=== PATIENT | female | born 1930 | race Caucasian/White ===

== ENCOUNTER 2016-06-27 11:21 | Inpatient (IN) | payer MEDICARE ==
[2016-06-27 16:11] VITALS: BMI 28.9
[2016-06-27] MEDS ORDERED: ALPRAZolam 0.25 MG TAB PO PRN (17:23)
[2016-06-27] MEDS ORDERED: NALOXONE 0.4 MG/ML 1 ML VIAL IV PRN (17:23)
[2016-06-27] MEDS ORDERED: ACETAMINOPHEN TAB 325 MG TAB PO PRN (17:23)
[2016-06-27] MEDS ORDERED: MELATONIN 3 MG TABLET PO PRN (17:23)
[2016-06-27] MEDS ORDERED: traMADol 50 MG TAB PO PRN (17:23)
[2016-06-27 18:13] LABS: Basophils # (A) 0.2 k/uL (0-0.2); Basophils % (A) 1 %; CH 32.5; CHCM 36.6; Eosinophils # (A) 4.3 k/uL (0-0.7); Eosinophils % (A) 19 %; HDW 2.81; HGB 10.3 gm/dL (11.4-16.0); Luc # (Auto) 0.51; Luc % (Auto) 2; Lymphocytes % (A) 9 %; MCH 31.7 pg (25.0-35.0); MCHC 35.4 g/dL (31.0-37.0); MCV 89.4 fL (80.0-100.0); Mean Platelet Volume 6.4; Monocytes # (A) 0.8 k/uL (0-1.0); Monocytes % (A) 3 %; Neutrophils # (A) 15.1 k/uL (1.3-7.7); Neutrophils % (A) 66 %; RBC 3.24 m/uL (3.80-5.40); RDW 13.5 % (11.5-15.5); WBC 22.9 k/uL (3.8-10.6)
[2016-06-27] MEDS: SODIUM CHLORIDE 0.9% 1,000 ML IV SCH (18:13)
[2016-06-27 18:30] LABS: Calcium 9.6 mg/dL (8.4-10.2); Magnesium 2.8 mg/dL (1.6-2.3); Phosphorous 3.8 mg/dL (2.5-4.5); Potassium 3.9 mmol/L (3.5-5.1); Total Protein 8.9 g/dL (6.3-8.2)
[2016-06-27] MEDS: AZITHROMYCIN 500 MG in SODIUM CHLORIDE 0.9% 250 ML IVPB SCH (19:00)
[2016-06-27] MEDS: FUROSEMIDE 10 MG/ML 2 ML VIAL IV SCH (19:02)
--- NOTE | 2016-06-27 19:08 | CT ---
EXAMINATION TYPE: CT chest wo con DATE OF EXAM: 06/27/2016 6:45 PM COMPARISON: NONE HISTORY: cough and congestion CT DLP: 372.3 mGycm Automated exposure control for dose reduction was used. FINDINGS: There is a patchy nodular infiltrate in the lateral aspect of the right upper lobe. The largest area measures 3 cm. There are other areas that measure up to 1 to 2 cm. There is no pleural effusion. The re is mild linear density at the lung bases consistent with subsegmental atelectasis. There is no per icardial effusion. Exam is limited by the lack of contrast. There is no evidence of aortic aneurysm. I see no definite hilar mass. The bony thorax appears intact. There is degenerative spurring in the t horacic spine. There is some mediastinal adenopathy with lymph nodes that measure almost 2 cm. IMPRESSION: THERE IS A RIGHT UPPER LOBE PATCHY NODULAR INFILTRATE. THE APPEARANCE IS NONSPECIFIC. I WOULD CONSIDE R NEOPLASTIC PROCESS AND INFLAMMATORY DISEASE. FOLLOW-UP IS RECOMMENDED. THIS DENSITY IS NEW COMPARED TO OLD CHEST X-RAY OF 02/05/2016 AND INFLAMMATORY DISEASE IS MORE LIKELY THEREFORE. THERE ARE NONSPE CIFIC MEDIASTINAL LYMPH NODES THAT MEASURE UP TO ALMOST 2 CM..
[2016-06-27] MEDS ORDERED: LEVALBUTEROL NEB (CONC) 1.25 MG/0.5 ML AMP INHALATION SCH (20:00)
[2016-06-27] MEDS ORDERED: IPRATROPIUM 0.5 MG/2.5 ML NEBU INHALATION SCH (20:00)
[2016-06-27] MEDS: SYMBICORT 160-4.5 MCG INHALER INHALATION SCH (20:14)
--- NOTE | 2016-06-27 22:02 | HP ---
DATE OF ADMISSION: 06/27/2016 CHIEF COMPLAINT: Shortness of breath, cough and sputum. HISTORY OF PRESENT ILLNESS: This 86-year-old woman with a past medical history of multiple medical problems including CHF, history of diabetes, hypertension, hypothyroidism, history of MRSA, history of being followed by Dr. Ornelas in the outpatient setting was not feeling well over the past several days. The patient had significant wheezing and some cough and no sputum and patient also cannot sleep and patient. The patient went to Dr. Ornelas's office. Right upper pneumonia suspected. Patient was directed to [facility] as a direct admission and admitted to the hospital for further evaluation and treatment. There is no history of fever, rigors or chills. No history of headaches, loss of consciousness, seizures at this time. PAST MEDICAL HISTORY: History of CHF, Type 2 diabetes mellitus, history of hypertension, hypothyroidism, MRSA, history of breast surgery. Medications prior to admission include home medications are: 1. Metformin 1000 mg p.o. in the morning. 2. Prandin 1 mg in the morning. 3. Multivitamin 1 p.o. daily. 4. Cozaar 50 mg daily. 5. Synthroid 112 mcg p.o. daily. 6. Lopid 600 mg p.o. b.i.d. 7. Lasix 20 mg a.c. breakfast and 10 mg p.o. daily. 8. Vitamin D3 1000 daily. 9. Tenormin 25 mg p.o. daily. 10. Ecotrin 81 mg p.r.n. 11. Pro-Air HFA one to two puffs q4h p.r.n. ALLERGIES: NADOLOL AND ATORVASTATIN. FAMILY HISTORY: No history of heart disease or strokes in the family. SOCIAL HISTORY: No history of smoking. No history of alcohol. REVIEW OF SYSTEMS: ENT: Diminishing hearing. Diminished vision. CARDIOVASCULAR: As mentioned earlier. RESPIRATORY: As mentioned earlier. GI: No nausea. : No dysuria. Nervous system: No numbness or weakness. Allergy/immunology: No asthma or hayfever. MUSCULOSKELETAL: As mentioned earlier. HEMATOLOGY: No history of anemia. ENDOCRINE: Hypothyroidism. CONSTITUTIONAL: As mentioned earlier. DERMATOLOGY: Negative. RHEUMATOLOGY: Negative. PSYCHIATRY: As mentioned earlier. PHYSICAL EXAMINATION: The patient is alert and oriented times three. Pulse is 75. Blood pressure 180/83, respiratory rate 20, temperature 97.8, pulse ox 93% on room air. HEENT: Conjunctivae normal. NECK: No jugular venous distention. CARDIOVASCULAR: S1, S2 muffled. RESPIRATORY: Breath sounds diminished at the bases. A few scattered rhonchi and expiratory wheezing and crackles bilaterally. ABDOMEN: Soft, nontender. No mass palpable. LEGS: No edema. No swelling. CENTRAL NERVOUS SYSTEM: Higher functions as mentioned earlier. Moves all four limbs. No focal deficits. LYMPHATICS: No lymph nodes palpable in the neck, axillae or groin. SKIN: No ulcer, rash or bleeding. LABS: Not available. ASSESSMENT: 1. Possible right upper lobe pneumonia community acquired. 2. Reactive bronchospasm. 3. Congestive heart failure with chronic diastolic dysfunction, ejection fraction of 60 to 65%. 4. Diabetes mellitus type 2. 5. Hypothyroidism. 6. Hyperlipidemia. 7. History of chronic renal failure. 8. History of degenerative joint disease. 9. History of glaucoma. 10. Change in mental status hallucinations, possibly acute, metabolic encephalopathy, multifactorial. 11. History of history of degenerative joint disease. 12. FULL CODE. RECOMMENDATIONS AND DISCUSSION: In this 86-year-old woman who presented with multiple complex medical issues, we will monitor the patient closely. Continue the current medications. Continue symptomatic treatment. Otherwise, at this time, I recommend bronchodilators, and as well as antibiotics. Broad spectrum antibiotics. CAT scan has been recommended per discussion with Dr. Ornelas. Otherwise, DVT prophylaxis. Resume the rest of the medications. Monitor blood sugars closely. Will closely monitor with Dr. Virgen from the pulmonary team. Otherwise prognosis is guarded because of multiple complex medical issues. Further recommendations to follow. A copy of dictation being forwarded to Dr. Ornelas who is the primary care physician. [facility]ENTER[facility]ai
[2016-06-27 22:13] LABS: Hemoglobin A1C 6.8 % (4.2-6.1)
[2016-06-28] MEDS ORDERED: IPRATROPIUM-ALBUTEROL 3 ML NEB INHALATION PRN (00:12)
[2016-06-28] MEDS: ASPIRIN 81 MG CHEW PO SCH ×2 (01:24→19:55)
[2016-06-28] MEDS: HEPARIN SODIUM,PORCINE 5,000 UNIT/ML 1 ML VIAL SQ SCH ×3 (01:24→19:55)
[2016-06-28] MEDS: GEMFIBROZIL 600 MG TAB PO SCH ×3 (01:24→19:55)
[2016-06-28] MEDS: ATENOLOL 25 MG TAB PO SCH ×3 (01:24→19:55)
[2016-06-28] MEDS: MULTIVITAMINS, THERA 1 EACH TAB PO SCH ×2 (01:25→19:55)
[2016-06-28] MEDS: INSULIN LISPRO (humaLOG) 300 UNIT/3 ML VIAL SQ SCH ×5 (02:23→20:08)
[2016-06-28] MEDS: LEVOTHYROXINE 112 MCG TAB PO SCH (06:28)
[2016-06-28] MEDS ORDERED: FUROSEMIDE 20 MG TAB PO SCH (07:30)
[2016-06-28 07:48] LABS: Basophils # (A) 0.1 k/uL (0-0.2); Basophils % (A) 1 %; CH 32.9; CHCM 37.7; Eosinophils # (A) 4.1 k/uL (0-0.7); Eosinophils % (A) 23 %; HCT 23.8 % (34.0-46.0); HDW 2.98; Hyperchromasia Slight; Luc # (Auto) 0.49; Luc % (Auto) 3; Lymphocytes # (A) 1.8 k/uL (1.0-4.8); Lymphocytes % (A) 10 %; MCH 32.2 pg (25.0-35.0); MCHC 36.8 g/dL (31.0-37.0); MCV 87.6 fL (80.0-100.0); Mean Platelet Volume 6.7; Monocytes # (A) 0.6 k/uL (0-1.0); Monocytes % (A) 3 %; Neutrophils # (A) 10.9 k/uL (1.3-7.7); Neutrophils % (A) 61 %; RBC 2.72 m/uL (3.80-5.40); RDW 13.4 % (11.5-15.5); WBC (Perox) 18.32
[2016-06-28 07:50] LABS: Glucose,Whole Blood 79 mg/dL (75-99)
[2016-06-28 08:04] LABS: HGB 8.7 gm/dL (11.4-16.0)
[2016-06-28] MEDS: REPAGLINIDE 1 MG TAB PO SCH (08:18)
[2016-06-28] MEDS: PANTOPRAZOLE 40 MG TABLET PO SCH (08:18)
[2016-06-28] MEDS: CHOLECALCIFEROL 1,000 UNIT TAB PO SCH (08:18)
[2016-06-28] MEDS: metFORMIN 500 MG TAB PO SCH (08:19)
[2016-06-28] MEDS: LOSARTAN 50 MG TAB PO SCH (08:19)
[2016-06-28] MEDS: EZETIMIBE 10 MG TAB PO SCH (08:19)
[2016-06-28] MEDS: FUROSEMIDE 10 MG/ML 2 ML VIAL IV SCH (08:20)
[2016-06-28 08:22] LABS: Calcium 8.9 mg/dL (8.4-10.2); Potassium 3.4 mmol/L (3.5-5.1)
[2016-06-28] MEDS: IPRATROPIUM-ALBUTEROL 3 ML NEB INHALATION SCH ×4 (09:16→20:10)
[2016-06-28] MEDS: SYMBICORT 160-4.5 MCG INHALER INHALATION SCH ×2 (09:16→20:10)
--- NOTE | 2016-06-28 10:34 | XR ---
EXAMINATION TYPE: XR chest 1V portable DATE OF EXAM: 06/28/2016 9:11 AM COMPARISON: NONE INDICATION: Pneumonia TECHNIQUE: Single frontal view of the chest is obtained. FINDINGS: The heart size is normal. The pulmonary vasculature is normal. The lungs are clear. IMPRESSION: 1. No acute pulmonary process.
[2016-06-28 11:31] LABS: Glucose,Whole Blood 236 mg/dL (75-99)
[2016-06-28] MEDS: THIAMINE 100 MG TAB PO SCH (12:48)
[2016-06-28] MEDS: FOLIC ACID 1 MG TAB PO SCH (12:48)
[2016-06-28 12:58] LABS: Manual Review Performed
[2016-06-28] MEDS ORDERED: POTASSIUM CHLORIDE ER 20 MEQ TAB.ER PO STA (14:57)
[2016-06-28 17:18] LABS: Glucose,Whole Blood 65 mg/dL (75-99)
[2016-06-28 17:37] LABS: Glucose,Whole Blood 82 mg/dL (75-99)
--- NOTE | 2016-06-28 18:01 | CONS ---
DATE OF CONSULTATION: This is a very pleasant 86-year-old female who was admitted from the office directly to the hospital with a diagnosis of right upper lobe pneumonia. The patient came into the office complaining of a couple days worth of increasing shortness of breath, coughing, wheezing, and phlegm production. She could not sleep. She was seen by Dr. Ornelas in the office and she was suspected to have a right upper lobe pneumonia. She was sent here to be admitted directly. She is feeling a bit better today. No fever, no chills. No chest pain. No nausea, vomiting, or diarrhea. No urinary complaints. Still very short of breath. She had a chest x-ray done on June 28 which showed no acute pulmonary process. She did have a CAT scan of the chest done yesterday on the day of admission, which showed a right upper lobe patchy nodular infiltrate. They were concerned about either a neoplastic or an inflammatory process. There was also some mediastinal lymph nodes. Her past medical history is positive for heart failure, diabetes, hypertension, hypothyroidism, previous history of MRSA infection and breast cancer. Home medications include metformin, Prandin, multiple vitamins, Cozaar, Synthroid, Lopid, Lasix, vitamin D3, Tenormin, Ecotrin and ProAir. Allergies included NADOLOL and ATORVASTATIN. Family history is noncontributory for heart disease or stroke. Social history is negative for tobacco, alcohol or illicit drug use. REVIEW OF SYSTEMS: CONSTITUTIONAL: Weakness. NEUROLOGIC: Negative. HEENT: Negative. CARDIOVASCULAR: Negative. PULMONARY: Shortness breath, chest tightness, wheezing, cough, under the pulmonary system. GI/: Negative. RHEUMATOLOGICAL: Negative. IMMUNOLOGIC: Negative. ENDOCRINOLOGIC: Negative. DERMATOLOGIC: Negative. Current vital signs are reviewed. Temperature is 97.5, heart rate 69, respirations 16, blood pressure 140/62, mean 88, room air saturation 93%, 2 L saturation is not documented. Appears in no acute distress. Mildly tachypneic and dyspneic. HEENT examination is grossly unremarkable. Mucous membranes are moist. No oral lesions. Neck is supple. Full range of motion. No adenopathy or thyromegaly. Neck veins are flat. Cardiovascular examination reveals regular rhythm and rate, S1, S2 normal. No S3, S4, murmur. Heart sounds are distant. Lungs reveal a few scattered rhonchi. No wheezes or crackles. Breath sounds are diminished throughout. Abdomen is soft. Bowel sounds are heard. No masses or tenderness. Extremities are intact. No cyanosis, clubbing or edema. Skin without rash or lesion. Neurologic examination is unremarkable. Labs are reviewed. White count 18, hemoglobin 8.7, hematocrit 23.8, platelet count 345,000, sodium 128, potassium 3.4, chloride is 85, CO2 of 30, BUN and creatinine were 61 and 1.74. Influenza studies were negative. Patient's medications are reviewed. She is on Xanax, Tylenol, aspirin, atenolol, azithromycin, Symbicort, vitamin D3, Zetia, folic acid, Lasix, gemfibrozil, subQ heparin, insulin, updrafts, levothyroxine, losartan, melatonin, multiple vitamins, Narcan, Protonix, Prandin, sodium chloride, ceftriaxone, metformin and tramadol. ASSESSMENT: 1. Right upper lobe pneumonia. 2. History of congestive heart failure. 3. History of hypertension. 4. Hypothyroidism. 5. Previous history of methicillin-resistant Staphylococcus aureus infection. 6. History of diabetes mellitus. 7. Hypothyroidism. PLAN: The patient's medications are appropriate. She is on Rocephin and Zithromax. She is on appropriate bronchodilators. Will continue to follow. No additional recommendations are made. Prognosis is guarded.
[2016-06-28] MEDS: AZITHROMYCIN 500 MG in SODIUM CHLORIDE 0.9% 250 ML IVPB SCH (18:12)
[2016-06-28] MEDS: SODIUM CHLORIDE 0.9% 1,000 ML IV SCH (19:55)
[2016-06-28 20:10] LABS: Glucose,Whole Blood 156 mg/dL (75-99)
[2016-06-29] MEDS: IPRATROPIUM-ALBUTEROL 3 ML NEB INHALATION SCH ×4 (07:28→20:03)
[2016-06-29] MEDS: SYMBICORT 160-4.5 MCG INHALER INHALATION SCH ×2 (07:28→20:03)
[2016-06-29] MEDS: LEVOTHYROXINE 112 MCG TAB PO SCH (07:33)
[2016-06-29] MEDS: metFORMIN 500 MG TAB PO SCH ×2 (07:34→07:42)
[2016-06-29] MEDS: INSULIN LISPRO (humaLOG) 300 UNIT/3 ML VIAL SQ SCH ×4 (07:34→20:38)
[2016-06-29] MEDS: PANTOPRAZOLE 40 MG TABLET PO SCH (07:35)
[2016-06-29] MEDS: REPAGLINIDE 1 MG TAB PO SCH (07:36)
[2016-06-29 07:42] LABS: Glucose,Whole Blood 52 mg/dL (75-99)
[2016-06-29] MEDS: FUROSEMIDE 10 MG/ML 2 ML VIAL IV SCH (07:42)
[2016-06-29] MEDS: LOSARTAN 50 MG TAB PO SCH (07:42)
[2016-06-29] MEDS: EZETIMIBE 10 MG TAB PO SCH (07:42)
[2016-06-29] MEDS: GEMFIBROZIL 600 MG TAB PO SCH ×2 (07:42→20:39)
[2016-06-29] MEDS: ATENOLOL 25 MG TAB PO SCH ×2 (07:42→20:39)
[2016-06-29] MEDS: HEPARIN SODIUM,PORCINE 5,000 UNIT/ML 1 ML VIAL SQ SCH ×2 (07:42→20:38)
[2016-06-29] MEDS: CHOLECALCIFEROL 1,000 UNIT TAB PO SCH (07:42)
[2016-06-29 08:00] LABS: Basophils # (A) 0.1 k/uL (0-0.2); Basophils % (A) 1 %; CH 32.8; Eosinophils # (A) 2.8 k/uL (0-0.7); Eosinophils % (A) 17 %; HCT 27.2 % (34.0-46.0); HDW 2.98; HGB 9.7 gm/dL (11.4-16.0); Luc # (Auto) 0.46; Luc % (Auto) 3; Lymphocytes # (A) 2.1 k/uL (1.0-4.8); Lymphocytes % (A) 13 %; MCH 31.9 pg (25.0-35.0); MCHC 35.7 g/dL (31.0-37.0); MCV 89.4 fL (80.0-100.0); Mean Platelet Volume 6.7; Monocytes # (A) 0.7 k/uL (0-1.0); Monocytes % (A) 4 %; Neutrophils # (A) 10.3 k/uL (1.3-7.7); Neutrophils % (A) 63 %; RBC 3.04 m/uL (3.80-5.40); RDW 13.7 % (11.5-15.5); WBC 16.4 k/uL (3.8-10.6); WBC (Perox) 16.85
[2016-06-29 08:08] LABS: Glucose,Whole Blood 52 mg/dL (75-99)
[2016-06-29 08:09] LABS: Calcium 9.3 mg/dL (8.4-10.2); Potassium 3.7 mmol/L (3.5-5.1)
[2016-06-29 08:12] LABS: Glucose,Whole Blood 59 mg/dL (75-99)
[2016-06-29 08:28] LABS: Glucose,Whole Blood 65 mg/dL (75-99)
[2016-06-29 09:03] LABS: Appearance,Urine Clear (Clear); Bilirubin,Urine Negative (Negative); Glucose,Urine (UA) Negative (Negative); Ketones,Urine Negative (Negative); Leukocyte Esterase,Urine Negative (Negative); Nitrite,Urine Negative (Negative); PH, Urine 7.5 (5.0-8.0); Protein,Urine Negative (Negative); Specific Gravity,Urine 1.004 (1.001-1.035); UA Billing (MACRO vs. MICRO) CHEM; Urobilinogen,Urine <2.0 mg/dL (<2.0)
[2016-06-29 09:12] LABS: Glucose,Whole Blood 112 mg/dL (75-99)
--- NOTE | 2016-06-29 09:45 | PN ---
DATE OF SERVICE: 06/28/2016 This 86-year-old woman who was admitted, referred from Dr. Ornelas's office, with possible right upper lobe pneumonia. The patient has been closely monitored. The patient had a high white count and anemia also. Patient had multiple lab abnormalities including hyponatremia as well. Blood sugar has been elevated. The patient also had a chest x-ray which was reported as showing no acute abnormality but; however, a chest CT was done, which showed a right lower lobe patchy infiltrate. Appearance is nonspecific. Neoplastic inflammatory process in the differential diagnosis. Nonspecific mediastinal adenopathy was also noted. PAST MEDICAL HISTORY: Reviewed. REVIEW OF SYSTEMS: CARDIOVASCULAR: No angina. RESPIRATORY: As mentioned earlier. GI: No nausea. : No dysuria. NERVOUS SYSTEM: No numbness or weakness. MUSCULOSKELETAL As mentioned earlier. Current medications are reviewed, which include: 1. Tylenol 650 q.6 p.r.n. 2. DuoNeb q.i.d. and p.r.n. 3. Xanax 0.25 q.6. 4. Aspirin 81 mg. 5. Tenormin 25 mg b.i.d. 6. Zithromax 500 mg daily. 7. Symbicort 160/4.5, 2 puffs b.i.d. 8. Rocephin 1 gram daily. 9. Vitamin D 3000 daily. 10. Zetia 10 mg daily. 11. Folic acid 1 mg daily. 12. Lasix 20 mg daily. 13. Lopid. 14. Heparin. 15. Humalog. 16. Synthroid. 17. Cozaar. 18. Melatonin. 19. Glucophage. 20. Multivitamins. 21. Narcan. 22. Protonix. 23. Prandin. 24. Vitamin B1. 25. Ultram. PHYSICAL EXAMINATION: Patient is alert and oriented x3. Pulse 71, blood pressure 140/60, respirations 18, temperature 97.6 degrees, pulse ox 97% on room air. HEENT: Conjunctivae normal. NECK: No jugular venous distention. CARDIOVASCULAR: S1 and S2, muffled. RESPIRATORY: Breath sounds diminished at the bases. Bilateral scattered rhonchi and crackles. Expiratory wheezing. ABDOMEN: Soft, nontender. LEGS: No edema, no swelling. NERVOUS SYSTEM: No focal deficits. LABS: WBC 18, hemoglobin 8.7. Sodium 128, potassium 3.4. Accu-Cheks are noted. ASSESSMENT: 1. Possible right upper lobe pneumonia, community acquired. Rule out malignancy. 2. Reactive bronchospasm. 3. Congestive heart failure with chronic diastolic dysfunction, ejection fraction of 60 to 65%. 4. Diabetes mellitus type 2. 5. Hypothyroidism. 6. Hyperlipidemia. 7. History of chronic renal failure. 8. History of degenerative joint disease. 9. History of glaucoma. 10. Change in mental status with hallucinations, possibly acute, metabolic encephalopathy, multifactorial. 11. History of degenerative joint disease. 12. Hyponatremia. 13. Hypokalemia. 14. Increased creatinine with chronic kidney disease stage III. 15. Anemia, normocytic anemia of chronic disease. 16. Increased WBC. 17. FULL CODE. RECOMMENDATIONS AND DISCUSSION: This 86-year-old woman who presented with multiple complex medical issues, we will monitor the patient closely. Continue the current medications, continue with symptomatic treatment. continue with bronchodilators and empiric antibiotics. Closely follow with Dr. Virgen. Otherwise, DVT prophylaxis. Guarded prognosis because of multiple complex medical issues. Further recommendations to follow. See orders for details. MTDD
[2016-06-29 11:22] LABS: Glucose,Whole Blood 277 mg/dL (75-99)
[2016-06-29] MEDS: FOLIC ACID 1 MG TAB PO SCH (12:40)
[2016-06-29] MEDS: THIAMINE 100 MG TAB PO SCH (12:41)
--- NOTE | 2016-06-29 16:08 | PN ---
86-year-old female admitted from the office with a diagnosis of the right upper lobe pneumonia. The patient is feeling a bit better. Still very short of breath. Also became hypoglycemic this morning. Was given some dextrose for that. Anyway, the patient is coughing up yellow-green phlegm. Still very short of breath, very bronchospastic. Short of breath with any activity. Had a bad night last night and in fact that she could not sleep. Anyway, she does see Dr. Ornelas my partner in the office. He will be production expert tomorrow. He will continue to see her while she is here. Denies any fever, chills. No nausea, vomiting, or diarrhea. Current vital signs are reviewed. Her temperature is 97.8, heart rate 80, respirations 16, blood pressure 145/63, mean 90, 2 liters saturation 97%. Appears in no acute distress. HEENT examination is grossly unremarkable. Mucous membranes are moist. No oral lesions. Neck is supple. Full range of motion. No adenopathy or thyromegaly. Neck is veins are flat. Cardiovascular examination reveals regular rhythm and rate. Heart sounds are distant. Heart rate 70. S1, S2 normal. No murmur. Lungs reveal diffuse inspiratory and expiratory rhonchi and wheezes. Breath sounds coarse. There is prolongation. She coughs and wheezes on forced maneuver. ABDOMEN: Soft. Bowel sounds are heard. EXTREMITIES: Intact. No cyanosis, clubbing, or edema. Skin without rash. Brief neurologic examination nonfocal. Labs are reviewed. White count 16.4, hemoglobin 9.7, hematocrit 27.2, platelet count normal. The patient sodium 131, potassium 3.7, chloride 89, CO2 of 30, BUN and creatinine were 49 and 1.56. The rest of the labs look okay. Urine is negative. Influenza studies were negative. Chest x-ray was reviewed. The chest x-ray shows not much going on in the left upper lobe. This chest x-ray showed not much going on in the right upper lobe. A CAT scan but much for telling with the right upper lobe patchy nodular infiltrates. Medications are reviewed. Microbiology is thus far negative. IMPRESSION: 1. Patchy/nodule right upper lobe pneumonia. 2. History of congestive heart failure. 3. Hypertension. 4. Hypothyroidism. 5. Previous history of methicillin-resistant Staphylococcus aureus infection. 6. History of diabetes mellitus. 7. Hypothyroidism. PLAN: The patient will continue on her current regimen. This includes Zithromax, Symbicort, albuterol and Atrovent, ceftriaxone. I am going to add some corticosteroids to her regimen. We will continue to follow. She will see Dr. Ornelas tomorrow. Additional recommendations and suggestions are forthcoming.
[2016-06-29] MEDS: SODIUM CHLORIDE 0.9% 1,000 ML IV SCH (17:04)
[2016-06-29] MEDS: methylPREDNISolone SOD SUCCI 40 MG/ML 1 ML VIAL IV SCH ×2 (17:04→22:57)
[2016-06-29] MEDS: AZITHROMYCIN 500 MG TAB PO SCH (17:04)
[2016-06-29 17:23] LABS: Glucose,Whole Blood 94 mg/dL (75-99)
[2016-06-29] MEDS: guaiFENesin SYRUP 100MG/5ML 200 MG/10 ML CUP PO PRN (20:13)
[2016-06-29 20:35] LABS: Glucose,Whole Blood 273 mg/dL (75-99)
[2016-06-29] MEDS: ASPIRIN 81 MG CHEW PO SCH (20:39)
[2016-06-29] MEDS: MULTIVITAMINS, THERA 1 EACH TAB PO SCH (20:39)
[2016-06-30 02:13] LABS: Glucose,Whole Blood 291 mg/dL (75-99)
[2016-06-30] MEDS: LEVOTHYROXINE 112 MCG TAB PO SCH (06:05)
[2016-06-30 07:11] LABS: Glucose,Whole Blood 298 mg/dL (75-99)
[2016-06-30] MEDS: methylPREDNISolone SOD SUCCI 40 MG/ML 1 ML VIAL IV SCH ×3 (07:49→23:16)
[2016-06-30] MEDS: FOLIC ACID 1 MG TAB PO SCH (07:49)
[2016-06-30] MEDS: HEPARIN SODIUM,PORCINE 5,000 UNIT/ML 1 ML VIAL SQ SCH ×2 (07:50→21:09)
[2016-06-30] MEDS: EZETIMIBE 10 MG TAB PO SCH (07:50)
[2016-06-30] MEDS: ATENOLOL 25 MG TAB PO SCH ×2 (07:50→21:10)
[2016-06-30] MEDS: PANTOPRAZOLE 40 MG TABLET PO SCH (07:50)
[2016-06-30] MEDS: GEMFIBROZIL 600 MG TAB PO SCH ×2 (07:50→21:10)
[2016-06-30] MEDS: LOSARTAN 50 MG TAB PO SCH (07:50)
[2016-06-30] MEDS: INSULIN LISPRO (humaLOG) 300 UNIT/3 ML VIAL SQ SCH ×4 (07:50→21:09)
[2016-06-30] MEDS: IPRATROPIUM-ALBUTEROL 3 ML NEB INHALATION SCH ×4 (07:50→20:02)
[2016-06-30] MEDS: CHOLECALCIFEROL 1,000 UNIT TAB PO SCH (07:50)
[2016-06-30] MEDS: FUROSEMIDE 10 MG/ML 2 ML VIAL IV SCH (07:50)
[2016-06-30] MEDS: SYMBICORT 160-4.5 MCG INHALER INHALATION SCH ×2 (07:50→20:02)
[2016-06-30] MEDS: MULTIVITAMINS, THERA 1 EACH TAB PO SCH (07:50)
[2016-06-30] MEDS: THIAMINE 100 MG TAB PO SCH (07:53)
[2016-06-30 08:00] LABS: Basophils % (A) 0 %; CH 32.9; Eosinophils # (A) 0.1 k/uL (0-0.7); Eosinophils % (A) 1 %; HCT 25.1 % (34.0-46.0); HDW 2.87; HGB 8.8 gm/dL (11.4-16.0); Luc # (Auto) 0.13; Luc % (Auto) 1; Lymphocytes # (A) 1.5 k/uL (1.0-4.8); Lymphocytes % (A) 12 %; MCH 32.2 pg (25.0-35.0); MCHC 35.1 g/dL (31.0-37.0); MCV 91.9 fL (80.0-100.0); Mean Platelet Volume 6.7; Monocytes # (A) 0.3 k/uL (0-1.0); Monocytes % (A) 2 %; Neutrophils # (A) 10.7 k/uL (1.3-7.7); Neutrophils % (A) 84 %; RBC 2.73 m/uL (3.80-5.40); RDW 13.7 % (11.5-15.5); WBC 12.8 k/uL (3.8-10.6); WBC (Perox) 13.86
[2016-06-30 08:13] LABS: Calcium 9.2 mg/dL (8.4-10.2); Potassium 4.6 mmol/L (3.5-5.1)
--- NOTE | 2016-06-30 08:46 | PN ---
DATE OF SERVICE: 06/29/2016 This 86-year-old woman who was admitted with patchy right upper lung pneumonia is also on broad-spectrum IV antibiotics. The patient still has some shortness of breath. Patient also has significant COPD also. Patient is being closely monitored. Dr. Virgen is also following the patient closely also. The cultures are negative so for. PAST MEDICAL HISTORY: Reviewed. REVIEW OF SYSTEMS: CARDIOVASCULAR: No angina or palpitations. RESPIRATORY: As mentioned earlier. GI: No nausea. : No dysuria. Nervous system: No numbness, weakness. Current medications are reviewed and include: 1. Tylenol 650 q.6 p.r.n. 2. DuoNeb q.i.d. and p.r.n. 3. Xanax 0.25. 4. Aspirin 81 mg. 5. Tenormin 25 mg b.i.d. 6. Zithromax 500 mg p.o. daily. 7. Symbicort 160/4.5 two puffs b.i.d. 8. Rocephin 1 gm daily. 9. Vitamin D3 1000 daily. 10. Zetia 10 mg p.o. daily. 11. Folic acid 1 mg daily. 12. Lasix 20 mg daily. 13. Lopid 600 mg p.o. b.i.d. 14. Heparin 5000 subcu b.i.d. 15. Synthroid 112 mcg b.i.d. daily. 16. Cozaar 50 mg p.o. daily. 17. Melatonin 3 mg q.h.s. 19. Solu-Medrol 40 IV q8. 20. Multivitamins one p.o. daily. 21. Narcan 0.2 q2 p.r.n. 22. Protonix 40 mg daily. 23. Prandin 1 milligrams in the morning.. 24. Vitamin B1 100 mg. 25. Ultram 50 mg q.6h p.r.n. PHYSICAL EXAMINATION: The patient is alert and oriented times three. Pulse 79, blood pressure 140/52, respirations 18, temperature 98.2. Pulse ox 97% on 2 L. HEENT: Conjunctivae normal. NECK: No jugular venous distention. RESPIRATORY: Breath sounds diminished at the bases. A few scattered rhonchi and crackles. Expiratory wheezing also present. ABDOMEN: Soft. Nontender. LEGS: No edema. No swelling. LABS: Accu-Cheks 277, 94, WBC 16.5, hemoglobin 9.7, glucose 38. Please also note, the patient had hypoglycemia also. ASSESSMENT: 1. Right upper lobe pneumonia, community acquired, rule out malignancy. 2. Reactive bronchospasm. 3. Congestive heart failure with chronic diastolic dysfunction, ejection fraction 60 to 65%. 4. Hypoglycemic episodes. 5. Diabetes mellitus type 2, uncontrolled. 6. Hypothyroidism. 7. Hyperlipidemia. 8. History of chronic renal failure. 9. History of degenerative joint disease. 10. History of glaucoma. 11. History of change in mental status with hallucinations, possibly acute, metabolic encephalopathy, multifactorial. 12. History of degenerative joint disease. 13. Hyponatremia. 14. Hyperkalemia. 15. Increased creatinine with chronic disease stage III. 16. Anemia, normocytic anemia of chronic disease. 17. Increased WBC. 18. FULL CODE. RECOMMENDATIONS AND DISCUSSION: Continue the current medications. Continue symptomatic treatment, continue bronchodilators, steroids. Monitor blood sugars closely. I would also recommend to hold off anti-diabetic medications. Monitor creatinine closely. Closely follow with Dr. Virgen. Guarded prognosis because multiple complex medical issues. Further recommendations to follow. MTDD
[2016-06-30 11:35] LABS: Glucose,Whole Blood 232 mg/dL (75-99)
[2016-06-30 16:44] LABS: Glucose,Whole Blood 289 mg/dL (75-99)
[2016-06-30] MEDS: AZITHROMYCIN 500 MG TAB PO SCH (17:10)
[2016-06-30] MEDS: SODIUM CHLORIDE 0.9% 1,000 ML IV SCH (17:11)
[2016-06-30] MEDS: guaiFENesin SYRUP 100MG/5ML 200 MG/10 ML CUP PO PRN (17:14)
--- NOTE | 2016-06-30 18:17 | P.PN ---
Subjective Principal diagnosis: Right upper lobe patchy nodular infiltrate/pneumonia This is a very pleasant 86-year-old female patient who was admitted from our office for right upper lobe pneumonia. She had been having ongoing issues with shortness of breath, cough congestion phlegm production. She is seen again today in follow-up on the regular medical floor. She is awake and alert in no acute distress. She is still quite dyspneic on minimal exertion. Her follow- up chest x-ray did show some clearing of the right upper lobe looked opacity but not quite cleared completely. Her CAT scan did reveal some adenopathy as well possibly reactive but neoplasm remains in the differential. She is maintaining good O2 saturations in the upper 90s on room air. She is currently afebrile. Hemodynamically stable. Objective - Vital Signs Vital signs: Vital Signs Temp 97.8 F 06/30/16 15:00 Pulse 76 06/30/16 15:54 Resp 18 06/30/16 15:00 BP 126/58 06/30/16 15:00 Pulse Ox 96 06/30/16 17:00 Intake & Output 06/29/16 06/30/16 06/30/16 18:59 06:59 18:59 Intake Total 688 032 3724 Balance 928 609 9905 Weight 69.4 kg Intake: IV 160 320 160 Sodium Chloride 0.9% 1, 160 320 160 000 ml @ 20 mls/hr IV . Q24H KAYLI Rx#:[id number] Oral 1200 Other: Voiding Method Toilet Toilet Toilet # Voids 4 1 3 - Exam GENERAL EXAM: Alert, active, comfortable in no apparent distress. HEAD: Normocephalic. EYES: Normal reaction of pupils, equal size. NOSE: Clear with pink turbinates. THROAT: No erythema or exudates. NECK: No masses, no JVD. CHEST: No chest wall deformity. LUNGS: Equal air entry with few scattered rhonchi. CVS: S1 and S2 normal with no audible murmurs, regular rhythm. ABDOMEN: No hepatosplenomegaly, normal bowel sounds, no guarding or rigidity. SPINE: No scoliosis or deformity SKIN: No rashes CENTRAL NERVOUS SYSTEM: No focal deficits, tone is normal in all 4 extremities. Extremities: There is no significant peripheral edema. No clubbing, no cyanosis. Peripheral pulses are intact. - Labs CBC & Chem 7: 06/30/16 07:18 06/30/16 07:18 Labs: Abnormal Lab Results - Last 24 Hours (Table) 06/29/16 06/30/16 06/30/16 Range/Units 20:34 02:12 07:10 WBC (3.8-10.6) k/uL RBC (3.80-5.40) m/uL Hgb (11.4-16.0) gm/dL Hct (34.0-46.0) % Neutrophils # (1.3-7.7) k/uL Sodium (137-145) mmol/L Chloride (98-107) mmol/L BUN (7-17) mg/dL Creatinine (0.52-1.04) mg/dL Glucose (74-99) mg/dL POC Glucose (mg/dL) 273 H 291 H 298 H (75-99) mg/dL 06/30/16 06/30/16 06/30/16 Range/Units 07:18 07:18 11:34 WBC 12.8 H (3.8-10.6) k/uL RBC 2.73 L (3.80-5.40) m/uL Hgb 8.8 L (11.4-16.0) gm/dL Hct 25.1 L (34.0-46.0) % Neutrophils # 10.7 H (1.3-7.7) k/uL Sodium 124 L (137-145) mmol/L Chloride 87 L (98-107) mmol/L BUN 48 H (7-17) mg/dL Creatinine 1.51 H (0.52-1.04) mg/dL Glucose 249 H (74-99) mg/dL POC Glucose (mg/dL) 232 H (75-99) mg/dL 06/30/16 Range/Units 16:43 WBC (3.8-10.6) k/uL RBC (3.80-5.40) m/uL Hgb (11.4-16.0) gm/dL Hct (34.0-46.0) % Neutrophils # (1.3-7.7) k/uL Sodium (137-145) mmol/L Chloride (98-107) mmol/L BUN (7-17) mg/dL Creatinine (0.52-1.04) mg/dL Glucose (74-99) mg/dL POC Glucose (mg/dL) 289 H (75-99) mg/dL Microbiology - Last 24 Hours (Table) 06/27/16 17:55 Blood Culture - Preliminary Blood No Growth after 48 hours Assessment and Plan Plan: Impression: #1 Right upper lobe pneumonia with partial clearing on today's chest x-ray. #2 History of congestive heart failure. #3 Hypertension. #4 Hypo-thyroidism. #5 Previous history of methicillin-resistant Staphylococcus aureus infection. #6 Diabetes mellitus. #7 Acute renal failure, improving current creatinine 1.51. #8 Hyponatremia, current sodium 124. #9 Anemia, current hemoglobin 8.8. Plan: The patient was seen and evaluated by Dr. Ornelas. Her chest x-ray and labs were reviewed. We'll continue with her current antibiotics in the form of Rocephin and azithromycin. We'll continue with bronchodilators and IV Solu- Medrol. We'll increase her activity as tolerated. We'll continue to follow.
[2016-06-30 20:32] LABS: Glucose,Whole Blood 197 mg/dL (75-99)
[2016-06-30] MEDS: ASPIRIN 81 MG CHEW PO SCH (21:10)
[2016-07-01 01:58] LABS: Glucose,Whole Blood 228 mg/dL (75-99)
--- NOTE | 2016-07-01 05:31 | PN ---
DATE OF SERVICE: 06/30/2016 This 86-year-old woman who was admitted with right upper lobe pneumonia and bronchospasms improving significantly. No chest pain or palpitation. No fever. Pulmonary is following the patient. the patient is on broad-spectrum IV antibiotics. On exam, alert and oriented x3. Pulse is 80 blood pressure 126/58, respirations 18, temperature 97.8, pulse os 96% on room air. HEENT: Conjunctivae normal. NECK: No jugular venous distention. CARDIOVASCULAR: S1 and S2, muffled. RESPIRATORY: Breath sounds diminished at the bases. A few scattered rhonchi and crackles. Expiratory wheezing also present. ABDOMEN: Soft, nontender. LEGS: No edema, no swelling. NERVOUS SYSTEM: No focal deficits. LABS: WBC 12.8, hemoglobin 8.8. Sodium 124. ASSESSMENT: 1. Right upper lobe pneumonia, community acquired, rule out malignancy. 2. Reactive bronchospasm. 3. Congestive heart failure with chronic diastolic dysfunction, ejection fraction 60% to 65%. 4. Hypoglycemic episode. 5. Diabetes mellitus type 2, uncontrolled. 6. Hypothyroidism. 7. Hyperlipidemia. 8. History of chronic renal failure, stage III. 9. History of degenerative joint disease. 10. History of glaucoma. 11. History of change in mental and hallucinations, possibly acute metabolic encephalopathy multifactorial. 12. Hyponatremia. 13. Hypokalemia. 14. Increased creatinine with chronic kidney disease stage III. 15. Anemia, normocytic anemia of chronic disease. 16. Increased WBC. 17. FULL CODE. RECOMMENDATIONS AND DISCUSSION: Continue current medications and symptomatic treatment with bronchodilators. Otherwise, repeat labs. Closely follow with multiple consultants. Guarded prognosis. Further recommendations to follow.
[2016-07-01] MEDS: LEVOTHYROXINE 112 MCG TAB PO SCH (06:13)
[2016-07-01 07:19] LABS: Glucose,Whole Blood 155 mg/dL (75-99)
[2016-07-01] MEDS: SYMBICORT 160-4.5 MCG INHALER INHALATION SCH ×2 (07:27→19:27)
[2016-07-01] MEDS: IPRATROPIUM-ALBUTEROL 3 ML NEB INHALATION SCH ×4 (07:27→19:27)
[2016-07-01 07:40] LABS: Basophils % (A) 0 %; CH 32.9; CHCM 36.5; Eosinophils # (A) 0.1 k/uL (0-0.7); Eosinophils % (A) 1 %; HCT 25.3 % (34.0-46.0); HDW 2.92; HGB 9.3 gm/dL (11.4-16.0); Luc # (Auto) 0.35; Luc % (Auto) 2; Lymphocytes # (A) 1.9 k/uL (1.0-4.8); Lymphocytes % (A) 12 %; MCH 33.2 pg (25.0-35.0); MCHC 36.7 g/dL (31.0-37.0); MCV 90.7 fL (80.0-100.0); Mean Platelet Volume 6.6; Monocytes % (A) 6 %; Neutrophils % (A) 79 %; RBC 2.79 m/uL (3.80-5.40); RDW 13.5 % (11.5-15.5); WBC 16.4 k/uL (3.8-10.6); WBC (Perox) 17.56
[2016-07-01] MEDS: guaiFENesin SYRUP 100MG/5ML 200 MG/10 ML CUP PO PRN (07:47)
[2016-07-01] MEDS: INSULIN LISPRO (humaLOG) 300 UNIT/3 ML VIAL SQ SCH ×4 (07:49→21:36)
[2016-07-01] MEDS: ATENOLOL 25 MG TAB PO SCH ×2 (07:50→21:32)
[2016-07-01] MEDS: methylPREDNISolone SOD SUCCI 40 MG/ML 1 ML VIAL IV SCH ×2 (07:50→17:05)
[2016-07-01] MEDS: PANTOPRAZOLE 40 MG TABLET PO SCH (07:50)
[2016-07-01] MEDS: HEPARIN SODIUM,PORCINE 5,000 UNIT/ML 1 ML VIAL SQ SCH ×2 (07:51→21:32)
[2016-07-01] MEDS: GEMFIBROZIL 600 MG TAB PO SCH ×2 (07:51→21:32)
[2016-07-01] MEDS: FUROSEMIDE 10 MG/ML 2 ML VIAL IV SCH (07:51)
[2016-07-01] MEDS: EZETIMIBE 10 MG TAB PO SCH (07:51)
[2016-07-01] MEDS: CHOLECALCIFEROL 1,000 UNIT TAB PO SCH (07:51)
[2016-07-01] MEDS: LOSARTAN 50 MG TAB PO SCH (07:52)
[2016-07-01 08:07] LABS: Calcium 9.7 mg/dL (8.4-10.2); Potassium 4.6 mmol/L (3.5-5.1)
[2016-07-01 12:32] LABS: Glucose,Whole Blood 219 mg/dL (75-99)
[2016-07-01] MEDS: THIAMINE 100 MG TAB PO SCH (12:37)
[2016-07-01] MEDS: FOLIC ACID 1 MG TAB PO SCH (12:37)
--- NOTE | 2016-07-01 12:58 | XR ---
EXAMINATION TYPE: XR chest 2V DATE OF EXAM: 07/01/2016 12:51 PM COMPARISON: Prior chest x-ray from 3 days earlier. Older chest x-ray and CT chest from 4 days earlier . HISTORY: Right upper lobe pneumonia per order. TECHNIQUE: Frontal and lateral views of the chest are obtained. FINDINGS: There is persistent right upper lobe opacity. There is new patchy left basilar atelectasis . No pleural effusion or pneumothorax is seen bilaterally. The cardiac silhouette size is within nor mal limits. The osseous structures are intact. IMPRESSION: Persistent suspicious right upper lobe nodular infiltrate unchanged from last several st ud and new from January 2016. New patchy left basilar atelectasis is felt present.
--- NOTE | 2016-07-01 13:26 | P.PN ---
Subjective his is a very pleasant 86-year-old female patient who was admitted from our office for right upper lobe pneumonia. She had been having ongoing issues with shortness of breath, cough congestion phlegm production. She is seen again today in follow-up on the regular medical floor. She is awake and alert in no acute distress. She is still quite dyspneic on minimal exertion. Her follow- up chest x-ray did show some clearing of the right upper lobe looked opacity but not quite cleared completely. Her CAT scan did reveal some adenopathy as well possibly reactive but neoplasm remains in the differential. She is maintaining good O2 saturations in the upper 90s on room air. She is currently afebrile. Hemodynamically stable. On the patient is being seen in follow-up. She had some increased cough and overnight. This morning she is feeling better. A repeat chest x-ray was done and showed a persistence right upper lobe pulmonary infiltrate unchanged from the previous studies. There is a new patchy infiltration of the left lung base. I am more being concerned of an underlying malignancy nontender this patchy infiltrate in the right upper lobe has not changed and the patient has mediastinal lymphadenopathy. Objective - Vital Signs Vital signs: Vital Signs Temp 97.4 F L 07/01/16 07:00 Pulse 74 07/01/16 11:22 Resp 16 07/01/16 07:00 BP 181/72 07/01/16 07:00 Pulse Ox 96 07/01/16 07:28 Intake & Output 06/30/16 07/01/16 07/01/16 18:59 06:59 18:59 Intake Total 1360 320 240 Balance 1360 320 240 Intake: IV 160 320 Sodium Chloride 0.9% 1, 160 320 000 ml @ 20 mls/hr IV . Q24H [facility] Rx#:[id number] Oral 1200 240 Other: Voiding Method Toilet Toilet # Voids 3 1 - Exam The patient appeared well nourished and normally developed. Vital signs as documented. Head exam is unremarkable. No scleral icterus or corneal arcus noted. Neck is without jugular venous distension, thyromegaly, or carotid bruits. Carotid upstrokes are brisk bilaterally. Lungs showing diminished breath sound along with prolongation of expiratory phase of breathing. Cardiac exam reveals the PMI to be normally sized and situated. Rhythm is regular. First and second heart sounds normal. No murmurs, rubs or gallops. Abdominal exam reveals normal bowel sounds, no masses, no organomegaly and no aortic enlargement. Extremities are nonedematous and both femoral and pedal pulses are normal. - Labs CBC & Chem 7: 07/01/16 07:19 07/01/16 07:19 Labs: Abnormal Lab Results - Last 24 Hours (Table) 06/30/16 06/30/16 07/01/16 Range/Units 16:43 20:30 01:56 WBC (3.8-10.6) k/uL RBC (3.80-5.40) m/uL Hgb (11.4-16.0) gm/dL Hct (34.0-46.0) % Plt Count (150-450) k/uL Neutrophils # (1.3-7.7) k/uL Sodium (137-145) mmol/L Chloride (98-107) mmol/L BUN (7-17) mg/dL Creatinine (0.52-1.04) mg/dL Glucose (74-99) mg/dL POC Glucose (mg/dL) 289 H 197 H 228 H (75-99) mg/dL 07/01/16 07/01/16 07/01/16 Range/Units 07:18 07:19 07:19 WBC 16.4 H (3.8-10.6) k/uL RBC 2.79 L (3.80-5.40) m/uL Hgb 9.3 L (11.4-16.0) gm/dL Hct 25.3 L (34.0-46.0) % Plt Count 458 H (150-450) k/uL Neutrophils # 13.0 H (1.3-7.7) k/uL Sodium 124 L (137-145) mmol/L Chloride 88 L (98-107) mmol/L BUN 50 H (7-17) mg/dL Creatinine 1.53 H (0.52-1.04) mg/dL Glucose 127 H (74-99) mg/dL POC Glucose (mg/dL) 155 H (75-99) mg/dL 07/01/16 Range/Units 12:31 WBC (3.8-10.6) k/uL RBC (3.80-5.40) m/uL Hgb (11.4-16.0) gm/dL Hct (34.0-46.0) % Plt Count (150-450) k/uL Neutrophils # (1.3-7.7) k/uL Sodium (137-145) mmol/L Chloride (98-107) mmol/L BUN (7-17) mg/dL Creatinine (0.52-1.04) mg/dL Glucose (74-99) mg/dL POC Glucose (mg/dL) 219 H (75-99) mg/dL Microbiology - Last 24 Hours (Table) 06/27/16 17:55 Blood Culture - Preliminary Blood No Growth after 72 hours Assessment and Plan Plan: Impression: #1 Right upper lobe pneumonia with partial clearing on today's chest x-ray. On subsequent chest x-ray findings, the right upper lobe pulmonary infiltrate remains unchanged and reviewing the CAT scan again raises the suspicion for an underlying malignancy especially the patient has significant mediastinal lymphadenopathy which could be potentially pathologic. #2 History of congestive heart failure. #3 Hypertension. #4 Hypo-thyroidism. #5 Previous history of methicillin-resistant Staphylococcus aureus infection. #6 Diabetes mellitus. #7 Acute renal failure, improving current creatinine 1.51. #8 Hyponatremia, current sodium 124, rule out SIADH #9 Anemia, current hemoglobin 9.3 PLAN I will discuss the chest x-ray findings with the patient. There is a suspicion for underlying malignancy underlying this pulmonate infiltrates. The patient is also having low sodium which could be potentially manifestation of SIADH. In any rate, I think is reasonable to consider bronchoscopy on this patient with transbronchial needle aspirate of the mediastinal lymph nodes and based on that further recommendations to follow. I'm going to discuss this with the patient. If she is agreeable, we'll proceed with a bronchoscopy in a.m.
[2016-07-01 16:58] LABS: Glucose,Whole Blood 297 mg/dL (75-99)
[2016-07-01] MEDS: predniSONE 20 MG TAB PO SCH (16:58)
[2016-07-01] MEDS: AZITHROMYCIN 500 MG TAB PO SCH (16:58)
[2016-07-01] MEDS: SODIUM CHLORIDE 0.9% 1,000 ML IV SCH (17:01)
[2016-07-01 21:07] LABS: Glucose,Whole Blood 247 mg/dL (75-99)
[2016-07-01] MEDS: MULTIVITAMINS, THERA 1 EACH TAB PO SCH (21:32)
[2016-07-01] MEDS: ASPIRIN 81 MG CHEW PO SCH (21:32)
--- NOTE | 2016-07-01 22:31 | PN ---
DATE OF SERVICE: 07/01/2016 This 86-year-old woman who was admitted with right upper love pneumonia, possibly community acquired is being closely monitored. The patient had IV antibiotics. The patient appears to be stabilizing at this time. The patient complains of wheezing and some shortness of breath and some cough. Also Dr. Ornelas is following the patient closely. No chest pain or palpitation. No fever. On exam, alert and oriented x3. Pulse 82, blood pressure 162/69, respiratory rate 16, temperature 97.7, pulse ox 90% on room air. HEENT: Conjunctivae normal. NECK: No jugular venous distention. CARDIOVASCULAR: S1, S2 muffled. RESPIRATORY: Breath sounds diminished at the bases. A few scattered rhonchi and crackles. ABDOMEN: Soft. Nontender. Legs: No edema. No swelling. Nervous system: Higher functions as mentioned earlier. Moves all four limbs. No focal deficits. LYMPHATICS: No lymph nodes palpable in the neck, axillae or groin. SKIN: No ulcer, rash or bleeding. LABS: WBC 16.9, hemoglobin is 9.3, sodium 124. ASSESSMENT: 1. Right upper lobe pneumonia community acquired remote possible due to malignancy. 2. Reactive bronchospasm. 3. Congestive heart failure with chronic diastolic dysfunction, ejection fraction 60 to 65% with no acute exacerbation. 4. Hypoglycemic episodes. 5. Diabetes mellitus type 2, uncontrolled. 6. Hypothyroidism. 7. Hyperlipidemia. 8. History of chronic renal failure stage III. 9. History of degenerative joint disease. 10. History of glaucoma. 11. Change in mental status and hallucinations possibly acute metabolic encephalopathy, multifactorial. 12. Hyponatremia. 13. Hypokalemia. 14. Increased creatinine with chronic disease, stage III. 15. Anemia, normocytic anemia of chronic disease. 16. Increased WBC. 17. FULL CODE. RECOMMENDATIONS AND DISCUSSION: In this 86-year-old woman who presented with multiple complex medical issues, we will monitor the patient closely, continue the current medications. Continue symptomatic treatment. I would recommend continue with the bronchodilators and antibiotics and tapering dose of steroids. Further recommendations to follow. Continue symptomatic treatment. Will initiate . Continue to monitor. Further recommendations to follow. MTDD
[2016-07-02 02:26] LABS: Glucose,Whole Blood 196 mg/dL (75-99)
[2016-07-02] MEDS: LEVOTHYROXINE 112 MCG TAB PO SCH (06:13)
[2016-07-02 07:16] LABS: Glucose,Whole Blood 189 mg/dL (75-99)
[2016-07-02] MEDS: IPRATROPIUM-ALBUTEROL 3 ML NEB INHALATION SCH ×4 (08:09→20:20)
[2016-07-02] MEDS: SYMBICORT 160-4.5 MCG INHALER INHALATION SCH ×2 (08:13→20:20)
[2016-07-02] MEDS: PANTOPRAZOLE 40 MG TABLET PO SCH (08:30)
[2016-07-02] MEDS: HEPARIN SODIUM,PORCINE 5,000 UNIT/ML 1 ML VIAL SQ SCH ×2 (08:33→20:37)
[2016-07-02] MEDS: INSULIN LISPRO (humaLOG) 300 UNIT/3 ML VIAL SQ SCH ×4 (08:47→20:35)
[2016-07-02] MEDS: FUROSEMIDE 10 MG/ML 2 ML VIAL IV SCH (08:47)
[2016-07-02 09:49] LABS: Basophils % (A) 0 %; CH 32.9; CHCM 38.3; Eosinophils # (A) 0.1 k/uL (0-0.7); Eosinophils % (A) 0 %; HCT 23.8 % (34.0-46.0); HDW 3.07; HGB 8.9 gm/dL (11.4-16.0); Hyperchromasia Slight; Luc # (Auto) 0.42; Luc % (Auto) 3; Lymphocytes # (A) 2.4 k/uL (1.0-4.8); Lymphocytes % (A) 17 %; MCH 32.2 pg (25.0-35.0); MCHC 37.4 g/dL (31.0-37.0); MCV 86.2 fL (80.0-100.0); Mean Platelet Volume 6.7; Monocytes # (A) 1.2 k/uL (0-1.0); Monocytes % (A) 9 %; Neutrophils # (A) 10.2 k/uL (1.3-7.7); Neutrophils % (A) 71 %; RBC 2.76 m/uL (3.80-5.40); RDW 13.2 % (11.5-15.5); WBC 14.3 k/uL (3.8-10.6); WBC (Perox) 15.15
[2016-07-02] MEDS: ATENOLOL 25 MG TAB PO SCH ×2 (09:51→20:37)
[2016-07-02 10:11] LABS: Calcium 9.5 mg/dL (8.4-10.2); Potassium 4.4 mmol/L (3.5-5.1)
[2016-07-02] MEDS ORDERED: IV FLUID CONTINUATION 800 ML IV ONE (10:51)
--- NOTE | 2016-07-02 11:00 | CT ---
EXAMINATION TYPE: CT Chest wo beatriz Taylor Protocol DATE OF EXAM: 07/02/2016 10:50 AM COMPARISON: CT chest 06/26/2016 HISTORY: Veran chest for bronchoscopy. CT DLP: [address] of the chest was performed with lung and mediastinal window settings submitted. The la ck of contrast limits evaluation of the vascular, mediastinal and parenchymal structures including th e upper abdomen. LUNGS: Peripheral right upper lobe infiltrate persists although appears to be slightly improved. Ther e are interval areas of cavitary focal infiltrate or nodules seen. Infectious process or malignancy n ot excluded. Correlate with bronchoscopic findings. The remainder of the lungs are clear. Hyperinflat ion is compatible with COPD. MEDIASTINUM/ANA M: Thoracic aorta is of normal caliber with limited evaluation given lack of contrast . The heart is not enlarged. No evidence for mediastinal mass. No lymph nodes greater than 1cm. UPPER ABDOMEN: No significant abnormality is seen. OTHER: No significant other abnormality. IMPRESSION: 1. Persistent but slightly improved area of right upper lobe infiltrates with interval cavitation no clark.
[2016-07-02] MEDS ORDERED: PROPOFOL 10 MG/ML 20 ML VIAL IV ONE (12:10)
[2016-07-02] MEDS ORDERED: LIDOCAINE 1% INJ 10MG/ML (20 ML MDV) ONE (12:10)
[2016-07-02] MEDS ORDERED: GLYCOPYRROLATE 0.2 MG/ML 2 ML VIAL ONE (12:10)
[2016-07-02] MEDS ORDERED: ROCURONIUM BROMIDE 10 MG/ML 10 ML VIAL IV ONE (12:10)
[2016-07-02] MEDS ORDERED: PHENYLEPHRINE-0.9% NACL SYG 1 MG/10 ML SYRINGE ONE (12:10)
[2016-07-02] MEDS ORDERED: NEOSTIGMINE 1 MG/ML 10 ML VIAL ONE (12:10)
[2016-07-02] MEDS ORDERED: fentaNYL (PF) 50 MCG/ML 2 ML AMP ONE (12:10)
[2016-07-02] MEDS ORDERED: MIDAZOLAM 2 MG/2 ML VIAL ONE (12:10)
--- NOTE | 2016-07-02 12:13 | P.PN ---
Subjective his is a very pleasant 86-year-old female patient who was admitted from our office for right upper lobe pneumonia. She had been having ongoing issues with shortness of breath, cough congestion phlegm production. She is seen again today in follow-up on the regular medical floor. She is awake and alert in no acute distress. She is still quite dyspneic on minimal exertion. Her follow- up chest x-ray did show some clearing of the right upper lobe looked opacity but not quite cleared completely. Her CAT scan did reveal some adenopathy as well possibly reactive but neoplasm remains in the differential. She is maintaining good O2 saturations in the upper 90s on room air. She is currently afebrile. Hemodynamically stable. On the patient is being seen in follow-up. She had some increased cough and overnight. This morning she is feeling better. A repeat chest x-ray was done and showed a persistence right upper lobe pulmonary infiltrate unchanged from the previous studies. There is a new patchy infiltration of the left lung base. I am more being concerned of an underlying malignancy nontender this patchy infiltrate in the right upper lobe has not changed and the patient has mediastinal lymphadenopathy.\ On 07/02/2016 the patient is being seen in follow-up. I repeated a chest x-ray and as mentioned the abnormalities in the right upper lobe persisted. There was a cavitating infiltration of the right upper lobe, posterior segment in addition to that there was some abnormal mediastinal lymphadenopathy. I discussed the findings with the patient. Based on that, but decided to proceed with a navigational bronchoscopy and obtain biopsies for tissue diagnosis. There is a concern that the patient may have an underlying malignancy/cancer. She is doing well. She has no hemoptysis. Her COPD exacerbation is improved during this current admission and she is much less short of breath on today's evaluation. A consent was signed and the family was informed of the procedure. Objective - Vital Signs Vital signs: Vital Signs Temp 97.4 F L 07/02/16 11:29 Pulse 77 07/02/16 11:29 Resp 16 07/02/16 11:29 BP 162/70 07/02/16 11:29 Pulse Ox 94 L 07/02/16 11:29 Intake & Output 07/01/16 07/02/16 07/02/16 18:59 06:59 18:59 Intake Total 380 700 700 Balance 380 700 700 Weight 71 kg Intake: IV 140 100 700 Sodium Chloride 0.9% 1, 140 100 000 ml @ 20 mls/hr IV . Q24H [facility] Rx#:[id number] Oral 240 600 Other: Voiding Method Toilet Toilet # Voids 1 - Exam The patient appeared well nourished and normally developed. Vital signs as documented. Head exam is unremarkable. No scleral icterus or corneal arcus noted. Neck is without jugular venous distension, thyromegaly, or carotid bruits. Carotid upstrokes are brisk bilaterally. Lungs showing diminished breath sound along with prolongation of expiratory phase of breathing. Cardiac exam reveals the PMI to be normally sized and situated. Rhythm is regular. First and second heart sounds normal. No murmurs, rubs or gallops. Abdominal exam reveals normal bowel sounds, no masses, no organomegaly and no aortic enlargement. Extremities are nonedematous and both femoral and pedal pulses are normal. - Labs CBC & Chem 7: 07/02/16 09:01 07/02/16 09:01 Labs: Abnormal Lab Results - Last 24 Hours (Table) 07/01/16 07/01/16 07/01/16 Range/Units 12:31 16:53 20:55 WBC (3.8-10.6) k/uL RBC (3.80-5.40) m/uL Hgb (11.4-16.0) gm/dL Hct (34.0-46.0) % MCHC (31.0-37.0) g/dL Plt Count (150-450) k/uL Neutrophils # (1.3-7.7) k/uL Monocytes # (0-1.0) k/uL Sodium (137-145) mmol/L Chloride (98-107) mmol/L Carbon Dioxide (22-30) mmol/L BUN (7-17) mg/dL Creatinine (0.52-1.04) mg/dL Glucose (74-99) mg/dL POC Glucose (mg/dL) 219 H 297 H 247 H (75-99) mg/dL 07/02/16 07/02/16 07/02/16 Range/Units 02:03 07:03 09:01 WBC 14.3 H (3.8-10.6) k/uL RBC 2.76 L (3.80-5.40) m/uL Hgb 8.9 L (11.4-16.0) gm/dL Hct 23.8 L (34.0-46.0) % MCHC 37.4 H (31.0-37.0) g/dL Plt Count 486 H (150-450) k/uL Neutrophils # 10.2 H (1.3-7.7) k/uL Monocytes # 1.2 H (0-1.0) k/uL Sodium (137-145) mmol/L Chloride (98-107) mmol/L Carbon Dioxide (22-30) mmol/L BUN (7-17) mg/dL Creatinine (0.52-1.04) mg/dL Glucose (74-99) mg/dL POC Glucose (mg/dL) 196 H 189 H (75-99) mg/dL 07/02/16 Range/Units 09:01 WBC (3.8-10.6) k/uL RBC (3.80-5.40) m/uL Hgb (11.4-16.0) gm/dL Hct (34.0-46.0) % MCHC (31.0-37.0) g/dL Plt Count (150-450) k/uL Neutrophils # (1.3-7.7) k/uL Monocytes # (0-1.0) k/uL Sodium 126 L (137-145) mmol/L Chloride 93 L (98-107) mmol/L Carbon Dioxide 19 L (22-30) mmol/L BUN 48 H (7-17) mg/dL Creatinine 1.44 H (0.52-1.04) mg/dL Glucose 142 H (74-99) mg/dL POC Glucose (mg/dL) (75-99) mg/dL Microbiology - Last 24 Hours (Table) 06/27/16 17:55 Blood Culture - Preliminary Blood No Growth after 96 hours Assessment and Plan Plan: Impression: #1 Right upper lobe pneumonia with partial clearing on today's chest x-ray. On subsequent chest x-ray findings, the right upper lobe pulmonary infiltrate remains unchanged and reviewing the CAT scan again raises the suspicion for an underlying malignancy especially the patient has significant mediastinal lymphadenopathy which could be potentially pathologic. #2 History of congestive heart failure. #3 Hypertension. #4 Hypo-thyroidism. #5 Previous history of methicillin-resistant Staphylococcus aureus infection. #6 Diabetes mellitus. #7 Acute renal failure, improving current creatinine 1.51. #8 Hyponatremia, current sodium 126, rule out SIADH #9 Anemia, current hemoglobin 8.9 PLAN The plan is to proceed with a navigational bronchoscopy. During the procedure transbronchial needle aspirate of the mediastinal lymph nodes and chest bronchial biopsy of the right upper lobe cavitary lesions will be done. The procedure including the potential complication with extended to the patient at length. We will proceed with the procedure this afternoon. Further recommendations are to follow based on the findings.
[2016-07-02] MEDS ORDERED: LACTATED RINGERS 1,000 ML IV ONE (13:03)
[2016-07-02 13:29] LABS: Glucose,Whole Blood 122 mg/dL (75-99)
--- NOTE | 2016-07-02 16:11 | PN ---
Patient is an 86-year-old admitted with right upper lobe pneumonia and CAT scan suspicious for a cavitary lesion, can be from malignancy with mediastinal adenopathy because of which patient did undergo navigation bronchoscopy today because of which patient is a bit confused today and the patient has hyponatremia which was believed secondary to SIADH although patient on Lasix, which I am discontinuing at this point of time. Can be contributing to her hyponatremia and we will obtain urine osmolality ( ) urine random, creatinine and sodium to assess for ( ) and also TSH level to assess for any SIADH-related issue. The patient confusion states is getting better which is probably related to sedation she received for navigation bronch. REVIEW OF SYSTEMS: CARDIOVASCULAR: No chest pain, no orthopnea, no PND, no palpitations. PULMONARY: Denied any shortness of breath. No cough or hemoptysis. GASTROINTESTINAL: No diarrhea, nausea or vomiting. No abdominal pain. Normoactive bowel sounds. NEUROLOGIC: As described in history of present illness. PHYSICAL EXAMINATION: Temperature 97.3, pulse of 76, respiratory rate of 18, blood pressure is 112/73, saturating at 98% on 2 liters of O2 by nasal cannula. GENERAL: Alert and oriented x2. Confusion a bit of confusion is secondary to sedation she received. HEENT: Pupils are round and equally reacting to light. EOMI. No scleral icterus. No conjunctival pallor. Normocephalic, atraumatic. No pharyngeal erythema. No thyromegaly. CARDIOVASCULAR: S1 and S2 present. No murmurs, rubs, or gallops. PULMONARY: Chest is clear to auscultation, no wheezing or crackles. ABDOMEN: Soft, nontender, nondistended, normoactive bowel sounds. No palpable organomegaly. MUSCULOSKELETAL: No joint swelling or deformity. EXTREMITIES: No cyanosis, clubbing, or pedal edema. NEUROLOGICAL: Confusion as mentioned above, no motor focal neurological deficit was appreciated. SKIN: No rashes. LABORATORY DATA: CBC, CMP are abnormal for low leukocytosis with WBC count of 14,800, hemoglobin 8.2, possibly anemia of chronic disease, BUN of 48, creatinine of 1.44 which is actually an improvement, although bicarbonate is low, if it continues to be low, we will obtain lactic acid. Patient is on IV antibiotics for possibility of right upper lobe pneumonia. Her baseline creatinine appears to be around 0.99 a couple of years ago, recent one the best one being 1.29. Patient may have CKD. ASSESSMENT AND PLAN: 1. Acute hypoxic respiratory failure, which is believed secondary to pneumonia and because of the mediastinal adenopathy and the cavitary lesion, there was suspicion of cancer ( ) reactive bronchospasm. 2. Congestive heart failure, chronic diastolic dysfunction. Patient is on the hypovolemic side because of which I am holding off on Lasix. 3. Hyponatremia either related to Lasix or syndrome of inappropriate antidiuretic hormone as mentioned above. Further evaluation as mentioned above. 4. Type 2 diabetes mellitus, uncontrolled blood sugars secondary to systemic steroids. 5. Hypothyroidism. 6. Hyperlipidemia. 7. Chronic kidney disease stage II with acute kidney injury secondary to excessive diuretic therapy. 8. Patient apparently has altered mental status and hallucinations, which were believed to be due to toxic encephalopathy from pneumonia, presently patient is confused, because of medications. 9. Normocytic anemia, anemia of chronic disease, leukocytosis from pneumonia and systemic steroids.
[2016-07-02 16:27] LABS: RBC, Body Fluid 200 /uL
[2016-07-02 17:22] LABS: Glucose,Whole Blood 178 mg/dL (75-99)
[2016-07-02] MEDS: CHOLECALCIFEROL 1,000 UNIT TAB PO SCH (17:27)
[2016-07-02] MEDS: EZETIMIBE 10 MG TAB PO SCH (17:27)
[2016-07-02] MEDS: GEMFIBROZIL 600 MG TAB PO SCH ×2 (17:28→20:37)
[2016-07-02] MEDS: THIAMINE 100 MG TAB PO SCH (17:29)
[2016-07-02] MEDS: predniSONE 20 MG TAB PO SCH (17:29)
[2016-07-02] MEDS: FOLIC ACID 1 MG TAB PO SCH (17:29)
[2016-07-02] MEDS: AZITHROMYCIN 500 MG TAB PO SCH (17:30)
[2016-07-02] MEDS: LOSARTAN 50 MG TAB PO SCH (17:36)
[2016-07-02] MEDS: SODIUM CHLORIDE 0.9% 1,000 ML IV SCH (18:05)
--- NOTE | 2016-07-02 19:07 | PCN ---
DATE OF PROCEDURE: PROCEDURE PERFORMED: Bronchoscopy. PREOPERATIVE DIAGNOSIS: Cavitating right upper lobe infiltrate, persistent. POSTOPERATIVE DIAGNOSES: Copious mucous plugs and purulent respiratory secretions emanating from the right upper lobe, rule out pneumonia. Rule out necrotizing pneumonia. PROCEDURE PERFORMED: 1. ( ) bronchoscopy. 2. Transbronchial needle aspirate of paratracheal lymph nodes. 3. Transbronchial needle aspirate of right upper lobe cavitary infiltrate. 4. Transbronchial biopsy of right upper lobe cavitary infiltrate. 5. Bronchoalveolar lavage of the right upper lobe. This procedure was done under general anesthesia. Note that preoperatively, the patient had ( ) pads placed and a ( ) CT scan of the chest was done. The area of interest in the right upper lobe was marked using the ( ) navigational system. The appropriate navigational guidance was obtained and following that, all this information was uploaded into the navigational system. The patient was brought into the operating room and the patient was intubated and placed on mechanical ventilator. The ( ) intubation was done by SURGEON CHIEF at the bedside. Following this, the ( ) bronchoscope was introduced into the orotracheal tube through and adapter and the procedure was done as the patient was being oxygenated and ventilated. The tip of the ET tube was placed around 3 cm above the mis. Airway inspection was done, and immediately there was evidence of copious amounts of purulent respiratory secretions originating from the right upper lobe. In fact, there were thick mucous plugs that were aspirated and these plugs were dark greenish-yellowish in color, quite thick occluding the working chamber of the flexible bronchoscope. As such, multiple irrigations with saline was done, and all of secretions were suctioned out. Airway inspection was completed and visualized airways included distal trachea, bilateral mainstem bronchi, right upper lobe, right middle, right lower lobe, left upper and left lower lobe bronchi. All of these airways were patent without endobronchial lesions or abnormalities noted. Using a 19-gauge cytology needle, a transbronchial needle aspirate of the right paratracheal lymph node was done and total of 4 passes were obtained. Following that, the bronchoscope was moved to the right upper lobe and transbronchial needle aspirate of the right upper lobe cavitary lesion was obtained and the samples were inspected by pathology at the bedside. I also performed transbronchial biopsies of the right upper lobe. At the end of the procedure, a lavage of the right upper lobe was done where a total of 40 mL of fluid was aspirated and 100 mL of fluid was introduced in the right upper lobe. Therapeutic airway suctioning was done. The airways were clear of any respiratory secretions. The bronchoscope was removed and the patient was left for anesthesia to be extubated. The patient will be extubated here in the operating room and following that, the patient will be transferred to the recovery for further observation. Chest x-ray will be done to rule out pneumothorax. The specimen will be sent for microbial and pathologic analysis: No bedside complications for now.
[2016-07-02 20:03] LABS: Glucose,Whole Blood 121 mg/dL (75-99)
[2016-07-02] MEDS: ASPIRIN 81 MG CHEW PO SCH (20:37)
[2016-07-02] MEDS: MULTIVITAMINS, THERA 1 EACH TAB PO SCH (20:37)
[2016-07-03 02:43] LABS: Glucose,Whole Blood 235 mg/dL (75-99)
[2016-07-03] MEDS: LEVOTHYROXINE 112 MCG TAB PO SCH (06:14)
[2016-07-03 07:34] LABS: Glucose,Whole Blood 149 mg/dL (75-99)
[2016-07-03] MEDS ORDERED: metFORMIN 500 MG TAB PO SCH (07:45)
[2016-07-03 08:17] VITALS: BP 114/71; RESP 20; TEMP 98
[2016-07-03] MEDS: INSULIN LISPRO (humaLOG) 300 UNIT/3 ML VIAL SQ SCH ×2 (08:25→12:29)
[2016-07-03] MEDS: EZETIMIBE 10 MG TAB PO SCH (08:28)
[2016-07-03] MEDS: GEMFIBROZIL 600 MG TAB PO SCH (08:28)
[2016-07-03] MEDS: predniSONE 20 MG TAB PO SCH (08:28)
[2016-07-03] MEDS: CHOLECALCIFEROL 1,000 UNIT TAB PO SCH (08:28)
[2016-07-03] MEDS: ATENOLOL 25 MG TAB PO SCH (08:28)
[2016-07-03] MEDS: HEPARIN SODIUM,PORCINE 5,000 UNIT/ML 1 ML VIAL SQ SCH (08:29)
[2016-07-03] MEDS: PANTOPRAZOLE 40 MG TABLET PO SCH (08:29)
[2016-07-03 09:05] LABS: CH 32.6; CHCM 37.1; HCT 26.3 % (34.0-46.0); HDW 3.03; HGB 9.7 gm/dL (11.4-16.0); MCH 32.6 pg (25.0-35.0); MCHC 36.9 g/dL (31.0-37.0); MCV 88.4 fL (80.0-100.0); Mean Platelet Volume 6.3; RBC 2.97 m/uL (3.80-5.40); RDW 13.4 % (11.5-15.5); WBC 9.2 k/uL (3.8-10.6)
[2016-07-03 09:18] LABS: Calcium 9.3 mg/dL (8.4-10.2); Potassium 4.7 mmol/L (3.5-5.1)
[2016-07-03] MEDS: IPRATROPIUM-ALBUTEROL 3 ML NEB INHALATION SCH ×2 (10:00→11:20)
[2016-07-03] MEDS: SYMBICORT 160-4.5 MCG INHALER INHALATION SCH (10:00)
[2016-07-03 11:35] LABS: Glucose,Whole Blood 145 mg/dL (75-99)
[2016-07-03 11:41] VITALS: PULSE 76
[2016-07-03] MEDS: FOLIC ACID 1 MG TAB PO SCH (12:28)
[2016-07-03] MEDS: REPAGLINIDE 1 MG TAB PO SCH (12:28)
[2016-07-03] MEDS: THIAMINE 100 MG TAB PO SCH (13:04)
--- NOTE | 2016-07-03 14:38 | P.PN ---
Subjective Principal diagnosis: Right upper lobe patchy nodular infiltrate/pneumonia This is a very pleasant 86-year-old female patient who was admitted from our office for right upper lobe pneumonia. She had been having ongoing issues with shortness of breath, cough congestion phlegm production. She is seen again today in follow-up on the regular medical floor. She is awake and alert in no acute distress. She is still quite dyspneic on minimal exertion. Her follow- up chest x-ray did show some clearing of the right upper lobe looked opacity but not quite cleared completely. Her CAT scan did reveal some adenopathy as well possibly reactive but neoplasm remains in the differential. She is maintaining good O2 saturations in the upper 90s on room air. She is currently afebrile. Hemodynamically stable. On the patient is being seen in follow-up. She had some increased cough and overnight. This morning she is feeling better. A repeat chest x-ray was done and showed a persistence right upper lobe pulmonary infiltrate unchanged from the previous studies. There is a new patchy infiltration of the left lung base. I am more being concerned of an underlying malignancy nontender this patchy infiltrate in the right upper lobe has not changed and the patient has mediastinal lymphadenopathy.\ On 07/02/2016 the patient is being seen in follow-up. I repeated a chest x-ray and as mentioned the abnormalities in the right upper lobe persisted. There was a cavitating infiltration of the right upper lobe, posterior segment in addition to that there was some abnormal mediastinal lymphadenopathy. I discussed the findings with the patient. Based on that, but decided to proceed with a navigational bronchoscopy and obtain biopsies for tissue diagnosis. There is a concern that the patient may have an underlying malignancy/cancer. She is doing well. She has no hemoptysis. Her COPD exacerbation is improved during this current admission and she is much less short of breath on today's evaluation. A consent was signed and the family was informed of the procedure. The patient is seen again today 07/03/2016 in follow-up on the regular medical floor. She is awake and alert in no acute distress. She did undergo bronchoscopy with BAL and biopsy yesterday. There is a significant amount of thick purulent secretions. She is doing much better today. No pulmonary complaints. She is anxious to go home. Objective - Vital Signs Vital signs: Vital Signs Temp 98 F 07/03/16 07:00 Pulse 76 07/03/16 11:36 Resp 20 07/03/16 08:00 BP 114/71 07/03/16 07:00 Pulse Ox 97 07/03/16 07:00 Intake & Output 07/02/16 07/03/16 07/03/16 18:59 06:59 18:59 Intake Total 1160 200 Balance 1160 200 Weight 68 kg Intake: IV 1160 100 Sodium Chloride 0.9% 1, 160 100 000 ml @ 20 mls/hr IV . Q24H [facility] Rx#:[id number] Oral 100 Other: Voiding Method Toilet Toilet Toilet # Voids 1 - Exam GENERAL EXAM: Alert, active, comfortable in no apparent distress. HEAD: Normocephalic. EYES: Normal reaction of pupils, equal size. NOSE: Clear with pink turbinates. THROAT: No erythema or exudates. NECK: No masses, no JVD. CHEST: No chest wall deformity. LUNGS: Equal air entry with few scattered rhonchi. CVS: S1 and S2 normal with no audible murmurs, regular rhythm. ABDOMEN: No hepatosplenomegaly, normal bowel sounds, no guarding or rigidity. SPINE: No scoliosis or deformity SKIN: No rashes CENTRAL NERVOUS SYSTEM: No focal deficits, tone is normal in all 4 extremities. Extremities: There is no significant peripheral edema. No clubbing, no cyanosis. Peripheral pulses are intact. - Labs CBC & Chem 7: 07/03/16 08:31 07/03/16 08:31 Labs: Abnormal Lab Results - Last 24 Hours (Table) 07/02/16 07/02/16 07/02/16 Range/Units 09:01 17:20 20:01 RBC (3.80-5.40) m/uL Hgb (11.4-16.0) gm/dL Hct (34.0-46.0) % Plt Count (150-450) k/uL Sodium (137-145) mmol/L Carbon Dioxide (22-30) mmol/L BUN (7-17) mg/dL Creatinine (0.52-1.04) mg/dL Glucose (74-99) mg/dL POC Glucose (mg/dL) 178 H 121 H (75-99) mg/dL Osmolality 275 L (280-301) mosm/kg 07/03/16 07/03/16 07/03/16 Range/Units 02:31 07:31 08:31 RBC 2.97 L (3.80-5.40) m/uL Hgb 9.7 L (11.4-16.0) gm/dL Hct 26.3 L (34.0-46.0) % Plt Count 513 H (150-450) k/uL Sodium (137-145) mmol/L Carbon Dioxide (22-30) mmol/L BUN (7-17) mg/dL Creatinine (0.52-1.04) mg/dL Glucose (74-99) mg/dL POC Glucose (mg/dL) 235 H 149 H (75-99) mg/dL Osmolality (280-301) mosm/kg 07/03/16 07/03/16 Range/Units 08:31 11:31 RBC (3.80-5.40) m/uL Hgb (11.4-16.0) gm/dL Hct (34.0-46.0) % Plt Count (150-450) k/uL Sodium 133 L (137-145) mmol/L Carbon Dioxide 18 L (22-30) mmol/L BUN 46 H (7-17) mg/dL Creatinine 1.46 H (0.52-1.04) mg/dL Glucose 165 H (74-99) mg/dL POC Glucose (mg/dL) 145 H (75-99) mg/dL Osmolality (280-301) mosm/kg Microbiology - Last 24 Hours (Table) 07/02/16 13:00 Gram Stain - Preliminary Bronchial Washings - Right Bronchial Washings Culture - Preliminary Gram Neg Bacilli 07/02/16 13:00 Acid Fast Bacilli Culture - Preliminary Bronchial Washings - Right 06/27/16 17:55 Blood Culture - Preliminary Blood No Growth after 120 hours 07/02/16 13:00 Fungal Culture - Preliminary Bronchial Washings - Right Assessment and Plan Plan: Impression: #1 Right upper lobe pneumonia with partial clearing on today's chest x-ray. Status post bronchoscopy with BAL and biopsy. #2 History of congestive heart failure. #3 Hypertension. #4 Hypo-thyroidism. #5 Previous history of methicillin-resistant Staphylococcus aureus infection. #6 Diabetes mellitus. #7 Acute renal failure, improving current creatinine 1.51. #8 Hyponatremia, current sodium 124. #9 Anemia, current hemoglobin 8.8. Plan: The patient was seen and evaluated by Dr. Ornelas. He is cleared for discharge from the pulmonary standpoint. She'll follow-up in our office in 1-2 weeks' time. We'll repeat a chest x-ray them. We'll have results of the pathology and cultures by then as well. Her granddaughter both encouraged however to call sooner with any recurrence of symptoms or any other questions or concerns.
--- NOTE | 2016-07-04 11:16 | DS ---
DATE OF ADMISSION: 06/27/2016 DATE OF DISCHARGE: 07/03/2016 An 86-year-old admitted and was treated for right upper lobe pneumonia and CAT scan was suspicious for cavitary lesion for which patient underwent biopsy. The results of which will be discussed as an outpatient in ( ) Clinic. Patient was on Lasix, which led her to have hyponatremia. After discontinuation of Lasix, her symptoms did improve, although patient has some diastolic dysfunction. Anyways, in spite of diastolic dysfunction, I have to discontinue the Lasix because of concerns of the hyponatremia, which improved significantly after discontinuation of Lasix. The suspicion of SIADH is low. I will also go ahead and discontinue losartan as most of her kidney function I believe is still acute renal failure, which is expected to improve with these measures. My suspicion is low for SIADH. REVIEW OF SYSTEMS: CARDIOVASCULAR: No chest pain, no orthopnea, no PND, no palpitations. PULMONARY: Denied any shortness of breath. No cough or hemoptysis. GASTROINTESTINAL: No diarrhea, nausea or vomiting. No abdominal pain. Normoactive bowel sounds. NEUROLOGIC: No headaches, no weakness, no numbness. Medications were reviewed. PHYSICAL EXAMINATION: VITAL SIGNS: Temperature 98.9, pulse is 76, respiratory rate of 20, blood pressure is 114/79, saturating at 97% on room air. GENERAL: The patient is alert and oriented x3, not in any acute distress. Well developed, well nourished. HEENT: Pupils are round and equally reacting to light. EOMI. No scleral icterus. No conjunctival pallor. Normocephalic, atraumatic. No pharyngeal erythema. No thyromegaly. CARDIOVASCULAR: S1 and S2 present. No murmurs, rubs, or gallops. PULMONARY: Chest is clear to auscultation, no wheezing or crackles. ABDOMEN: Soft, nontender, nondistended, normoactive bowel sounds. No palpable organomegaly. MUSCULOSKELETAL: No joint swelling or deformity. EXTREMITIES: No cyanosis, clubbing, or pedal edema. NEUROLOGICAL: Gross neurological examination did not reveal any focal deficits. SKIN: No rashes. FINAL DIAGNOSES: 1. Acute hypoxic respiratory failure believed to be secondary to pneumonia. The patient does have mediastinal adenopathy and cavitary lesion. Patient had a very active bronchospasm, which improved at this point of time and patient underwent navigation bronchoscopy, results of which are pending. 2. Congestive heart failure with chronic diastolic dysfunction. Patient is actually on the hypovolemic side. I will discontinue Lasix as well as losartan and patient's kidney function needs to be retested as an outpatient. 3. Hyponatremia, hypovolemic hyponatremia from excessive diuretic therapy. 4. Type 2 diabetes mellitus. 5. Hypothyroidism. 6. Hyperlipidemia. 7. Chronic kidney disease stage II to III. Patient mostly has DEXTER. 8. Patient apparently had hallucinations and altered mental status, which are completely resolved at this point of time. Probably related to toxic encephalopathy from pneumonia. 9. Normocytic anemia, anemia of chronic disease. Patient will follow with Dr. Ornelas in one week. Dr. Leonardo Chisholm in 3 to 7 days. Activity as tolerated. Patient already has an appointment Dr. Ornelas on Thursday. Discharge diet is cardiac and ADA 1800 calorie diet. Patient will be discharged home today. I spent greater than 35 minutes on total discharge process.
== END 2016-07-03 16:07 | disposition home or self-care (01) | DRG 166 ==
LOC: 5MS5E 15:09
PROVIDERS: ADMIT Hospitalist; ATTEND Hospitalist
PROC: 0B9C8ZX Drainage of Right Upper Lung Lobe, Via Natural or Artificial Opening Endoscopic, Diagnostic (ICD-10-PCS; principal; 2016-07-02 11:30)
PROC: 07B74ZX Excision of Thorax Lymphatic, Percutaneous Endoscopic Approach, Diagnostic (ICD-10-PCS; 2016-07-02 11:30)
PROC: 0BBC8ZX Excision of Right Upper Lung Lobe, Via Natural or Artificial Opening Endoscopic, Diagnostic (ICD-10-PCS; 2016-07-02 11:30)
DX: J18.9 Pneumonia, unspecified organism (principal); G92 Toxic encephalopathy; J96.01 Acute respiratory failure with hypoxia; N17.9 Acute kidney failure, unspecified; T17.890A Other foreign object in other parts of respiratory tract causing asphyxiation, initial encounter; I13.0 Hypertensive heart and chronic kidney disease with heart failure and stage 1 through stage 4 chronic kidney disease, or unspecified chronic kidney disease; I50.32 Chronic diastolic (congestive) heart failure; E87.1 Hypo-osmolality and hyponatremia; E11.22 Type 2 diabetes mellitus with diabetic chronic kidney disease; E11.649 Type 2 diabetes mellitus with hypoglycemia without coma; D63.8 Anemia in other chronic diseases classified elsewhere; E03.9 Hypothyroidism, unspecified; E11.65 Type 2 diabetes mellitus with hyperglycemia; E78.5 Hyperlipidemia, unspecified; E86.1 Hypovolemia; E87.6 Hypokalemia; H40.9 Unspecified glaucoma; J98.01 Acute bronchospasm; N18.3 Chronic kidney disease, stage 3 (moderate); T38.0X5A Adverse effect of glucocorticoids and synthetic analogues, initial encounter; M19.90 Unspecified osteoarthritis, unspecified site; R59.0 Localized enlarged lymph nodes; T50.2X5A Adverse effect of carbonic-anhydrase inhibitors, benzothiadiazides and other diuretics, initial encounter; Z86.14 Personal history of Methicillin resistant Staphylococcus aureus infection; Z79.84 Long term (current) use of oral hypoglycemic drugs; Z79.899 Other long term (current) drug therapy; Z79.82 Long term (current) use of aspirin; Z85.3 Personal history of malignant neoplasm of breast
CPT/HCPCS: 31624; 31625; 31627; 31629; 71010; 71020; 71250; 80048; 80053; 81003; 82570; 83036; 83735; 83880; 83930; 83935; 84100; 84300; 84443; 85025; 85027; 85652; 86140; 87040; 87070; 87077; 87102; 87116; 87186; 87205; 87206; 87252; 87496; 87498; 87502; 87529; 87798; 88108; 88173; 88305; 89050; 93005; 94640; 94760

== ENCOUNTER → 2017-04-02 | Outpatient (CLI) | payer MEDICARE ==
[2017-04-02 08:59] LABS: Albumin 4.3 g/dL (3.5-5.0); Calcium 10.1 mg/dL (8.4-10.2); Potassium 4.5 mmol/L (3.5-5.1); Total Bilirubin 0.4 mg/dL (0.2-1.3); Total Protein 7.5 g/dL (6.3-8.2)
[2017-04-02 09:10] LABS: Basophils # (A) 0.1 k/uL (0-0.2); Basophils % (A) 1 %; Eosinophils # (A) 1.2 k/uL (0-0.7); Eosinophils % (A) 15 %; HCT 34.5 % (34.0-46.0); HGB 11.2 gm/dL (11.4-16.0); Lymphocytes # (A) 2.8 k/uL (1.0-4.8); Lymphocytes % (A) 32 %; MCH 29.3 pg (25.0-35.0); MCHC 32.3 g/dL (31.0-37.0); MCV 90.6 fL (80.0-100.0); Mean Platelet Volume 6.9; Monocytes # (A) 0.4 k/uL (0-1.0); Monocytes % (A) 5 %; Neutrophils # (A) 3.8 k/uL (1.3-7.7); Neutrophils % (A) 45 %; Platelet Count 334 k/uL (150-450); RBC 3.81 m/uL (3.80-5.40); RDW 12.9 % (11.5-15.5); WBC 8.5 k/uL (3.8-10.6)
[2017-04-02 09:14] LABS: T4, Free (Free Thyroxine) 1.59 ng/dL (0.78-2.19)
[2017-04-02 09:21] LABS: Appearance,Urine Cloudy (Clear); Bacteria,Urine Rare /hpf; Bilirubin,Urine Negative (Negative); Blood,Urine Negative (Negative); Color,Urine Yellow; Glucose,Urine (UA) Negative (Negative); Hyaline Casts,Urine 3 /lpf (0-2); Ketones,Urine Negative (Negative); Leukocyte Esterase,Urine Moderate (Negative); Mucus,Urine Rare /hpf; Nitrite,Urine Negative (Negative); PH, Urine 5.5 (5.0-8.0); Protein,Urine Trace (Negative); RBC,Urine 1 /hpf (0-5); Squamous Epithelial Cell,Urine 3 /hpf (0-4); Urobilinogen,Urine <2.0 mg/dL (<2.0); WBC,Urine 16 /hpf (0-5)
[2017-04-02 15:11] LABS: Iron Saturation 23.24 (12.00-45.00)
[2017-04-02 17:15] LABS: Hemoglobin A1C 6.9 % (4.0-6.0)
== END ==
LOC: LABWHC1 08:04
PROVIDERS: ATTEND Internal Medicine Critical Care Medicine
DX: I10 Essential (primary) hypertension (principal); E78.5 Hyperlipidemia, unspecified; E03.9 Hypothyroidism, unspecified; E11.9 Type 2 diabetes mellitus without complications
CPT/HCPCS: 36415; 80053; 80061; 81001; 82043; 82550; 82570; 82728; 83036; 83540; 83550; 84439; 84443; 85025

== ENCOUNTER 2017-08-08 18:21 | Emergency (ER) | payer OTHER, MEDICARE ==
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
--- NOTE | 2017-08-08 19:51 | CT ---
EXAMINATION TYPE: CT brain [facility] DATE OF EXAM: 08/08/2017 COMPARISON: NONE HISTORY: Patient complains of headache and weakness. CT DLP: 1566 mGycm Automated exposure control for dose reduction was used. TECHNIQUE: CT scan of the head and cervical spine are performed without contrast. FINDINGS: There is no acute intracranial hemorrhage, mass effect, or midline shift identified. The ventricles and sulci are within normal limits in size. The globes are intact and the visualized sin uses are clear. Cervical spine is visualized in its entirety from C1 through upper thoracic levels and demonstrates s atisfactory alignment without evidence of acute fracture or dislocation. Prevertebral soft tissue ap pears within normal limits. Markedly advanced multilevel cervical spondylosis changes are noted The C 1-C2 articulation is unremarkable. IMPRESSION: 1. There is no acute fracture or dislocation evident in the cervical spine. 2. No acute intracranial hemorrhage, mass effect, or midline shift is seen.
[2017-08-08 20:06] VITALS: BP 204/92; PULSE 77; RESP 18; TEMP 97.8
== END 2017-08-08 20:09 | disposition home or self-care (01) ==
LOC: EC 18:21
DX: S13.4XXA Sprain of ligaments of cervical spine, initial encounter (principal); I10 Essential (primary) hypertension; E07.9 Disorder of thyroid, unspecified; Z79.82 Long term (current) use of aspirin; Z79.899 Other long term (current) drug therapy; Z88.8 Allergy status to other drugs, medicaments and biological substances; Z86.14 Personal history of Methicillin resistant Staphylococcus aureus infection; V47.5XXA Car driver injured in collision with fixed or stationary object in traffic accident, initial encounter; Y92.410 Unspecified street and highway as the place of occurrence of the external cause
CPT/HCPCS: 70450; 72125; 99283

== ENCOUNTER 2017-09-07 08:54 | Emergency (ER) | payer MEDICARE ==
[2017-09-07 09:01] VITALS: RESP 16
[2017-09-07] MEDS ORDERED: SODIUM CHLORIDE 0.9% 500 ML IV STA (09:34)
--- NOTE | 2017-09-07 09:53 | ED ---
Nausea/Vomiting/Diarrhea HPI - General Chief complaint: Nausea/Vomiting/Diarrhea Stated complaint: NVD Time Seen by Provider: 09/07/17 09:10 Source: patient, family Mode of arrival: wheelchair Limitations: no limitations - History of Present Illness Initial comments: This is a 87-year-old female past medical history of diastolic heart failure, type 2 diabetes, and hypertension who presents today for chief complaint of diarrhea, nausea, vomiting 3 days. Patient states that Thursday morning she began having loose stools 3-4 times a day denying any associated symptoms. She cannot recall eating anything that would have caused his consuming her normal diet. Yesterday afternoon around 3 PM she had one episode of vomiting after eating half a bowl of cereal, but has not had any additional episodes. Patient states that this episode of vomiting she has not had anything to eat in fear of having additional episodes. She has been drinking water and has been tolerating that well. Patient denies additional symptoms including abdominal pain, nausea, hematochezia, melena, fever, chills, sick contacts, recent antibiotic use, recent weight loss. Patient denies any shortness of breath, chest pain, back pain, numbness or tingling, dysuria or hematuria, constipation , headaches or visual changes, or any other complaints. - Related Data Home Medications Medication Instructions Recorded Confirmed Aspirin EC [Ecotrin Low Dose] 81 mg PO HS 06/17/14 06/27/16 Atenolol [Tenormin] 25 mg PO BID 06/17/14 06/27/16 Gemfibrozil [Lopid] 600 mg PO BID 06/17/14 06/27/16 Levothyroxine Sodium [Synthroid] 112 mcg PO DAILY 06/17/14 06/27/16 Multivitamins, Thera [Multivitamin 1 tab PO HS 06/17/14 06/27/16 (formulary)] Ezetimibe [Zetia] 10 mg PO DAILY 02/01/16 06/27/16 Albuterol Sulfate [Proair Hfa] 1 - 2 puff INHALATION RT-Q4H PRN 02/05/16 Cholecalciferol [Vitamin D3] 1,000 unit PO DAILY 06/27/16 06/27/16 Previous Rx's Medication Instructions Recorded Albuterol Nebulized [Ventolin 2.5 mg INHALATION Q6H PRN #120 nebu 07/03/16 Nebulized] Cefuroxime Axetil [Ceftin] 500 mg PO BID #10 tab 07/03/16 Repaglinide [Prandin] 2 mg PO DAILY #30 tablet 07/03/16 predniSONE 10 mg PO DAILY #15 tab 07/03/16 Diphenoxylate HCl/Atropine 1 - 2 tab PO QID PRN 3 Days #24 tab 09/07/17 [Lomotil 2.5-0.025 mg Tablet] Allergies Allergy/AdvReac Type Severity Reaction Status Date / Time nadolol [From Corgard] Allergy Nausea & Verified 09/07/17 09:21 Vomiting atorvastatin calcium AdvReac MUSCLE PAIN Verified 09/07/17 09:21 [From Lipitor] Review of Systems ROS Statement: Those systems with pertinent positive or pertinent negative responses have been documented in the HPI. ROS Other: All systems not noted in ROS Statement are negative. Constitutional: Denies: fever, chills, weakness, weight change ENT: Denies: throat pain Respiratory: Denies: dyspnea Cardiovascular: Denies: chest pain, palpitations, edema Endocrine: Denies: heat or cold intolerance, polyuria Gastrointestinal: Reports: as per HPI, vomiting, diarrhea. Denies: abdominal pain, nausea, constipation, hematemesis, melena, hematochezia Genitourinary: Denies: urgency, dysuria, frequency, hematuria Skin: Denies: rash Neurological: Denies: headache Past Medical History Past Medical History: Heart Failure, Diabetes Mellitus, Hypertension, Thyroid Disorder History of Any Multi-Drug Resistant Organisms: MRSA Date of last positivie culture/infection: 08/2008 MDRO Source:: axilla Past Surgical History: Breast Surgery, Ear Surgery Additional Past Surgical History / Comment(s): MRSA boil removed left axilla, cysts removed from left breast, cyst removed from forehead, cataracts, right shoulder surgery Past Anesthesia/Blood Transfusion Reactions: No Reported Reaction, Family Hisory of Malignant Hyperthermia Past Psychological History: No Psychological Hx Reported Smoking Status: Never smoker Past Alcohol Use History: None Reported Past Drug Use History: None Reported - Past Family History Mother Family Medical History: No Reported History General Exam - General Exam Comments Initial Comments: General: The patient is awake and alert, in no distress, and does not appear acutely ill. Eye: Pupils are equal, round and reactive to light, extra-ocular movements are intact. No nystagmus. There is normal conjunctiva bilaterally. No signs of icterus. Ears, nose, mouth and throat: There are moist mucous membranes and no oral lesions. Neck: The neck is supple, there is no tenderness or JVD. Cardiovascular: There is a regular rate and rhythm. No murmur, rub or gallop is appreciated. Respiratory: Lungs are clear to auscultation, respirations are non-labored, breath sounds are equal. No wheezes, stridor, rales, or rhonchi. Gastrointestinal: Soft, non-distended, non-tender abdomen without masses or organomegaly noted. There is no rebound or guarding present. No CVA tenderness. Bowel sounds are unremarkable. No signs of peritoneal irritation negative psoas and obturator.] Musculoskeletal: Normal ROM, no tenderness. Strength 5/5. Sensation intact. Pulses equal bilaterally 2+. Neurological: A&O x 3. CN II-XII intact, There are no obvious motor or sensory deficits. Coordination appears grossly intact. Speech is normal. Skin: Skin is warm and dry and no rashes or lesions are noted. Psychiatric: Cooperative, appropriate mood & affect, normal judgment. Limitations: no limitations General appearance: alert, in no apparent distress Head exam: Present: atraumatic Eye exam: Present: normal appearance Course Vital Signs 09/07/17 09/07/17 08:57 11:38 Temperature 97.9 F 97.2 F L Pulse Rate 111 H 79 Respiratory 16 16 Rate Blood Pressure 161/75 167/79 O2 Sat by Pulse 96 97 Oximetry Medical Decision Making - Medical Decision Making This is a 87-year-old female past medical history of diastolic heart failure, type 2 diabetes, and hypertension who presents today for chief complaint of diarrhea, nausea, vomiting 3 days. Patient states that Thursday morning she began having loose stools 3-4 times a day denying any associated symptoms. She cannot recall eating anything that would have caused his consuming her normal diet. Yesterday afternoon around 3 PM she had one episode of vomiting after eating half a bowl of cereal, but has not had any additional episodes. Patient states that since this episode of vomiting she has not had anything to eat in fear of having additional episodes. She has been drinking water and has been tolerating that well. Patient denies additional symptoms including abdominal pain, nausea, hematochezia, melena, fever, chills, sick contacts, recent antibiotic use, recent weight loss. Patient denies any shortness of breath, chest pain, back pain, numbness or tingling, dysuria or hematuria, constipation , headaches or visual changes, or any other complaints. Physical examination of the abdomen revealed a soft, non-distended, non-tender abdomen without masses or organomegaly noted. There is no tenderness to percussion, light or deep palpation in all 4 quadrants. There is no rebound or guarding present. No CVA tenderness. Bowel sounds are unremarkable. No signs of peritoneal irritation. Patient was given a 500 mL bolus of normal saline. A CBC, CMP, amylase, lipase and lactic acid were obtained which returned within normal limits. Creatinine 1.70 upon looking on previous visits, patient average creatinine around 1.40. Urinalysis returned and does not appear to be a clean- catch patient currently denies any urinary symptoms including dysuria, frequency , urgency or changes in urinary odor. In addition abdominal x-rays were obtained the findings suggest enteritis. Upon initial presentation patient's heart rate was elevated 111bpm repeat HR i obtained myself 75bpm. Patient had no episodes of nausea, vomiting, or diarrhea during her visit. The case was discussed with Dr. Valadez. Patient stable for discharge and instructed to follow- up with her primary care in 1-2 days in regards to her creatinine and diarrhea. In addition patient was instructed to return to emergency department if she experiences changes in symptoms or new and more worsening symptoms . She was prescribed Lomotil and instructed to take only as needed if she experiences subsequent diarrhea not to exceed 6 pills a day. She was also educated on the side effects of Lomotil which include constipation. Patient and daughter were pleased with this plan and agreed. Patient was discharged in stable condition. - Lab Data Result diagrams: 09/07/17 09:48 09/07/17 09:48 Lab Results 09/07/17 09/07/17 09/07/17 Range/Units 09:48 09:48 09:48 WBC 9.2 (3.8-10.6) k/uL RBC 3.82 (3.80-5.40) m/uL Hgb 11.9 (11.4-16.0) gm/dL Hct 34.4 (34.0-46.0) % MCV 90.0 (80.0-100.0) fL MCH 31.1 (25.0-35.0) pg MCHC 34.6 (31.0-37.0) g/dL RDW 13.3 (11.5-15.5) % Plt Count 343 (150-450) k/uL Neutrophils % 72 % Lymphocytes % 13 % Monocytes % 6 % Eosinophils % 7 % Basophils % 1 % Neutrophils # 6.6 (1.3-7.7) k/uL Lymphocytes # 1.2 (1.0-4.8) k/uL Monocytes # 0.6 (0-1.0) k/uL Eosinophils # 0.7 (0-0.7) k/uL Basophils # 0.0 (0-0.2) k/uL Sodium 140 (137-145) mmol/L Potassium 4.1 (3.5-5.1) mmol/L Chloride 106 (98-107) mmol/L Carbon Dioxide 22 (22-30) mmol/L Anion Gap 12 mmol/L BUN 39 H (7-17) mg/dL Creatinine 1.70 H (0.52-1.04) mg/dL Est GFR (CKD-EPI)AfAm 31 (>60 ml/min/1.73 sqM) Est GFR (CKD-EPI)NonAf 27 (>60 ml/min/1.73 sqM) Glucose 151 H (74-99) mg/dL Plasma Lactic Acid Arnie 0.9 (0.7-2.0) mmol/L Calcium 9.8 (8.4-10.2) mg/dL Total Bilirubin 0.6 (0.2-1.3) mg/dL AST 18 (14-36) U/L ALT 27 (9-52) U/L Alkaline Phosphatase 54 (38-126) U/L Total Protein 7.5 (6.3-8.2) g/dL Albumin 4.3 (3.5-5.0) g/dL Amylase 45 (30-110) U/L Lipase 96 (23-300) U/L Urine Color Urine Appearance (Clear) Urine pH (5.0-8.0) Ur Specific [place] (1.001-1.035) Urine Protein (Negative) Urine Glucose (UA) (Negative) Urine Ketones (Negative) Urine Blood (Negative) Urine Nitrite (Negative) Urine Bilirubin (Negative) Urine Urobilinogen (<2.0) mg/dL Ur Leukocyte Esterase (Negative) Urine RBC (0-5) /hpf Urine WBC (0-5) /hpf Ur Squamous Epith Cells (0-4) /hpf Amorphous Sediment (None) /hpf Hyaline Casts (0-2) /lpf Urine Mucus (None) /hpf 09/07/17 Range/Units 09:55 WBC (3.8-10.6) k/uL RBC (3.80-5.40) m/uL Hgb (11.4-16.0) gm/dL Hct (34.0-46.0) % MCV (80.0-100.0) fL MCH (25.0-35.0) pg MCHC (31.0-37.0) g/dL RDW (11.5-15.5) % Plt Count (150-450) k/uL Neutrophils % % Lymphocytes % % Monocytes % % Eosinophils % % Basophils % % Neutrophils # (1.3-7.7) k/uL Lymphocytes # (1.0-4.8) k/uL Monocytes # (0-1.0) k/uL Eosinophils # (0-0.7) k/uL Basophils # (0-0.2) k/uL Sodium (137-145) mmol/L Potassium (3.5-5.1) mmol/L Chloride (98-107) mmol/L Carbon Dioxide (22-30) mmol/L Anion Gap mmol/L BUN (7-17) mg/dL Creatinine (0.52-1.04) mg/dL Est GFR (CKD-EPI)AfAm (>60 ml/min/1.73 sqM) Est GFR (CKD-EPI)NonAf (>60 ml/min/1.73 sqM) Glucose (74-99) mg/dL Plasma Lactic Acid Arnie (0.7-2.0) mmol/L Calcium (8.4-10.2) mg/dL Total Bilirubin (0.2-1.3) mg/dL AST (14-36) U/L ALT (9-52) U/L Alkaline Phosphatase (38-126) U/L Total Protein (6.3-8.2) g/dL Albumin (3.5-5.0) g/dL Amylase (30-110) U/L Lipase (23-300) U/L Urine Color Dark Yellow Urine Appearance Cloudy H (Clear) Urine pH 5.5 (5.0-8.0) Ur Specific [place] 1.022 (1.001-1.035) Urine Protein 1+ H (Negative) Urine Glucose (UA) Negative (Negative) Urine Ketones Trace H (Negative) Urine Blood Negative (Negative) Urine Nitrite Negative (Negative) Urine Bilirubin Negative (Negative) Urine Urobilinogen 2.0 (<2.0) mg/dL Ur Leukocyte Esterase Moderate H (Negative) Urine RBC 3 (0-5) /hpf Urine WBC 10 H (0-5) /hpf Ur Squamous Epith Cells 5 H (0-4) /hpf Amorphous Sediment Rare H (None) /hpf Hyaline Casts 22 H (0-2) /lpf Urine Mucus Rare H (None) /hpf Disposition Clinical Impression: Vomiting and diarrhea Disposition: HOME SELF-CARE Condition: Good Instructions: Acute Nausea and Vomiting (ED), Acute Diarrhea (ED) Additional Instructions: Please use medication as discussed-only take medication if diarrhea occurs MAX 8 tablets. Please follow-up with family doctor in the next 2 days of symptoms have not improved. Please return to emergency room if the symptoms increase or worsen or for any other concerns. Prescriptions: Diphenoxylate HCl/Atropine [Lomotil 2.5-0.025 mg Tablet] 1 - 2 tab PO QID PRN 3 Days #24 tab PRN Reason: Diarrhea Is patient prescribed a controlled substance at d/c from ED?: No Referrals: Mando Ornelas MD [Primary Care Provider] - 1-2 days Time of Disposition: 12:00
[2017-09-07 10:04] LABS: Basophils % (A) 1 %; Eosinophils # (A) 0.7 k/uL (0-0.7); Eosinophils % (A) 7 %; HCT 34.4 % (34.0-46.0); HGB 11.9 gm/dL (11.4-16.0); Lymphocytes # (A) 1.2 k/uL (1.0-4.8); Lymphocytes % (A) 13 %; MCH 31.1 pg (25.0-35.0); MCHC 34.6 g/dL (31.0-37.0); Mean Platelet Volume 7.2; Monocytes # (A) 0.6 k/uL (0-1.0); Monocytes % (A) 6 %; Neutrophils # (A) 6.6 k/uL (1.3-7.7); Neutrophils % (A) 72 %; Platelet Count 343 k/uL (150-450); RBC 3.82 m/uL (3.80-5.40); RDW 13.3 % (11.5-15.5); WBC 9.2 k/uL (3.8-10.6)
--- NOTE | 2017-09-07 10:08 | XR ---
Abdomen HISTORY: Vomiting and diarrhea Frontal view of the abdomen on 2 images. There are air-fluid levels without bowel distention. Lung bases are clear. No pneumoperitoneum. Calci fication present at the level of the splenic hilum measures approximately 14 mm may represent a small aneurysm. Vascular calcifications also present within the pelvis. There may be calcified fibroid pre sent. Degenerative disc changes in the visualized spine. IMPRESSION: Findings suggest enteritis. Additional findings above.
[2017-09-07 10:13] LABS: Albumin 4.3 g/dL (3.5-5.0); Calcium 9.8 mg/dL (8.4-10.2); Potassium 4.1 mmol/L (3.5-5.1); Total Bilirubin 0.6 mg/dL (0.2-1.3); Total Protein 7.5 g/dL (6.3-8.2)
[2017-09-07 10:22] LABS: Amorphous Sediment,Urine Rare /hpf; Appearance,Urine Cloudy (Clear); Bilirubin,Urine Negative (Negative); Blood,Urine Negative (Negative); Color,Urine Dark Yellow; Glucose,Urine (UA) Negative (Negative); Hyaline Casts,Urine 22 /lpf (0-2); Ketones,Urine Trace (Negative); Leukocyte Esterase,Urine Moderate (Negative); Mucus,Urine Rare /hpf; Nitrite,Urine Negative (Negative); PH, Urine 5.5 (5.0-8.0); Protein,Urine 1+ (Negative); RBC,Urine 3 /hpf (0-5); Specific Gravity,Urine 1.022 (1.001-1.035); Squamous Epithelial Cell,Urine 5 /hpf (0-4); WBC,Urine 10 /hpf (0-5)
[2017-09-07 11:39] VITALS: BP 167/79; PULSE 79; TEMP 97.2
== END 2017-09-07 11:48 | disposition home or self-care (01) ==
LOC: EC 08:54
DX: R19.7 Diarrhea, unspecified (principal); R11.10 Vomiting, unspecified; I11.0 Hypertensive heart disease with heart failure; I50.30 Unspecified diastolic (congestive) heart failure; E07.9 Disorder of thyroid, unspecified; Z79.82 Long term (current) use of aspirin; Z79.899 Other long term (current) drug therapy; Z88.8 Allergy status to other drugs, medicaments and biological substances; Z86.14 Personal history of Methicillin resistant Staphylococcus aureus infection
CPT/HCPCS: 36415; 74018; 80053; 81001; 82150; 83605; 83690; 85025; 96360; 99284

== ENCOUNTER → 2018-06-16 | Outpatient (CLI) | payer MEDICARE ==
[2018-06-16 08:52] LABS: Basophils # (A) 0.1 k/uL (0-0.2); Basophils % (A) 1 %; Eosinophils # (A) 1.3 k/uL (0-0.7); Eosinophils % (A) 16 %; HCT 31.5 % (34.0-46.0); Lymphocytes # (A) 2.5 k/uL (1.0-4.8); Lymphocytes % (A) 30 %; MCH 30.9 pg (25.0-35.0); MCV 88.3 fL (80.0-100.0); Mean Platelet Volume 7.1; Monocytes # (A) 0.4 k/uL (0-1.0); Monocytes % (A) 5 %; Neutrophils # (A) 3.8 k/uL (1.3-7.7); Neutrophils % (A) 46 %; Platelet Count 383 k/uL (150-450); RBC 3.57 m/uL (3.80-5.40); RDW 13.2 % (11.5-15.5); WBC 8.2 k/uL (3.8-10.6)
[2018-06-16 16:41] LABS: Albumin 4.3 g/dL (3.80-4.90); Albumin/Globulin Ratio 1.72 (1.60-3.17); Anion Gap 10.8 mmol/L (4.00-12.00); Calcium 9.8 mg/dL (8.7-10.3); Carbon Dioxide 28.2 mmol/L (21.6-31.8); Globulin 2.5 g/dL (1.6-3.3); Potassium 4.2 mmol/L (3.5-5.5); Total Bilirubin 0.3 mg/dL (0.2-1.2); Total Protein 6.8 g/dL (6.2-8.2)
[2018-06-16 16:48] LABS: T4, Free (Free Thyroxine) 1.2 ng/dL (0.80-1.80)
[2018-06-16 18:47] LABS: Hemoglobin A1C 7.1 % (4.0-6.0)
== END | disposition home or self-care (01) ==
LOC: LABWHC1 06-15 10:41
PROVIDERS: ATTEND Internal Medicine Critical Care Medicine
DX: E11.9 Type 2 diabetes mellitus without complications (principal)
CPT/HCPCS: 36415; 80053; 80061; 82550; 83036; 84439; 84443; 85025

== ENCOUNTER → 2019-04-26 | Outpatient (CLI) | payer MEDICARE ==
[2019-04-26 17:52] LABS: African American GFR (CKD) 35.9 (60.0-200.0); Albumin 4.4 g/dL (3.80-4.90); Albumin/Globulin Ratio 1.57 (1.60-3.17); Calcium 10.1 mg/dL (8.7-10.3); Chol/HDL Ratio 4.93; Globulin 2.8 g/dL (1.6-3.3); LDL Cholesterol,Calculated 157.4 mg/dL (0.0-131.0); Potassium 4.3 mmol/L (3.5-5.5); Total Bilirubin 0.4 mg/dL (0.2-1.2); Total Protein 7.2 g/dL (6.2-8.2); VLDL Calculation 19.6 mg/dL (5.00-40.00)
[2019-04-26 18:13] LABS: Urine Creatinine 58.1 mg/dL
== END ==
LOC: LABWHC1 07:27
PROVIDERS: ATTEND Internal Medicine Endocrinology, Diabetes & Metabolism
DX: E11.65 Type 2 diabetes mellitus with hyperglycemia (principal)
CPT/HCPCS: 36415; 80053; 80061; 82043; 82570; 83036; 84443

== ENCOUNTER → 2020-05-18 | Outpatient (CLI) | payer MEDICARE ==
[2020-05-18 10:12] LABS: Appearance,Urine Clear (Clear); Bilirubin,Urine Negative (Negative); Blood,Urine Negative (Negative); Color,Urine Light Yellow; Glucose,Urine (UA) Negative (Negative); Ketones,Urine Negative (Negative); Leukocyte Esterase,Urine Trace (Negative); Mucus,Urine Rare /hpf; Nitrite,Urine Negative (Negative); PH, Urine 5.5 (5.0-8.0); Protein,Urine Trace (Negative); Specific Gravity,Urine 1.009 (1.001-1.035); Squamous Epithelial Cell,Urine <1 /hpf (0-4); Urobilinogen,Urine <2.0 mg/dL (<2.0); WBC,Urine 5 /hpf (0-5)
[2020-05-18 15:21] LABS: Basophils # (A) 0.13 X 10*3/uL (0.00-0.10); Basophils % (A) 1.7 %; Eosinophils # (A) 0.76 X 10*3/uL (0.04-0.35); Eosinophils % (A) 10.2 %; HGB 10.8 g/dL (12.0-15.0); Lymphocytes # (A) 2.41 X 10*3/uL (0.90-5.00); Lymphocytes % (A) 32.4 %; MCH 30.5 pg (27.0-32.0); MCHC 32.7 g/dL (32.0-37.0); MCV 93.2 fL (80.0-97.0); Mean Platelet Volume 9.9 fL (9.5-12.2); Monocytes # (A) 0.59 X 10*3/uL (0.20-1.00); Monocytes % (A) 7.9 %; Neutrophils # (A) 3.53 X 10*3/uL (1.80-7.70); Neutrophils % (A) 47.7 %; Platelet Count 293 X 10*3/uL (140-440); RBC 3.54 X 10*6/uL (4.10-5.20); RDW 12.4 % (11.5-14.5); WBC 7.43 X 10*3/uL (4.50-10.00)
[2020-05-18 18:26] LABS: Hemoglobin A1C 6.2 % (4.0-6.0)
[2020-05-18 19:26] LABS: Potassium 4.5 mmol/L (3.5-5.5)
[2020-05-18 22:04] LABS: T4, Free (Free Thyroxine) 1.3 ng/dL (0.80-1.80)
[2020-05-18 22:12] LABS: Albumin 4.5 g/dL (3.80-4.90); Albumin/Globulin Ratio 1.55 (1.60-3.17); Anion Gap 11.8 mmol/L (4.00-12.00); BUN/Creat Ratio 19.38 Ratio (12.00-20.00); Calcium 9.9 mg/dL (8.7-10.3); Carbon Dioxide 20.2 mmol/L (21.6-31.8); Chol/HDL Ratio 5.89; Globulin 2.9 g/dL (1.6-3.3); LDL Cholesterol,Calculated 157.6 mg/dL (0.0-131.0); Non-African American GFR(CKD) 28.5 (60.0-200.0); Total Bilirubin 0.2 mg/dL (0.3-1.2); Total Protein 7.4 g/dL (6.2-8.2); VLDL Calculation 18.4 mg/dL (5.00-40.00)
[2020-05-19 07:39] LABS: Urine Creatinine 51.4 mg/dL
== END | disposition home or self-care (01) ==
LOC: LABWHC1 09:24
PROVIDERS: ATTEND Internal Medicine Critical Care Medicine
DX: E11.8 Type 2 diabetes mellitus with unspecified complications (principal); E78.5 Hyperlipidemia, unspecified; E03.9 Hypothyroidism, unspecified
CPT/HCPCS: 36415; 80053; 80061; 81001; 82043; 82570; 83036; 84439; 84443; 85025

== ENCOUNTER 2020-07-12 07:35 | Observation (INO) | payer MEDICARE ==
--- NOTE | 2020-07-12 08:19 | ED ---
General Adult HPI - General Chief complaint: Urogenital Stated complaint: Poss UTI Time Seen by Provider: 07/12/20 07:57 Source: patient, family, RN notes reviewed Mode of arrival: ambulatory Limitations: no limitations - History of Present Illness Initial comments: 89-year-old female presents emergency Department with family for possible urinary tract infection. Patient had a few bouts of confusion and hallucinations and sent in by PCP for urinalysis as they could not get her into the office. Patient has no history of dementia. Patient has no complaints herself. Family states that she's been altered. There is no generalized weakness or focal weakness. Neck went abdominal pain no fevers or chills no cough or URI symptoms. - Related Data Home Medications Medication Instructions Recorded Confirmed Gemfibrozil [Lopid] 600 mg PO BID 06/17/14 07/12/20 Losartan [Cozaar] 50 mg PO DAILY 09/07/17 07/12/20 Ameri-Cell 1 cap PO DAILY 07/12/20 07/12/20 Hoodia [place] 1 cap PO DAILY 07/12/20 07/12/20 Levothyroxine Sodium [Synthroid] 137 mcg PO DAILY 07/12/20 07/12/20 Melatonin 5 mg PO HS 07/12/20 07/12/20 Super Fruit 1 cap PO DAILY 07/12/20 07/12/20 Ubidecarenone [Co Q-10] 200 mg PO DAILY 07/12/20 07/12/20 Allergies Allergy/AdvReac Type Severity Reaction Status Date / Time nadolol [From Corgard] Allergy Nausea & Verified 07/12/20 10:29 Vomiting atorvastatin calcium AdvReac MUSCLE PAIN Verified 07/12/20 10:29 [From Lipitor] Review of Systems ROS Statement: Those systems with pertinent positive or pertinent negative responses have been documented in the HPI. ROS Other: All systems not noted in ROS Statement are negative. Past Medical History Past Medical History: Heart Failure, Diabetes Mellitus, Hypertension, Thyroid Disorder History of Any Multi-Drug Resistant Organisms: MRSA Date of last positivie culture/infection: 08/2008 MDRO Source:: axilla Past Surgical History: Breast Surgery, Ear Surgery Additional Past Surgical History / Comment(s): MRSA boil removed left axilla, cysts removed from left breast, cyst removed from forehead, cataracts, right shoulder surgery Past Anesthesia/Blood Transfusion Reactions: No Reported Reaction, Family Hisory of Malignant Hyperthermia Past Psychological History: No Psychological Hx Reported Smoking Status: Never smoker Past Alcohol Use History: None Reported Past Drug Use History: None Reported - Past Family History Mother Family Medical History: No Reported History General Exam Limitations: no limitations General appearance: alert, in no apparent distress Head exam: Present: atraumatic, normocephalic, normal inspection Eye exam: Present: normal appearance, PERRL, EOMI. Absent: scleral icterus, conjunctival injection, periorbital swelling Neck exam: Present: normal inspection, full ROM. Absent: tenderness, meningismus, lymphadenopathy Respiratory exam: Present: normal lung sounds bilaterally. Absent: respiratory distress, wheezes, rales, rhonchi, stridor Cardiovascular Exam: Present: regular rate, normal rhythm, normal heart sounds. Absent: systolic murmur, diastolic murmur, rubs, gallop, clicks GI/Abdominal exam: Present: soft, normal bowel sounds. Absent: distended, tenderness, guarding, rebound, rigid Neurological exam: Present: alert, oriented X3 Course Vital Signs 07/12/20 07/12/20 07:45 09:34 Temperature 97.8 F 97.8 F Pulse Rate 108 H 108 H Respiratory 18 18 Rate Blood Pressure 171/77 173/92 O2 Sat by Pulse 98 98 Oximetry Medical Decision Making - Medical Decision Making 89-year-old presented for bouts of hallucinations, confusion. Patient has no history of dementia workup is negative this time. Patient will be admitted for further workup and evaluation. - Lab Data Result diagrams: 07/12/20 08:56 07/12/20 08:56 Lab Results 07/12/20 07/12/20 07/12/20 Range/Units 08:13 08:56 08:56 WBC 8.4 (3.8-10.6) k/uL RBC 3.36 L (3.80-5.40) m/uL Hgb 10.6 L (11.4-16.0) gm/dL Hct 29.8 L (34.0-46.0) % MCV 88.7 (80.0-100.0) fL MCH 31.6 (25.0-35.0) pg MCHC 35.6 (31.0-37.0) g/dL RDW 14.5 (11.5-15.5) % Plt Count 346 (150-450) k/uL MPV 6.7 Neutrophils % 46 % Lymphocytes % 31 % Monocytes % 6 % Eosinophils % 14 % Basophils % 1 % Neutrophils # 3.9 (1.3-7.7) k/uL Lymphocytes # 2.6 (1.0-4.8) k/uL Monocytes # 0.5 (0-1.0) k/uL Eosinophils # 1.2 H (0-0.7) k/uL Basophils # 0.1 (0-0.2) k/uL Sodium 140 (137-145) mmol/L Potassium 3.8 (3.5-5.1) mmol/L Chloride 111 H (98-107) mmol/L Carbon Dioxide 20 L (22-30) mmol/L Anion Gap 9 mmol/L BUN 30 H (7-17) mg/dL Creatinine 1.56 H (0.52-1.04) mg/dL Est GFR (CKD-EPI)AfAm 34 (>60 ml/min/1.73 sqM) Est GFR (CKD-EPI)NonAf 30 (>60 ml/min/1.73 sqM) Glucose 104 H (74-99) mg/dL Plasma Lactic Acid Arnie (0.7-2.0) mmol/L Calcium 9.5 (8.4-10.2) mg/dL Magnesium 1.9 (1.6-2.3) mg/dL Total Bilirubin 0.3 (0.2-1.3) mg/dL AST 36 (14-36) U/L ALT 16 (4-34) U/L Alkaline Phosphatase 72 (38-126) U/L Ammonia (<30) umol/L Total Protein 7.2 (6.3-8.2) g/dL Albumin 3.9 (3.5-5.0) g/dL Urine Color Light Yellow Urine Appearance Clear (Clear) Urine pH 5.0 (5.0-8.0) Ur Specific [place] 1.006 (1.001-1.035) Urine Protein Negative (Negative) Urine Glucose (UA) Negative (Negative) Urine Ketones Negative (Negative) Urine Blood Negative (Negative) Urine Nitrite Negative (Negative) Urine Bilirubin Negative (Negative) Urine Urobilinogen <2.0 (<2.0) mg/dL Ur Leukocyte Esterase Negative (Negative) 05/06/21 Range/Units 08:56 WBC (3.8-10.6) k/uL RBC (3.80-5.40) m/uL Hgb (11.4-16.0) gm/dL Hct (34.0-46.0) % MCV (80.0-100.0) fL MCH (25.0-35.0) pg MCHC (31.0-37.0) g/dL RDW (11.5-15.5) % Plt Count (150-450) k/uL MPV Neutrophils % % Lymphocytes % % Monocytes % % Eosinophils % % Basophils % % Neutrophils # (1.3-7.7) k/uL Lymphocytes # (1.0-4.8) k/uL Monocytes # (0-1.0) k/uL Eosinophils # (0-0.7) k/uL Basophils # (0-0.2) k/uL Sodium (137-145) mmol/L Potassium (3.5-5.1) mmol/L Chloride (98-107) mmol/L Carbon Dioxide (22-30) mmol/L Anion Gap mmol/L BUN (7-17) mg/dL Creatinine (0.52-1.04) mg/dL Est GFR (CKD-EPI)AfAm (>60 ml/min/1.73 sqM) Est GFR (CKD-EPI)NonAf (>60 ml/min/1.73 sqM) Glucose (74-99) mg/dL Plasma Lactic Acid Arnie 0.8 (0.7-2.0) mmol/L Calcium (8.4-10.2) mg/dL Magnesium (1.6-2.3) mg/dL Total Bilirubin (0.2-1.3) mg/dL AST (14-36) U/L ALT (4-34) U/L Alkaline Phosphatase (38-126) U/L Ammonia <9 (<30) umol/L Total Protein (6.3-8.2) g/dL Albumin (3.5-5.0) g/dL Urine Color Urine Appearance (Clear) Urine pH (5.0-8.0) Ur Specific [place] (1.001-1.035) Urine Protein (Negative) Urine Glucose (UA) (Negative) Urine Ketones (Negative) Urine Blood (Negative) Urine Nitrite (Negative) Urine Bilirubin (Negative) Urine Urobilinogen (<2.0) mg/dL Ur Leukocyte Esterase (Negative) Disposition Clinical Impression: Altered mental status Disposition: ADMITTED IP TO THIS HOSP Condition: Fair Referrals: Mando Ornelas MD [Primary Care Provider] - 1-2 days
[2020-07-12 08:35] LABS: Appearance,Urine Clear (Clear); Bilirubin,Urine Negative (Negative); Blood,Urine Negative (Negative); Color,Urine Light Yellow; Glucose,Urine (UA) Negative (Negative); Ketones,Urine Negative (Negative); Leukocyte Esterase,Urine Negative (Negative); Nitrite,Urine Negative (Negative); Protein,Urine Negative (Negative); Specific Gravity,Urine 1.006 (1.001-1.035); Urobilinogen,Urine <2.0 mg/dL (<2.0)
[2020-07-12 09:18] LABS: Basophils # (A) 0.1 k/uL (0-0.2); Basophils % (A) 1 %; Eosinophils # (A) 1.2 k/uL (0-0.7); Eosinophils % (A) 14 %; HCT 29.8 % (34.0-46.0); HGB 10.6 gm/dL (11.4-16.0); Lymphocytes # (A) 2.6 k/uL (1.0-4.8); Lymphocytes % (A) 31 %; MCH 31.6 pg (25.0-35.0); MCHC 35.6 g/dL (31.0-37.0); MCV 88.7 fL (80.0-100.0); Mean Platelet Volume 6.7; Monocytes # (A) 0.5 k/uL (0-1.0); Monocytes % (A) 6 %; Neutrophils # (A) 3.9 k/uL (1.3-7.7); Neutrophils % (A) 46 %; Platelet Count 346 k/uL (150-450); RBC 3.36 m/uL (3.80-5.40); RDW 14.5 % (11.5-15.5); WBC 8.4 k/uL (3.8-10.6)
--- NOTE | 2020-07-12 09:24 | CT ---
EXAMINATION TYPE: CT brain wo con DATE OF EXAM: 07/12/2020 HISTORY: Confusion and altered mental status CT DLP: 1099.4 mGycm. Automated Exposure Control for Dose Reduction was Utilized. TECHNIQUE: CT scan of the head is performed without contrast. COMPARISON: CT brain August 08, 2017. FINDINGS: There is no acute intracranial hemorrhage or midline shift identified. There is mild-to-m oderate diffuse ventricular and sulcal prominence consistent with diffuse age-related cerebral atroph y. There is [id number] low-attenuation in the periventricular white matter consistent with chr onic small vessel ischemic change. Hyperostosis frontalis. Calcified lenses bilaterally. New patchy opacification left sphenoid sinus Paranasal sinuses are otherwise clear. IMPRESSION: No acute intracranial hemorrhage or midline shift. There is mild to moderate diffuse ag e-related cerebral atrophy and chronic small vessel ischemic change redemonstrated. No significant c hange from prior. Possible new mild acute left sphenoid sinus disease.
[2020-07-12 09:26] LABS: Albumin 3.9 g/dL (3.5-5.0); Calcium 9.5 mg/dL (8.4-10.2); Magnesium 1.9 mg/dL (1.6-2.3); Potassium 3.8 mmol/L (3.5-5.1); Total Bilirubin 0.3 mg/dL (0.2-1.3); Total Protein 7.2 g/dL (6.3-8.2)
--- NOTE | 2020-07-12 09:32 | XR ---
EXAMINATION TYPE: XR chest 2V DATE OF EXAM: 07/12/2020 COMPARISON: Chest x-ray July 01, 2016 HISTORY: Weakness and dizziness. TECHNIQUE: Frontal and lateral views of the chest are obtained. FINDINGS: There is chronic parenchymal changes without suspicious focal air space opacity, pleural e ffusion, or pneumothorax seen. The cardiac silhouette size is stable and within normal limits. The osseous structures are intact. IMPRESSION: No acute cardiopulmonary process.
[2020-07-12 10:26] LABS: Lactic Acid, Venous 0.8 mmol/L (0.7-2.0)
[2020-07-12] MEDS ORDERED: LOSARTAN 50 MG TAB PO STA (10:48)
[2020-07-12] MEDS ORDERED: LEVOTHYROXINE 137 MCG TAB PO STA (10:49)
[2020-07-12] MEDS ORDERED: NALOXONE 0.4 MG/ML 1 ML VIAL IV PRN (11:09)
[2020-07-12] MEDS ORDERED: ACETAMINOPHEN TAB 325 MG TAB PO PRN (11:09)
--- NOTE | 2020-07-12 14:28 | P.HPIM ---
History of Present Illness 89-year-old female was brought in by family members because of altered mental status and hallucinations occasionally on and off symptoms. Patient doesn't have any fever chills doesn't have any signs or symptoms of infection patient doesn't have pneumonia on the chest x-ray urease essentially within normal limits. Patient is alert oriented 2 does have significant hearing problems because of which history is limited. CT of the head showed chronic microvascular ischemic changes. Patient doesn't have any cough dysuria denied a ny nausea vomiting. Patient creatinine is around 1.5 baseline appears to be on that. Patient is ALLERGIC to atorvastatin because of which patient is on fenofibrate Review of Systems Except for those mentioned above rest of the review of systems unable to obtain at this time because of her significant hearing problems although patient memory appears to be fairly well. Past Medical History Past Medical History: Heart Failure, Diabetes Mellitus, Hyperlipidemia, Hypertension, Osteoarthritis (OA), Pneumonia, Renal Disease, Thyroid Disorder Additional Past Medical History / Comment(s): NIDDM type II/diet controlled now, hyponatremia, R upper lobe pneumonia, CKD stage 11111, anemia, arthritis bilateral hands/shoulders, occasionally knees with "give out", currently L great toenail coming off, 2008 MRSA L axillae with sepsis History of Any Multi-Drug Resistant Organisms: MRSA Date of last positivie culture/infection: 08/2008 MDRO Source:: axilla Past Surgical History: Breast Surgery, Ear Surgery Additional Past Surgical History / Comment(s): MRSA boil removed left axilla, cysts removed from left breast, cyst removed from forehead, cataracts, right shoulder surgery for rotator cuff, 2016 bronchoscopy/biopsy/BAL, 1991 ear surgery/patch graft-think it was R ear. Past Anesthesia/Blood Transfusion Reactions: No Reported Reaction, Family Hisory of Malignant Hyperthermia Past Psychological History: No Psychological Hx Reported Additional Psychological History / Comment(s): Pt has her walt and son-in-law and grand walt residing with her. She uses a cane or walker to ambulate. She performs her own ADLs and manages her own medications. She no longer drives, family takes her to appts. Smoking Status: Never smoker Past Alcohol Use History: None Reported Past Drug Use History: None Reported - Past Family History Father Family Medical History: No Reported History Additional Family Medical History / Comment(s): Father was healthy Mother Family Medical History: No Reported History Additional Family Medical History / Comment(s): Mother lived to be 91 yrs old. Medications and Allergies Home Medications Medication Instructions Recorded Confirmed Type Gemfibrozil [Lopid] 600 mg PO BID 06/17/14 07/12/20 History Losartan [Cozaar] 50 mg PO DAILY 09/07/17 07/12/20 History Ameri-Cell 1 cap PO DAILY 07/12/20 07/12/20 History Hoodia [place] 1 cap PO DAILY 07/12/20 07/12/20 History Levothyroxine Sodium [Synthroid] 137 mcg PO DAILY 07/12/20 07/12/20 History Melatonin 5 mg PO HS 07/12/20 07/12/20 History Super Fruit 1 cap PO DAILY 07/12/20 07/12/20 History Ubidecarenone [Co Q-10] 200 mg PO DAILY 07/12/20 07/12/20 History Allergies Allergy/AdvReac Type Severity Reaction Status Date / Time nadolol [From Corgard] Allergy Nausea & Verified 07/12/20 10:29 Vomiting atorvastatin calcium AdvReac MUSCLE PAIN Verified 07/12/20 10:29 [From Lipitor] Physical Exam Vitals: Vital Signs Temp Pulse Pulse Resp BP BP Pulse Ox 07/12/20 12:30 97.5 F L 74 18 170/72 99 07/12/20 12:04 97.8 F 108 H 18 173/92 98 07/12/20 09:34 97.8 F 108 H 18 173/92 98 07/12/20 07:45 97.8 F 108 H 18 171/77 98 Intake and Output 07/11/20 07/12/20 07/12/20 22:59 06:59 14:59 Other: Weight 58.967 kg PHYSICAL EXAMINATION: GENERAL: The patient is alert and oriented x2, not in any acute distress. Well developed, well nourished. HEENT: Pupils are round and equally reacting to light. EOMI. No scleral icterus. No conjunctival pallor. Normocephalic, atraumatic. No pharyngeal erythema. No thyromegaly. CARDIOVASCULAR: S1 and S2 present. No murmurs, rubs, or gallops. PULMONARY: Chest is clear to auscultation, no wheezing or crackles. ABDOMEN: Soft, nontender, nondistended, normoactive bowel sounds. No palpable organomegaly. MUSCULOSKELETAL: No joint swelling or deformity. EXTREMITIES: No cyanosis, clubbing, or pedal edema. NEUROLOGICAL: Gross neurological examination did not reveal any focal deficits. Does have generalized weakness and uses a cane for walking SKIN: No rashes. Results CBC & Chem 7: 07/12/20 08:56 07/12/20 08:56 Labs: Abnormal Lab Results - Last 24 Hours (Table) 07/12/20 07/12/20 Range/Units 08:56 08:56 RBC 3.36 L (3.80-5.40) m/uL Hgb 10.6 L (11.4-16.0) gm/dL Hct 29.8 L (34.0-46.0) % Eosinophils # 1.2 H (0-0.7) k/uL Chloride 111 H (98-107) mmol/L Carbon Dioxide 20 L (22-30) mmol/L BUN 30 H (7-17) mg/dL Creatinine 1.56 H (0.52-1.04) mg/dL Glucose 104 H (74-99) mg/dL Thrombosis Risk Factor Assmnt - Choose All That Apply Any of the Below Risk Factors Present?: Yes Other Risk Factors: Yes Each Risk Factor Represents 3 Points: Age 75 years or older Other congenital or acquired thrombophilia - If yes, enter type in comment: No Thrombosis Risk Factor Assessment Total Risk Factor Score: 3 Thrombosis Risk Factor Assessment Level: Moderate Risk Assessment and Plan Plan: -Episodes of confusion: Secondary to dementia patient doesn't appear to have delirium patient has on and off episodes of Lucid and on lucid phases which is typical of dementia. Patient appears to aspirin dementia patient will be started on aspirin continue with fenofibrate. Neurology was consulted. We will obtain mini cognitive testing. -Hypertension -Chronic kidney disease stage III patient had a competent of acute renal failure patient will be started on IV fluids and the will check the basic metabolic profile tomorrow -Generalized weakness physical therapy and occupational therapy evaluation DVT prophylaxis sub cutaneous heparin
[2020-07-12] MEDS: ASPIRIN 81 MG PO SCH (15:37)
[2020-07-12] MEDS: SODIUM CHLORIDE 0.9% 1,000 ML IV SCH (15:37)
[2020-07-12] MEDS: FENOFIBRATE 160 MG TAB PO SCH (15:37)
[2020-07-12 17:15] LABS: Glucose,Whole Blood 168 mg/dL (75-99)
[2020-07-12 19:17] VITALS: RESP 14
[2020-07-12 20:43] LABS: Glucose,Whole Blood 119 mg/dL (75-99)
[2020-07-12] MEDS ORDERED: MELATONIN 5 MG TABLET PO SCH (21:00)
--- NOTE | 2020-07-12 21:49 | P.CNNES ---
History of Present Illness Consult date: 07/12/20 Requesting physician: Óscar Amaya Reason for Consult: Mental status History of Present Illness: Patient is a 89-year-old female came to the hospital today at 7:35 AM for possible UTI. Patient had a few bouts of confusion and hallucinations and was sent by PCP for UA. No history of dementia. Patient's granddaughter, who lives with the patient was present today. She states that patient went to her son's house in [place] on 07/04/2020. She was supposed to stay there for one week. In the late afternoon on 07/10/2020 patient developed some mental status change, when she she was noted to be sitting in the spare room where she never sits, with her back pack ready, to leave, although there was no such plans for her to go anywhere. She became paranoid, states that her daughter stole the piano from her home. She even threatened to call the police. She did not know that she was in the house of he r son. Patient's granddaughter went in and brought her back blind stitch machine operator yesterday at 12:30 AM. Patient continued to have hallucinations, thinking children were in the background playing with the clown. She was seeing some floating things in her vision, which was actually light reflecting from the fish tank. She was seeing some things, which she called "wiggly jiggly things crawling on her". She at times would be more lucid but other times becomes more confused, continued to be paranoid about the piano. She was thinking that her granddaughter was her daughter. Patient's daughter finally brought her to the hospital this morning. Patient has no issues with the memory functions prior to this incident. Her granddaughter has noticed that sometimes if the granddaughter would place certain things somewhere else, patient would believe that she herself had moved those things and has misplaced it. Otherwise she is very good with the names of all family members. Not noticed to be having any disorientation prior to this incident. No strokelike symptoms like slurred speech facial droop, focal numbness tingling weakness balance issues or visual problems besides above. Vital signs shows blood pressure 171/77, pulse rate 108, temperature 97.8. Blood test shows WBC 8.4 hemoglobin 10.6, platelets 346. Electrolytes are normal, BUN 30, creatinine 1.56. Hepatic panel normal. Ammonia is normal. UA negative. Banks virus PCR negative. Hemoglobin A1c 6.21 05/18/2020. TSH was low 0.020 on 05/18/2020 with free T4 normal 1.30. Patient's CT head showed no acute intracranial findings. Mild to moderate diffuse age-related cerebral atrophy and chronic small vessel ischemic change redemonstrated. No significant change from prior. Possible new mild acute left sphenoid sinus disease. Chest x-ray showed no acute cardio Thacker process. Patient takes gemfibrozil, Cozaar, CoQ10, melatonin and Synthroid and some vitamins. Review of Systems As per HPI. All other review of systems completely unremarkable. Denies any chest pain shortness of breath wheezing or cough. Denies any double vision, loss of vision, hearing loss, hoarseness sore throat dysphagia. Denies any abdominal pain nausea vomiting diarrhea. Denies any loss of control of urine. No major concerns with the balance. Past Medical History Past Medical History: Heart Failure, Diabetes Mellitus, Hyperlipidemia, Hypertension, Osteoarthritis (OA), Pneumonia, Renal Disease, Thyroid Disorder Additional Past Medical History / Comment(s): NIDDM type II/diet controlled now, hyponatremia, R upper lobe pneumonia, CKD stage 111, anemia, arthritis bilateral hands/shoulders, occasionally knees with "give out", currently L great toenail coming off, 2008 MRSA L axillae with sepsis History of Any Multi-Drug Resistant Organisms: MRSA Date of last positivie culture/infection: 08/2008 MDRO Source:: axilla Past Surgical History: Breast Surgery, Ear Surgery Additional Past Surgical History / Comment(s): MRSA boil removed left axilla, cysts removed from left breast, cyst removed from forehead, cataracts, right shoulder surgery for rotator cuff, 2017 bronchoscopy/biopsy/BAL, 1991 ear surgery/patch graft-think it was R ear. Past Anesthesia/Blood Transfusion Reactions: No Reported Reaction, Family Hisory of Malignant Hyperthermia Past Psychological History: No Psychological Hx Reported Additional Psychological History / Comment(s): Pt has her walt and son-in-law and grand walt residing with her. She uses a cane or walker to ambulate. She performs her own ADLs and manages her own medications. She no longer drives, family takes her to [employer]. Smoking Status: Never smoker Past Alcohol Use History: None Reported Past Drug Use History: None Reported - Past Family History Father Family Medical History: No Reported History Additional Family Medical History / Comment(s): Father was healthy Mother Family Medical History: No Reported History Additional Family Medical History / Comment(s): Mother lived to be 91 yrs old. Medications and Allergies Home Medications Medication Instructions Recorded Confirmed Type Gemfibrozil [Lopid] 600 mg PO BID 06/17/14 07/12/20 History Losartan [Cozaar] 50 mg PO DAILY 09/07/17 07/12/20 History Ameri-Cell 1 cap PO DAILY 07/12/20 07/12/20 History Hoodia [place] 1 cap PO DAILY 07/12/20 07/12/20 History Levothyroxine Sodium [Synthroid] 137 mcg PO DAILY 07/12/20 07/12/20 History Melatonin 5 mg PO HS 07/12/20 07/12/20 History Super Fruit 1 cap PO DAILY 07/12/20 07/12/20 History Ubidecarenone [Co Q-10] 200 mg PO DAILY 07/12/20 07/12/20 History Allergies Allergy/AdvReac Type Severity Reaction Status Date / Time nadolol [From Corgard] Allergy Nausea & Verified 07/12/20 10:29 Vomiting atorvastatin calcium AdvReac MUSCLE PAIN Verified 07/12/20 10:29 [From Lipitor] Physical Examination - Vital Signs Vital Signs: Vital Signs Temp Pulse Pulse Resp BP BP Pulse Ox 07/12/20 12:30 97.5 F L 74 18 170/72 99 07/12/20 12:04 97.8 F 108 H 18 173/92 98 07/12/20 09:34 97.8 F 108 H 18 173/92 98 07/12/20 07:45 97.8 F 108 H 18 171/77 98 Intake and Output 07/11/20 07/12/20 07/12/20 22:59 06:59 14:59 Other: Weight 58.967 kg Patient is an elderly female, very pleasant, but appears somewhat easily distractible, hyper alert, but in no acute distress. Patient is alert awake. She knows that she is in [facility], in the hospital but does not know name of the hospital on which county she [place] in. She could not tell what month or year is it. But she states that it is a summer month. She knows her date of . Does not know name of the current president, although she was given 4 choices including Mr. Hendrickson and she could not pick the correct president out of the 4 choices. Speech and language functions are normal. Attention, concentration and fund of knowledge is limited. On cranial examination, pupils are round and reacting to light, visual cruz are full on confrontation, with no neglect on double simultaneous stimulation. Her extraocular muscles are intact with no nystagmus. Face is symmetric, tongue protrudes to the midline. Palatal elevation and sensation normal, hearing and shoulder shrug normal, facial sensation normal. Shoulder shrug normal. On muscle strength testing, there is no pronator drift and the strength is normal in arms and legs distally and proximally. Deep tendon reflexes are 1+ to 2+ and symmetric, plantars downgoing. Sensory to touch is equal with no neglect on double simultaneous stimulation. Cerebellar function showed no ataxia for [id number] testing. No dysdiadochokinesia. Tone and bulk of muscles normal. Gait appears normal for age. On general examination, there is no carotid bruit or murmur, S1-S2 audible. Abdomen is soft nontender. Chest is clear. Peripheral pulses are present. No edema. Results - Laboratory Findings CBC and BMP: 07/12/20 08:56 07/12/20 08:56 Abnormal Lab Findings: Abnormal Labs 07/12/20 07/12/20 08:56 08:56 RBC 3.36 L Hgb 10.6 L Hct 29.8 L Eosinophils # 1.2 H Chloride 111 H Carbon Dioxide 20 L BUN 30 H Creatinine 1.56 H Glucose 104 H Assessment and Plan Assessment: * Acute Delirium, unclear etiology. No previous history of cognitive impairment, although still a possibility at this time. No obvious metabolic dysfunction identified with normal UA, chest x-ray and other metabolic workup. * Mild chronic renal insufficiency, stable * Anemia, stable Plan: * We will check B12, folate, TSH, B1 level. * Carotid Doppler rule out stenosis. * May need to follow up with neurologist as outpatient, to rule out underlying cognitive impairment.
[2020-07-12] MEDS: HEPARIN SODIUM,PORCINE/PF 5,000 UNIT/0.5 ML SYRINGE SQ SCH (22:20)
[2020-07-13 02:22] VITALS: BP 148/69; PULSE 83; TEMP 98.1
--- NOTE | 2020-07-13 04:27 | US ---
EXAMINATION TYPE: US carotid duplex BILAT DATE OF EXAM: 07/13/2020 COMPARISON: CT brain CLINICAL HISTORY: Altered mental status, delirium. Altered mental status, delirium. Hx hypertension, hyperlipidemia, diabetes, congestive heart failure per EMR. EXAM MEASUREMENTS: RIGHT: Peak Systolic Velocity (PSV) cm/sec ----- Right CCA: 79.5 ----- Right ICA: 96.2 ----- Right ECA: 123.2 ICA/CCA ratio: 1.2 RIGHT: End Diastole cm/sec ----- Right CCA: 12.4 ----- Right ICA: 10.7 ----- Right ECA: 6.9 LEFT: Peak Systolic Velocity (PSV) cm/sec ----- Left CCA: 103.9 ----- Left ICA: 168.1 ----- Left ECA: 130.7 ICA/CCA ratio: 1.6 LEFT: End Diastole cm/sec ----- Left CCA: 16.6 ----- Left ICA: 30.1 ----- Left ECA: 6.5 VERTEBRALS (direction of flow): Right Vertebral: Antegrade Left Vertebral: Antegrade Rhythm: Normal Intimal thickening seen bilaterally. Minimal plaque seen right carotid bulb. Elevated velocities with in the left ICA and left ECA. IMPRESSION: There is antegrade flow in the vertebral arteries. The images and measurements suggest 5 0-70% stenosis in the left internal carotid artery and 30-40% stenosis in the right internal carotid artery. Criteria for Assigning % of Stenosis / Diameter reduction (Estimation based on the indirect measurements of the internal carotid artery velocities (ICA PSV). 1. Normal (no stenosis)=ICA PSV < 125 cm/s: ratio < 2.0: ICA EDV<40 cm/s. 2. Less than 50% stenosis=ICA PSV < 125 cm/s: ratio < 2.0: ICA EDV<40 cm/s. 3. 50 to 69% stenosis=ICA PSV of 125 to 230 cm/s: ration 2.0 ? 4.0: ICA EDV 40-100 cm/s. 4. Greater than 70% stenosis to near occlusion= ICA PSV > 230 cm/s: ratio > 4.0: ICA EDV > 100 cm/s. 5. Near occlusion= ICA PSV velocities may be low or undetectable: variable ratio and ICA EDV. 6. Total occlusion=unable to detect flow.
[2020-07-13] MEDS: SODIUM CHLORIDE 0.9% 1,000 ML IV SCH (05:46)
[2020-07-13] MEDS ORDERED: LEVOTHYROXINE 137 MCG TAB PO SCH (06:30)
[2020-07-13 07:09] LABS: Glucose,Whole Blood 95 mg/dL (75-99)
[2020-07-13] MEDS: HEPARIN SODIUM,PORCINE/PF 5,000 UNIT/0.5 ML SYRINGE SQ SCH (07:42)
[2020-07-13] MEDS: ASPIRIN 81 MG PO SCH (07:42)
[2020-07-13] MEDS: FENOFIBRATE 160 MG TAB PO SCH (07:43)
[2020-07-13] MEDS ORDERED: LOSARTAN 50 MG TAB PO SCH (09:00)
[2020-07-13] MEDS ORDERED: NON FORMULARY DRUG (Ubidecarenone [Co Q-10] 100 MG Capsule) PO SCH (09:00)
[2020-07-13 10:32] LABS: Folate, Serum 20.1 ng/mL
[2020-07-13 11:40] LABS: Glucose,Whole Blood 129 mg/dL (75-99)
--- NOTE | 2020-07-13 12:16 | P.DS ---
Providers Date of admission: 07/12/20 11:50 Attending physician: Mini Rosales Consults: 07/12/20 11:10 Consult Physician Urgent Consulting Provider: Yessica Davis Consult Reason/Comments: Mental status Do you want consulting provider notified?: Yes Primary care physician: [facility] Course: 89-year-old female was brought in by family members because of altered mental status and hallucinations occasionally on and off symptoms. Patient doesn't have any fever chills doesn't have any signs or symptoms of infection patient doesn't have pneumonia on the chest x-ray urease essentially within normal limits. Patient is alert oriented 2 does have significant hearing problems because of which history is limited. CT of the head showed chronic microvascular ischemic changes. Patient doesn't have any cough dysuria denied any nausea vomiting. Patient creatinine is around 1.5 baseline appears to be on that. Patient is ALLERGIC to atorvastatin because of which patient is on fenofibrate. 07/13/2020 Patient was evaluated by physical and occupational therapy and they recommended home with home care and patient will not require any walker. Patient had to be evaluated by a speech therapy for mini cognitive testing. Patient probably has dementia which is probably vascular dementia patient will be discharged on aspirin no evidence of delirium at this time. Patient has low TSH and normal T4 I'll cut down the low dose of levothyroxine to 125 g. Patient will be discharged today to home to follow with primary care physician will also refer him to a neurologist for cognitive impairment and vascular dementia. Patient is on fenofibrate as patient is ALLERGIC to statins. Patient's vitamin D is not low. Patient creatinine yesterday was 1.56 I did repeat basic metabolic Profile today. Although patient has previous creatinines at the same level but I'm hoping that they did this improved. We will wait for the BMP to come back for discharge. PHYSICAL EXAMINATION: GENERAL: The patient is alert and oriented x2-3, not in any acute distress. Well developed, well nourished. HEENT: Pupils are round and equally reacting to light. EOMI. No scleral icterus. No conjunctival pallor. Normocephalic, atraumatic. No pharyngeal erythema. No thyromegaly. CARDIOVASCULAR: S1 and S2 present. No murmurs, rubs, or gallops. PULMONARY: Chest is clear to auscultation, no wheezing or crackles. ABDOMEN: Soft, nontender, nondistended, normoactive bowel sounds. No palpable organomegaly. MUSCULOSKELETAL: No joint swelling or deformity. EXTREMITIES: No cyanosis, clubbing, or pedal edema. NEUROLOGICAL: Gross neurological examination did not reveal any focal deficits. Does have generalized weakness and uses a cane for walking SKIN: No rashes. Assessment and Plan Plan: -Episodes of confusion: Secondary to dementia patient doesn't appear to have delirium patient has on and off episodes of Lucid and non lucid phases which is typical of dementia. Mini cognitive testing is pending patient will be discharged on aspirin patient most probably has vascular dementia patient has chronic microvascular ischemic changes on the CT of the head. -Hypertension -Chronic kidney disease stage III patient had a competent of acute renal failure patient because of which patient received IV fluids repeat BMP is still pending -Generalized weakness age due to related atrophy of the muscle Patient Condition at Discharge: Fair Plan - Discharge Summary Discharge Rx Participant: No New Discharge Prescriptions: Continue Gemfibrozil [Lopid] 600 mg PO BID Losartan [Cozaar] 50 mg PO DAILY Ameri-Cell 1 cap PO DAILY Super Fruit 1 cap PO DAILY Hoodia [place] 1 cap PO DAILY Ubidecarenone [Co Q-10] 200 mg PO DAILY Melatonin 5 mg PO HS Levothyroxine Sodium [Synthroid] 137 mcg PO DAILY Discharge Medication List Gemfibrozil [Lopid] 600 mg PO BID 06/17/14 [History] Losartan [Cozaar] 50 mg PO DAILY 09/07/17 [History] Ameri-Cell 1 cap PO DAILY 07/12/20 [History] Hoodia [place] 1 cap PO DAILY 07/12/20 [History] Levothyroxine Sodium [Synthroid] 137 mcg PO DAILY 07/12/20 [History] Melatonin 5 mg PO HS 07/12/20 [History] Super Fruit 1 cap PO DAILY 07/12/20 [History] Ubidecarenone [Co Q-10] 200 mg PO DAILY 07/12/20 [History] Follow up Appointment(s)/Referral(s): [facility], [NON-STAFF] - ([facility] will call you to arrange your first home care nurse visit. ) Riley Paez MD [STAFF PHYSICIAN] - 1 Week (office closed at time of discharge. Please call to make appointment ) Mando Ornelas MD [Primary Care Provider] - 08/09/20 10:00 am Patient Instructions/Handouts: Altered Mental Status (ED) Discharge Disposition: HOME WITH HOME HEALTH SERVICES
[2020-07-13 12:19] LABS: African American GFR (CKD) 36 (>60 ml/min/1.73 sqM); Anion Gap 10 mmol/L; Blood Urea Nitrogen 33 mg/dL (7-17); Calcium 9.2 mg/dL (8.4-10.2); Carbon Dioxide 20 mmol/L (22-30); Chloride 110 mmol/L (98-107); Glucose 130 mg/dL (74-99); Non-African American GFR(CKD) 31 (>60 ml/min/1.73 sqM); Potassium 4.2 mmol/L (3.5-5.1); Sodium 140 mmol/L (137-145)
== END 2020-07-13 12:44 | disposition home health service (06) ==
LOC: EC 07:35 → 4SSUR 11:50
PROVIDERS: ADMIT Hospitalist; ATTEND Hospitalist
DX: F03.90 Unspecified dementia, unspecified severity, without behavioral disturbance, psychotic disturbance, mood disturbance, and anxiety (principal); R42 Dizziness and giddiness; I13.0 Hypertensive heart and chronic kidney disease with heart failure and stage 1 through stage 4 chronic kidney disease, or unspecified chronic kidney disease; N17.9 Acute kidney failure, unspecified; E11.22 Type 2 diabetes mellitus with diabetic chronic kidney disease; N18.30 Chronic kidney disease, stage 3 unspecified; I50.9 Heart failure, unspecified; R53.1 Weakness; R44.3 Hallucinations, unspecified; E78.5 Hyperlipidemia, unspecified; D64.9 Anemia, unspecified; M19.042 Primary osteoarthritis, left hand; M19.041 Primary osteoarthritis, right hand; M19.012 Primary osteoarthritis, left shoulder; M19.011 Primary osteoarthritis, right shoulder; Z20.822 Contact with and (suspected) exposure to COVID-19; Z88.8 Allergy status to other drugs, medicaments and biological substances; Z87.01 Personal history of pneumonia (recurrent); Z86.14 Personal history of Methicillin resistant Staphylococcus aureus infection; Z79.899 Other long term (current) drug therapy; Z79.890 Hormone replacement therapy; Z84.89 Family history of other specified conditions
CPT/HCPCS: 96360; 96361 ×2; 96372 ×2; 51701; 99285; 36415; 97161; 97165; 84439; 84425; 80053; 80048; 84443; 82607; 82140; 82746; 83605; 83735; 85025; 81003; 87635; 71046; 93880; 70450; G0378 ×2; J1644 ×2

== ENCOUNTER 2020-08-11 05:00 | Emergency (ER) | payer MEDICARE ==
[2020-08-11 05:08] VITALS: RESP 22; TEMP 97.7
[2020-08-11 05:58] LABS: Basophils # (A) 0.1 k/uL (0-0.2); Basophils % (A) 1 %; Eosinophils # (A) 0.6 k/uL (0-0.7); Eosinophils % (A) 6 %; HCT 29.3 % (34.0-46.0); HGB 10.4 gm/dL (11.4-16.0); Lymphocytes # (A) 2.5 k/uL (1.0-4.8); Lymphocytes % (A) 24 %; MCH 32.5 pg (25.0-35.0); MCHC 35.6 g/dL (31.0-37.0); MCV 91.3 fL (80.0-100.0); Mean Platelet Volume 6.7; Monocytes # (A) 0.5 k/uL (0-1.0); Monocytes % (A) 5 %; Neutrophils # (A) 6.5 k/uL (1.3-7.7); Neutrophils % (A) 63 %; Platelet Count 351 k/uL (150-450); RDW 14.2 % (11.5-15.5); WBC 10.3 k/uL (3.8-10.6)
--- NOTE | 2020-08-11 06:02 | ED ---
URI HPI - General Chief Complaint: Upper Respiratory Infection Stated Complaint: SOB Time Seen by Provider: 08/11/20 05:11 Source: patient, family Mode of arrival: ambulatory Limitations: no limitations - History of Present Illness MD Complaint: nasal congestion Onset/Timin -: hour(s) Severity scale (1-10): 0 Consistency: constant Improves With: nothing Worsens With: nothing Associated Symptoms: rhinorrhea, nasal congestion, cough Treatments Prior to Arrival: none - Related Data Home Medications Medication Instructions Recorded Confirmed Gemfibrozil [Lopid] 600 mg PO BID 06/17/14 07/12/20 Losartan [Cozaar] 50 mg PO DAILY 09/07/17 07/12/20 Ameri-Cell 1 cap PO DAILY 07/12/20 07/12/20 Hoodia Sultana 1 cap PO DAILY 07/12/20 07/12/20 Melatonin 5 mg PO HS 07/12/20 07/12/20 Super Fruit 1 cap PO DAILY 07/12/20 07/12/20 Ubidecarenone [Co Q-10] 200 mg PO DAILY 07/12/20 07/12/20 Previous Rx's Medication Instructions Recorded Aspirin 81 mg PO DAILY #30 chew 07/13/20 Levothyroxine Sodium 125 mcg PO DAILY #30 tablet 07/13/20 Amoxicillin 875 mg PO Q12HR #14 tablet 08/11/20 Allergies Allergy/AdvReac Type Severity Reaction Status Date / Time nadolol [From Corgard] Allergy Nausea & Verified 08/11/20 05:08 Vomiting atorvastatin calcium AdvReac MUSCLE PAIN Verified 08/11/20 05:08 [From Lipitor] Review of Systems ROS Statement: Those systems with pertinent positive or pertinent negative responses have been documented in the HPI. ROS Other: All systems not noted in ROS Statement are negative. Constitutional: Denies: fever, chills ENT: Reports: congestion. Denies: ear pain, throat pain Respiratory: Reports: cough, dyspnea. Denies: wheezes Cardiovascular: Denies: chest pain, palpitations Gastrointestinal: Denies: abdominal pain, vomiting, diarrhea Genitourinary: Denies: dysuria Musculoskeletal: Denies: back pain Skin: Denies: rash Neurological: Denies: headache, weakness, numbness Past Medical History Past Medical History: Heart Failure, Diabetes Mellitus, Hyperlipidemia, Hypertension, Osteoarthritis (OA), Pneumonia, Renal Disease, Thyroid Disorder Additional Past Medical History / Comment(s): NIDDM type II/diet controlled now, hyponatremia, R upper lobe pneumonia, CKD stage 11/111, anemia, arthritis bilateral hands/shoulders, occasionally knees with "give out", currently L great toenail coming off, 2008 MRSA L axillae with sepsis History of Any Multi-Drug Resistant Organisms: MRSA Date of last positivie culture/infection: 08/2008 MDRO Source:: axilla Past Surgical History: Breast Surgery, Ear Surgery Additional Past Surgical History / Comment(s): MRSA boil removed left axilla, cysts removed from left breast, cyst removed from forehead, cataracts, right shoulder surgery for rotator cuff, 2016 bronchoscopy/biopsy/BAL, 1991 ear surgery/patch graft-think it was R ear. Past Anesthesia/Blood Transfusion Reactions: No Reported Reaction, Family Hisory of Malignant Hyperthermia Past Psychological History: No Psychological Hx Reported Smoking Status: Never smoker Past Alcohol Use History: None Reported Past Drug Use History: None Reported - Past Family History Father Family Medical History: No Reported History Additional Family Medical History / Comment(s): Father was healthy Mother Family Medical History: No Reported History Additional Family Medical History / Comment(s): Mother lived to be 91 yrs old. General Exam Limitations: no limitations General appearance: alert, in no apparent distress Head exam: Present: atraumatic, normocephalic Eye exam: Present: normal appearance. Absent: scleral icterus, conjunctival in jection ENT exam: Present: normal oropharynx Neck exam: Present: normal inspection Respiratory exam: Present: normal lung sounds bilaterally. Absent: respiratory distress, wheezes, rales, rhonchi, stridor Cardiovascular Exam: Present: regular rate, normal rhythm, normal heart sounds. Absent: systolic murmur, diastolic murmur, rubs, gallop GI/Abdominal exam: Present: soft. Absent: distended, tenderness, guarding, rebound, rigid, mass Extremities exam: Present: normal inspection, normal capillary refill. Absent: pedal edema, calf tenderness Back exam: Present: normal inspection. Absent: CVA tenderness (R), CVA tend erness (L) Neurological exam: Present: alert Skin exam: Present: warm, dry, intact, normal color. Absent: rash Course Vital Signs 08/11/20 05:05 Temperature 97.7 F Pulse Rate 110 H Respiratory 22 Rate Blood Pressure 190/82 O2 Sat by Pulse 94 L Oximetry Medical Decision Making - Lab Data Result diagrams: 08/11/20 05:44 08/11/20 05:44 Lab Results 08/11/20 08/11/20 08/11/20 Range/Units 05:44 05:44 05:44 WBC 10.3 (3.8-10.6) k/uL RBC 3.20 L (3.80-5.40) m/uL Hgb 10.4 L (11.4-16.0) gm/dL Hct 29.3 L (34.0-46.0) % MCV 91.3 (80.0-100.0) fL MCH 32.5 (25.0-35.0) pg MCHC 35.6 (31.0-37.0) g/dL RDW 14.2 (11.5-15.5) % Plt Count 351 (150-450) k/uL MPV 6.7 Neutrophils % 63 % Lymphocytes % 24 % Monocytes % 5 % Eosinophils % 6 % Basophils % 1 % Neutrophils # 6.5 (1.3-7.7) k/uL Lymphocytes # 2.5 (1.0-4.8) k/uL Monocytes # 0.5 (0-1.0) k/uL Eosinophils # 0.6 (0-0.7) k/uL Basophils # 0.1 (0-0.2) k/uL PT 10.6 (9.0-12.0) sec INR 1.0 (<1.2) APTT 24.1 (22.0-30.0) sec Sodium 136 L (137-145) mmol/L Potassium 4.2 (3.5-5.1) mmol/L Chloride 103 (98-107) mmol/L Carbon Dioxide 23 (22-30) mmol/L Anion Gap 10 mmol/L BUN 20 H (7-17) mg/dL Creatinine 1.56 H (0.52-1.04) mg/dL Est GFR (CKD-EPI)AfAm 34 (>60 ml/min/1.73 sqM) Est GFR (CKD-EPI)NonAf 30 (>60 ml/min/1.73 sqM) Glucose 116 H (74-99) mg/dL Plasma Lactic Acid Arnie (0.7-2.0) mmol/L Calcium 9.3 (8.4-10.2) mg/dL Total Bilirubin 0.6 (0.2-1.3) mg/dL AST 26 (14-36) U/L ALT 13 (4-34) U/L Alkaline Phosphatase 88 (38-126) U/L Troponin I (0.000-0.034) ng/mL NT-Pro-B Natriuret Pep pg/mL Total Protein 7.5 (6.3-8.2) g/dL Albumin 4.2 (3.5-5.0) g/dL Coronavirus (PCR) (Not Detectd) 08/11/20 08/11/20 08/11/20 Range/Units 05:44 05:44 05:44 WBC (3.8-10.6) k/uL RBC (3.80-5.40) m/uL Hgb (11.4-16.0) gm/dL Hct (34.0-46.0) % MCV (80.0-100.0) fL MCH (25.0-35.0) pg MCHC (31.0-37.0) g/dL RDW (11.5-15.5) % Plt Count (150-450) k/uL MPV Neutrophils % % Lymphocytes % % Monocytes % % Eosinophils % % Basophils % % Neutrophils # (1.3-7.7) k/uL Lymphocytes # (1.0-4.8) k/uL Monocytes # (0-1.0) k/uL Eosinophils # (0-0.7) k/uL Basophils # (0-0.2) k/uL PT (9.0-12.0) sec INR (<1.2) APTT (22.0-30.0) sec Sodium (137-145) mmol/L Potassium (3.5-5.1) mmol/L Chloride (98-107) mmol/L Carbon Dioxide (22-30) mmol/L Anion Gap mmol/L BUN (7-17) mg/dL Creatinine (0.52-1.04) mg/dL Est GFR (CKD-EPI)AfAm (>60 ml/min/1.73 sqM) Est GFR (CKD-EPI)NonAf (>60 ml/min/1.73 sqM) Glucose (74-99) mg/dL Plasma Lactic Acid Arnie 1.0 (0.7-2.0) mmol/L Calcium (8.4-10.2) mg/dL Total Bilirubin (0.2-1.3) mg/dL AST (14-36) U/L ALT (4-34) U/L Alkaline Phosphatase (38-126) U/L Troponin I <0.012 (0.000-0.034) ng/mL NT-Pro-B Natriuret Pep 493 pg/mL Total Protein (6.3-8.2) g/dL Albumin (3.5-5.0) g/dL Coronavirus (PCR) (Not Detectd) 08/11/20 Range/Units 05:44 WBC (3.8-10.6) k/uL RBC (3.80-5.40) m/uL Hgb (11.4-16.0) gm/dL Hct (34.0-46.0) % MCV (80.0-100.0) fL MCH (25.0-35.0) pg MCHC (31.0-37.0) g/dL RDW (11.5-15.5) % Plt Count (150-450) k/uL MPV Neutrophils % % Lymphocytes % % Monocytes % % Eosinophils % % Basophils % % Neutrophils # (1.3-7.7) k/uL Lymphocytes # (1.0-4.8) k/uL Monocytes # (0-1.0) k/uL Eosinophils # (0-0.7) k/uL Basophils # (0-0.2) k/uL PT (9.0-12.0) sec INR (<1.2) APTT (22.0-30.0) sec Sodium (137-145) mmol/L Potassium (3.5-5.1) mmol/L Chloride (98-107) mmol/L Carbon Dioxide (22-30) mmol/L Anion Gap mmol/L BUN (7-17) mg/dL Creatinine (0.52-1.04) mg/dL Est GFR (CKD-EPI)AfAm (>60 ml/min/1.73 sqM) Est GFR (CKD-EPI)NonAf (>60 ml/min/1.73 sqM) Glucose (74-99) mg/dL Plasma Lactic Acid Arnie (0.7-2.0) mmol/L Calcium (8.4-10.2) mg/dL Total Bilirubin (0.2-1.3) mg/dL AST (14-36) U/L ALT (4-34) U/L Alkaline Phosphatase (38-126) U/L Troponin I (0.000-0.034) ng/mL NT-Pro-B Natriuret Pep pg/mL Total Protein (6.3-8.2) g/dL Albumin (3.5-5.0) g/dL Coronavirus (PCR) Not Detected (Not Detectd) - EKG Data -: EKG Interpreted by Me EKG shows normal: sinus rhythm, axis (Normal), intervals (Normal), QRS complexes (Normal), ST-T waves (Normal) Rate: normal (Rate 75 bpm) Interpretation: normal EKG Disposition Clinical Impression: Sinusitis Disposition: HOME SELF-CARE Condition: Good Instructions (If sedation given, give patient instructions): Upper Respiratory Infection (ED) Prescriptions: Amoxicillin 875 mg PO Q12HR #14 tablet Is patient prescribed a controlled substance at d/c from ED?: No Referrals: Mando Ornelas MD [Primary Care Provider] - 1-2 days
[2020-08-11 06:07] LABS: Albumin 4.2 g/dL (3.5-5.0); Calcium 9.3 mg/dL (8.4-10.2); Potassium 4.2 mmol/L (3.5-5.1); Total Bilirubin 0.6 mg/dL (0.2-1.3); Total Protein 7.5 g/dL (6.3-8.2)
[2020-08-11 06:18] LABS: Partial Thromboplastin Time 24.1 sec (22.0-30.0); Prothrombin Time 10.6 sec (9.0-12.0)
--- NOTE | 2020-08-11 06:59 | XR ---
EXAMINATION TYPE: XR chest 2V DATE OF EXAM: 08/11/2020 COMPARISON: 07/12/2020 HISTORY: Weakness TECHNIQUE: Frontal and lateral views of the chest are obtained. FINDINGS: There is no focal air space opacity, pleural effusion, or pneumothorax seen. The cardiac silhouette size is within normal limits. The osseous structures are intact. IMPRESSION: No acute cardiopulmonary process.
[2020-08-11] MEDS ORDERED: AMOXICILLIN 875 MG TAB PO STA (07:15)
[2020-08-11] MEDS ORDERED: OXYMETAZOLINE 0.05% NASL SPRAY 1 SPRAY BOTTLE NASAL STA (07:16)
[2020-08-11 07:37] VITALS: BP 169/87; PULSE 86
== END 2020-08-11 07:37 | disposition home or self-care (01) ==
LOC: EC 05:00
DX: J32.9 Chronic sinusitis, unspecified (principal); E11.22 Type 2 diabetes mellitus with diabetic chronic kidney disease; I13.0 Hypertensive heart and chronic kidney disease with heart failure and stage 1 through stage 4 chronic kidney disease, or unspecified chronic kidney disease; N18.30 Chronic kidney disease, stage 3 unspecified; I50.9 Heart failure, unspecified; Z20.822 Contact with and (suspected) exposure to COVID-19; Z88.8 Allergy status to other drugs, medicaments and biological substances
CPT/HCPCS: 36415; 71046; 80053; 83605; 83880; 84484; 85025; 85610; 85730; 87635; 93005; 99284; 99285

== ENCOUNTER → 2020-12-17 | Outpatient (CLI) | payer MEDICARE ==
[2020-12-17 11:54] LABS: African American GFR (CKD) 45.4 (60.0-200.0); Albumin 4.1 g/dL (3.8-4.9); Albumin/Globulin Ratio 1.26 (1.60-3.17); Anion Gap 12.2 mmol/L (4.00-12.00); BUN/Creat Ratio 15.28 Ratio (12.00-20.00); Blood Urea Nitrogen 18.8 mg/dL (9.0-27.0); Calcium 9.4 mg/dL (8.7-10.3); Carbon Dioxide 21.1 mmol/L (21.6-31.8); Chol/HDL Ratio 4.19 Ratio; Globulin 3.2 g/dL (1.6-3.3); HDL Cholesterol 47.7 mg/dL (40.00-60.00); Non-African American GFR(CKD) 39.1 (60.0-200.0); Potassium 4.4 mmol/L (3.5-5.5); Total Bilirubin 0.3 mg/dL (0.30-1.20); Total Protein 7.3 g/dL (6.2-8.2); Triglycerides 86.3 mg/dL (0.00-149.00); VLDL Calculation 17.26 mg/dL (5.00-40.00)
[2020-12-18 11:51] LABS: Urine Creatinine 34.3 mg/dL (28.0-217.0)
== END | disposition home or self-care (01) ==
LOC: LABWHC1 08:03
PROVIDERS: ATTEND Internal Medicine Endocrinology, Diabetes & Metabolism
DX: E11.65 Type 2 diabetes mellitus with hyperglycemia (principal)
CPT/HCPCS: 36415; 80053; 80061; 82043; 82570; 83036; 84443

== ENCOUNTER 2021-03-28 13:25 | Emergency (ER) | payer MEDICARE ==
[2021-03-28 13:35] VITALS: PULSE 64; TEMP 97.6
[2021-03-28] MEDS ORDERED: PANTOPRAZOLE 40 MG/10 ML VIAL IVP STA (14:08)
--- NOTE | 2021-03-28 14:11 | ED ---
General Adult HPI - General Chief complaint: GI Bleed Stated complaint: abd labs Time Seen by Provider: 03/28/21 13:54 Source: patient, family, RN notes reviewed Mode of arrival: ambulatory Limitations: no limitations - History of Present Illness Initial comments: Patient is a pleasant 89-year-old female presenting to the emergency Department with anemia. Majority of history is taken from granddaughter. Patient does have chronically dark stools secondary to iron intake. Patient admits to being more fatigued recently otherwise has no complaints. Patient had blood work done today with hemoglobin of 6.0 and is advised to come to the hospital. - Related Data Previous Rx's Medication Instructions Recorded Levothyroxine Sodium 125 mcg PO DAILY #30 tablet 07/13/20 Apixaban [Eliquis] 2.5 mg PO BID 30 Days #60 tab 02/26/21 Ferrous Sulfate [Iron (65 MG 325 mg PO BID-W/MEALS #60 tab 03/04/21 Elemental)] Furosemide [Lasix] 40 mg PO DAILY #30 tab 03/04/21 Losartan [Cozaar] 25 mg PO DAILY #30 tab 03/04/21 Melatonin 5 mg PO HS PRN #5 tablet 03/04/21 Metoprolol Tartrate [Lopressor] 50 mg PO BID #60 tab 03/04/21 Nitroglycerin Oint [Nitro-Bid Oint] 1 inch TOPICAL TID #20 packet 03/04/21 amLODIPine [Norvasc] 10 mg PO DAILY #30 tab 03/04/21 hydrALAZINE HCL [Apresoline] 25 mg PO BID #60 tab 03/04/21 Allergies Allergy/AdvReac Type Severity Reaction Status Date / Time nadolol [From Corgard] Allergy Nausea & Verified 03/28/21 16:05 Vomiting atorvastatin calcium AdvReac MUSCLE PAIN Verified 03/28/21 16:05 [From Lipitor] Review of Systems ROS Statement: Those systems with pertinent positive or pertinent negative responses have been documented in the HPI. ROS Other: All systems not noted in ROS Statement are negative. Constitutional: Denies: fever Eyes: Denies: eye pain ENT: Denies: ear pain Respiratory: Denies: cough Cardiovascular: Denies: chest pain Endocrine: Reports: fatigue Gastrointestinal: Reports: as per HPI. Denies: abdominal pain Genitourinary: Denies: dysuria Musculoskeletal: Denies: back pain Skin: Denies: rash Neurological: Denies: weakness Past Medical History Past Medical History: No Reported History, Heart Failure, Diabetes Mellitus, Hyperlipidemia, Hypertension, Osteoarthritis (OA), Pneumonia, Renal Disease, Thyroid Disorder Additional Past Medical History / Comment(s): NIDDM type II/diet controlled now, hyponatremia, R upper lobe pneumonia, CKD stage 11111, anemia, arthritis bilateral hands/shoulders, occasionally knees with "give out", MRSA L axillae with sepsis History of Any Multi-Drug Resistant Organisms: MRSA Date of last positivie culture/infection: 08/2008 MDRO Source:: axilla Past Surgical History: Breast Surgery, Ear Surgery Additional Past Surgical History / Comment(s): MRSA boil removed left axilla, cysts removed from left breast, cyst removed from forehead, cataracts, right shoulder surgery for rotator cuff, 2016 bronchoscopy/biopsy/BAL, 1991 ear surgery/patch graft-think it was R ear. Past Anesthesia/Blood Transfusion Reactions: No Reported Reaction, Family Hisory of Malignant Hyperthermia Past Psychological History: No Psychological Hx Reported Smoking Status: Never smoker Past Alcohol Use History: None Reported Past Drug Use History: None Reported - Past Family History Father Family Medical History: No Reported History Additional Family Medical History / Comment(s): Father was healthy Mother Family Medical History: No Reported History Additional Family Medical History / Comment(s): Mother lived to be 91 yrs old. General Exam Limitations: no limitations General appearance: alert, in no apparent distress Head exam: Present: normocephalic Eye exam: Present: normal appearance Neck exam: Present: normal inspection Respiratory exam: Present: normal lung sounds bilaterally Cardiovascular Exam: Present: regular rate, normal rhythm GI/Abdominal exam: Present: soft. Absent: distended, tenderness Rectal exam: Present: normal inspection. Absent: black stool, bloody stool Extremities exam: Present: normal inspection. Absent: pedal edema, calf tenderness Neurological exam: Present: alert Psychiatric exam: Present: normal affect, normal mood Skin exam: Present: normal color Course Vital Signs 03/28/21 13:32 Temperature 97.6 F Pulse Rate 64 Respiratory 16 Rate Blood Pressure 138/51 O2 Sat by Pulse 95 Oximetry Medical Decision Making - Medical Decision Making Case was discussed with Dr. Alejandre who agrees patient is not a candidate for blood transfusion at this time. He believes patient should be receiving erythropoietin through nephrology. He also recommends close follow-up hemoglobin level. Patient reevaluated. Patient and family updated on results and plan. - Lab Data Result diagrams: 03/28/21 15:00 03/28/21 15:00 Lab Results 03/28/21 03/28/21 03/28/21 Range/Units 15:00 15:00 15:00 WBC 11.1 H (3.8-10.6) k/uL RBC 2.06 L (3.80-5.40) m/uL Hgb 6.6 L* (11.4-16.0) gm/dL Hct 20.2 L (34.0-46.0) % MCV 97.9 (80.0-100.0) fL MCH 31.9 (25.0-35.0) pg MCHC 32.6 (31.0-37.0) g/dL RDW 19.4 H (11.5-15.5) % Plt Count 183 (150-450) k/uL MPV 10.4 Hypochromasia Slight Anisocytosis Slight Macrocytosis Slight PT 11.4 (9.0-12.0) sec INR 1.1 (<1.2) APTT 24.3 (22.0-30.0) sec Sodium (137-145) mmol/L Potassium (3.5-5.1) mmol/L Chloride (98-107) mmol/L Carbon Dioxide (22-30) mmol/L Anion Gap mmol/L BUN (7-17) mg/dL Creatinine (0.52-1.04) mg/dL Est GFR (CKD-EPI)AfAm (>60 ml/min/1.73 sqM) Est GFR (CKD-EPI)NonAf (>60 ml/min/1.73 sqM) Glucose (74-99) mg/dL Calcium (8.4-10.2) mg/dL Total Bilirubin (0.2-1.3) mg/dL AST (14-36) U/L ALT (4-34) U/L Alkaline Phosphatase (38-126) U/L Total Protein (6.3-8.2) g/dL Albumin (3.5-5.0) g/dL Stool Occult Blood Negative (Negative) Blood Type Blood Type Recheck Bld Type Recheck Status Antibody Screen Spec Expiration Date 03/28/21 03/28/21 Range/Units 15:00 15:00 WBC (3.8-10.6) k/uL RBC (3.80-5.40) m/uL Hgb (11.4-16.0) gm/dL Hct (34.0-46.0) % MCV (80.0-100.0) fL MCH (25.0-35.0) pg MCHC (31.0-37.0) g/dL RDW (11.5-15.5) % Plt Count (150-450) k/uL MPV Hypochromasia Anisocytosis Macrocytosis PT (9.0-12.0) sec INR (<1.2) APTT (22.0-30.0) sec Sodium 132 L (137-145) mmol/L Potassium 4.5 (3.5-5.1) mmol/L Chloride 104 (98-107) mmol/L Carbon Dioxide 18 L (22-30) mmol/L Anion Gap 10 mmol/L BUN 33 H (7-17) mg/dL Creatinine 1.92 H (0.52-1.04) mg/dL Est GFR (CKD-EPI)AfAm 26 (>60 ml/min/1.73 sqM) Est GFR (CKD-EPI)NonAf 23 (>60 ml/min/1.73 sqM) Glucose 117 H (74-99) mg/dL Calcium 9.3 (8.4-10.2) mg/dL Total Bilirubin 0.5 (0.2-1.3) mg/dL AST 59 H (14-36) U/L ALT 26 (4-34) U/L Alkaline Phosphatase 110 (38-126) U/L Total Protein 6.9 (6.3-8.2) g/dL Albumin 3.1 L (3.5-5.0) g/dL Stool Occult Blood (Negative) Blood Type A Positive Blood Type Recheck No Previous Record Bld Type Recheck Status CABO Indicated Antibody Screen NEGATIVE Spec Expiration Date 03/31/2021 - 2299 Disposition Clinical Impression: Anemia Disposition: HOME SELF-CARE Condition: Stable Instructions (If sedation given, give patient instructions): Anemia (ED) Additional Instructions: Please follow-up with your java technical manager and primary care physician in the being the week. Repeat blood levels on Thursday. Return for increased fatigue or weakness, worsening or changing symptoms or other concerns or any bleeding. Is patient prescribed a controlled substance at d/c from ED?: No Referrals: Mando Ornelas MD [Primary Care Provider] - 1-2 days Kristyn Hutton MD [STAFF PHYSICIAN] - 1-2 days Time of Disposition: 16:25
[2021-03-28 15:29] LABS: Albumin 3.1 g/dL (3.5-5.0); Calcium 9.3 mg/dL (8.4-10.2); Potassium 4.5 mmol/L (3.5-5.1); Total Bilirubin 0.5 mg/dL (0.2-1.3); Total Protein 6.9 g/dL (6.3-8.2)
[2021-03-28 15:32] LABS: Anisocytosis Slight; HCT 20.2 % (34.0-46.0); Hypochromasia Slight; MCH 31.9 pg (25.0-35.0); MCHC 32.6 g/dL (31.0-37.0); MCV 97.9 fL (80.0-100.0); Macrocytosis Slight; Mean Platelet Volume 10.4; Platelet Count 183 k/uL (150-450); RBC 2.06 m/uL (3.80-5.40); RDW 19.4 % (11.5-15.5)
[2021-03-28 15:33] LABS: INR 1.1 (<1.2); Partial Thromboplastin Time 24.3 sec (22.0-30.0); Prothrombin Time 11.4 sec (9.0-12.0)
[2021-03-28 15:43] LABS: HGB 6.6 gm/dL (11.4-16.0)
--- NOTE | 2021-03-28 16:36 | P.CONS ---
History of Present Illness - Reason for Consult Hospital admission - History of Present Illness Patient is a pleasant 89-year-old female was in the emergency department because of her severe anemia patient had hemoglobin of 6.6 didn't qualify for blood transfusion patient was having dark stools but her frequency of stools is once in 2 days and patient is on iron supplementation which is controlled between to her dark stools. The for acute GI bleed at this time patient denied any blood in the stools. Patient admits to being bit fatigued. Patient did not qualify for blood transfusion at this time recommendation is to transfuse if hemoglobin is less than 6.5 and repeat hemoglobin on Thursday for its presence point. Patient will be transfused at that time. I reviewed her previous iron studies patient appears to have ferritin of 450 and TIBC is good patient and deficiency appears to be secondary to chronic kidney disease as of which I'll give her a dose of darbopoitin alpha may need erythropoietin abdominal supplementation as an outpatient for which patient will need to be reevaluated again by nephrology. Patient will be referred to nephrology and primary care physician as an outpatient with repeat CBC on Thursday. Patient also has some metabolic acidosis secondary to chronic kidney disease will be discharged on sodium bicarbonate by mouth supplementation. REVIEW OF SYSTEMS: CONSTITUTIONAL: No fever. HEENT: No recent visual problems or hearing problems. Denied any sore throat. CARDIOVASCULAR: No chest pain, orthopnea, PND, no palpitations, no syncope. PULMONARY: No shortness of breath, no cough, no hemoptysis. GASTROINTESTINAL: No diarrhea, no nausea, no vomiting, no abdominal pain. NEUROLOGICAL: No headaches, no weakness, no numbness. HEMATOLOGICAL: Denies any bleeding or petechiae. GENITOURINARY: Denies any burning micturition, frequency, or urgency. MUSCULOSKELETAL/RHEUMATOLOGICAL: Denies any joint pain, swelling, or any muscle pain. ENDOCRINE: Denies any polyuria or polydipsia. The rest of the 14-point review of systems is negative. PHYSICAL EXAMINATION: GENERAL: The patient is alert and oriented x3, not in any acute distress. Well developed, well nourished. HEENT: Pupils are round and equally reacting to light. EOMI. No scleral icterus. No conjunctival pallor. Normocephalic, atraumatic. No pharyngeal erythema. No thyromegaly. CARDIOVASCULAR: S1 and S2 present. No murmurs, rubs, or gallops. PULMONARY: Chest is clear to auscultation, no wheezing or crackles. ABDOMEN: Soft, nontender, nondistended, normoactive bowel sounds. No palpable organomegaly. MUSCULOSKELETAL: No joint swelling or deformity. EXTREMITIES: No cyanosis, clubbing, or pedal edema. NEUROLOGICAL: Gross neurological examination did not reveal any focal deficits. SKIN: No rashes. Assessment and plan -Severe anemia: Unfortunately patient didn't qualify for blood transfusion at this time patient doesn't have any acute GI bleed nothing much else can be offered with the hospitalization patient can be discharged will be given an injection about avoiding alpha will repeat the CBC again on Thursday. If hemoglobin comes back lower than 6.5 L blood transfusion at that time I and studies were reviewed. Anemia appears to be secondary to chronic kidney disease may need darbepoetin or erythropoietin supplementation -Chronic kidney disease stage III patient was diagnosed with cardiorenal syndrome in the past -Congestive heart failure chronic diastolic dysfunction without acute exacerbation -Hypertension next and-hyperlipidemia Hypothyroidism - type 2 diabetes mellitus Patient doesn't have any acute GI bleed any acute blood loss at this time, didn't qualify for any blood transfusion, will not benefit from hospitalization. Past Medical History Past Medical History: No Reported History, Heart Failure, Diabetes Mellitus, Hyperlipidemia, Hypertension, Osteoarthritis (OA), Pneumonia, Renal Disease, Thyroid Disorder Additional Past Medical History / Comment(s): NIDDM type II/diet controlled now, hyponatremia, R upper lobe pneumonia, CKD stage 11/111, anemia, arthritis bilateral hands/shoulders, occasionally knees with "give out", MRSA L axillae with sepsis History of Any Multi-Drug Resistant Organisms: MRSA Year Discovered:: 08/2008 MDRO Source:: axilla Past Surgical History: Breast Surgery, Ear Surgery Additional Past Surgical History / Comment(s): MRSA boil removed left axilla, cysts removed from left breast, cyst removed from forehead, cataracts, right s [place] surgery for rotator cuff, 2016 bronchoscopy/biopsy/BAL, 1991 ear surgery/patch graft-think it was R ear. Past Anesthesia/Blood Transfusion Reactions: No Reported Reaction, Family Hisory of Malignant Hyperthermia Past Psychological History: No Psychological Hx Reported Smoking Status: Never smoker Past Alcohol Use History: None Reported Past Drug Use History: None Reported - Past Family History Father Family Medical History: No Reported History Additional Family Medical History / Comment(s): Father was healthy Mother Family Medical History: No Reported History Additional Family Medical History / Comment(s): Mother lived to be 91 yrs old. Medications and Allergies Home Medications Medication Instructions Recorded Confirmed Type Levothyroxine Sodium 125 mcg PO DAILY #30 tablet 07/13/20 03/28/21 Rx Apixaban [Eliquis] 2.5 mg PO BID 30 Days #60 tab 02/26/21 03/28/21 Rx Ferrous Sulfate [Iron (65 MG 325 mg PO BID-W/MEALS #60 tab 03/04/21 03/28/21 Rx Elemental)] Furosemide [Lasix] 40 mg PO DAILY #30 tab 03/04/21 03/28/21 Rx Losartan [Cozaar] 25 mg PO DAILY #30 tab 03/04/21 03/28/21 Rx Melatonin 5 mg PO HS PRN #5 tablet 03/04/21 03/28/21 Rx Metoprolol Tartrate [Lopressor] 50 mg PO BID #60 tab 03/04/21 03/28/21 Rx Nitroglycerin Oint [Nitro-Bid Oint] 1 inch TOPICAL TID #20 packet 03/04/21 03/28/21 Rx amLODIPine [Norvasc] 10 mg PO DAILY #30 tab 03/04/21 03/28/21 Rx hydrALAZINE HCL [Apresoline] 25 mg PO BID #60 tab 03/04/21 03/28/21 Rx Sodium Bicarbonate Tab 650 mg PO BID #60 tablet 03/28/21 Rx Allergies Allergy/AdvReac Type Severity Reaction Status Date / Time nadolol [From Corgard] Allergy Nausea & Verified 03/28/21 16:05 Vomiting atorvastatin calcium AdvReac MUSCLE PAIN Verified 03/28/21 16:05 [From Lipitor] Physical Exam Vitals: Vital Signs Temp Pulse Resp BP Pulse Ox 03/28/21 13:32 97.6 F 64 16 138/51 95 Intake and Output 03/28/21 03/28/21 03/28/21 06:59 14:59 22:59 Other: Weight 58.06 kg Results CBC & Chem 7: 03/28/21 15:00 03/28/21 15:00 Labs: Abnormal Lab Results - Last 24 Hours (Table) 03/28/21 03/28/21 Range/Units 15:00 15:00 WBC 11.1 H (3.8-10.6) k/uL RBC 2.06 L (3.80-5.40) m/uL Hgb 6.6 L* (11.4-16.0) gm/dL Hct 20.2 L (34.0-46.0) % RDW 19.4 H (11.5-15.5) % Sodium 132 L (137-145) mmol/L Carbon Dioxide 18 L (22-30) mmol/L BUN 33 H (7-17) mg/dL Creatinine 1.92 H (0.52-1.04) mg/dL Glucose 117 H (74-99) mg/dL AST 59 H (14-36) U/L Albumin 3.1 L (3.5-5.0) g/dL
[2021-03-28 16:39] LABS: Band Neutrophils % 2 %; Eosinophils # (M) 0.53 k/uL (0-0.7); Lymphocytes # (M) 3.39 k/uL (1.0-4.8); Metamyelocytes # (M) 0.11 k/uL (0); Metamyelocytes % 1 %; Monocytes # (M) 0.42 k/uL (0-1.0); Neutrophils % (M) 58 %; Nucleated Red Blood Cells 5 /100 WBC (0-0); Polychromasia Present; Total Cells Counted 200; WBC 10.6 k/uL (3.8-10.6)
[2021-03-28 16:55] VITALS: BP 141/76; RESP 18
[2021-03-28] MEDS ORDERED: DARBEPOETIN ALFA 40 MCG/0.4 ML SYRINGE SQ SCH (18:00)
== END 2021-03-28 17:17 | disposition home or self-care (01) ==
LOC: EC 13:25
DX: D63.1 Anemia in chronic kidney disease (principal); E78.5 Hyperlipidemia, unspecified; M19.90 Unspecified osteoarthritis, unspecified site; I11.9 Hypertensive heart disease without heart failure; E11.22 Type 2 diabetes mellitus with diabetic chronic kidney disease; N18.30 Chronic kidney disease, stage 3 unspecified; I50.32 Chronic diastolic (congestive) heart failure; E03.9 Hypothyroidism, unspecified; Z79.899 Other long term (current) drug therapy; Z79.890 Hormone replacement therapy; Z79.01 Long term (current) use of anticoagulants; Z88.8 Allergy status to other drugs, medicaments and biological substances
CPT/HCPCS: 99285 ×2; 96374 ×2; 96372 ×2; 36415; 86900; 86901; 80053; 85025; 85610; 85730; 86850; 82272; C9113; J0881

== ENCOUNTER 2021-04-18 01:02 | Inpatient (IN) | payer MEDICARE ==
[2021-04-18] MEDS ORDERED: SODIUM CHLORIDE 0.9% 1,000 ML IV STA ×2 (01:28→03:03)
[2021-04-18 01:53] LABS: Anisocytosis Moderate; HCT 21.3 % (34.0-46.0); Hypochromasia Moderate; MCH 32.7 pg (25.0-35.0); MCHC 32.6 g/dL (31.0-37.0); MCV 100.1 fL (80.0-100.0); Macrocytosis Moderate; Mean Platelet Volume 11.5; Platelet Count 127 k/uL (150-450); Poikilocytosis Slight; RBC 2.12 m/uL (3.80-5.40); RDW 20.7 % (11.5-15.5)
[2021-04-18 02:09] LABS: INR 1.1 (<1.2); Prothrombin Time 11.9 sec (9.0-12.0)
[2021-04-18 02:10] LABS: Albumin 3.1 g/dL (3.5-5.0); Calcium 10.1 mg/dL (8.4-10.2); Magnesium 2.4 mg/dL (1.6-2.3); Potassium 3.7 mmol/L (3.5-5.1); Total Bilirubin 0.6 mg/dL (0.2-1.3); Total Protein 7.4 g/dL (6.3-8.2)
[2021-04-18 02:11] LABS: HGB 6.9 gm/dL (11.4-16.0)
--- NOTE | 2021-04-18 02:32 | XR ---
EXAMINATION TYPE: XR chest 2V DATE OF EXAM: 04/18/2021 COMPARISON: 03/14/2021 HISTORY: Weakness TECHNIQUE: FINDINGS: There is no heart failure nor confluent pneumonic infiltrate. Costophrenic angles are clear . There is moderate arthritic change in the right shoulder joint with subluxation deformity. There is some spurring in the thoracic spine. There is slight blunting of the costophrenic angles. IMPRESSION : Heart appears slightly increased compared to last exam. There is probably small new pleural effusio ns. No obvious heart failure.
--- NOTE | 2021-04-18 02:43 | CT ---
EXAMINATION TYPE: CT brain wo con DATE OF EXAM: 04/18/2021 COMPARISON: 07/12/2020 HISTORY: weakness CT DLP: 1090.4 mGycm Automated exposure control for dose reduction was used. Images of the brain obtained without contrast. There is moderate diffuse cerebral atrophy. There is no mass effect or midline shift. There is no ingrid dence of intracranial hemorrhage. Calvarium is intact. Skull base is intact. IMPRESSION: Cerebral atrophy. No acute intracranial abnormality. No change.
--- NOTE | 2021-04-18 02:48 | CT ---
EXAMINATION TYPE: CT abdomen pelvis wo con DATE OF EXAM: 04/18/2021 COMPARISON: None HISTORY: Abd pain CT DLP: 517 mGycm Automated exposure control for dose reduction was used. Images obtained from the diaphragm to the floor the pelvis with no contrast. There are bilateral pleural effusions and more on the right side. Heart is enlarged. There is coarse interstitial infiltrate and atelectasis at the lung bases. There are small calcified gallstones. Liver is intact. Spleen is intact. There is no pancreatic mass. The stomach is intact. There is no adrenal mass. Kidneys have normal size. There is no hydronephrosi s. Ureters are not dilated. Bladder distends smoothly. There is 3 cm calcified uterine fibroid. There is no inguinal hernia. There is no free fluid in the pelvis. There is no evidence of inflammatory ch anges of the appendix. There is atheromatous changes in the abdominal aorta and iliac arteries. IMPRESSION: Cholelithiasis. Changes in the chest consistent with congestive heart failure and pleural effusions a nd basilar pulmonary infiltrates. Nonobstructing 3 mm right renal calculus. No renal obstruction. No acute abnormality within the abdom en and pelvis.
[2021-04-18 03:25] LABS: Anisocytosis (M) Present; Eosinophils # (M) 0.26 k/uL (0-0.7); Lymphocytes # (M) 5.37 k/uL (1.0-4.8); Monocytes # (M) 0.26 k/uL (0-1.0); Neutrophils # (M) 7.21 k/uL (1.3-7.7); Neutrophils % (M) 55 %; Nucleated Red Blood Cells 4 /100 WBC (0-0); Polychromasia Present; Total Cells Counted 100; WBC 13.1 k/uL (3.8-10.6)
[2021-04-18 03:26] LABS: RBC Fragments Present
[2021-04-18] MEDS ORDERED: ACETAMINOPHEN TAB 325 MG TAB PO PRN (03:29)
[2021-04-18] MEDS ORDERED: ONDANSETRON 4 MG/2 ML VIAL IVP PRN (03:29)
[2021-04-18] MEDS ORDERED: NALOXONE 0.4 MG/ML 1 ML VIAL IV PRN (03:29)
--- NOTE | 2021-04-18 03:29 | ED ---
General Adult HPI - General Chief complaint: Weakness Stated complaint: Weakness Time Seen by Provider: 04/18/21 01:19 Source: patient, EMS, RN notes reviewed, old records reviewed Mode of arrival: EMS Limitations: no limitations - History of Present Illness Initial comments: Patient is an 89-year-old female with past medical history remarkable for heart failure, hypertension, renal disease, thyroid disorder, COPD not on oxygen at home who presents emergency Department complaining of one-day history of weakness that is generalized. She denies any abdominal pain, nausea, vomiting. Denies any chest pain, shortness of breath. Denies any urinary complaints. We complaint is weakness. She does have a mild runny nose. Denies any difficulty breathing right now. Presents here with department for further evaluation. Patient did fall multiple days ago and is on eliquis for an unknown reason. Denies any headache, lightheadedness. Denies any bleeding. Does have a history of chronic anemia and receives iron infusions for her. Has chronically dark stools. - Related Data Previous Rx's Medication Instructions Recorded Levothyroxine Sodium 125 mcg PO DAILY #30 tablet 07/13/20 Apixaban [Eliquis] 2.5 mg PO BID 30 Days #60 tab 02/26/21 Ferrous Sulfate [Iron (65 MG 325 mg PO BID-W/MEALS #60 tab 03/04/21 Elemental)] Furosemide [Lasix] 40 mg PO DAILY #30 tab 03/04/21 Losartan [Cozaar] 25 mg PO DAILY #30 tab 03/04/21 Melatonin 5 mg PO HS PRN #5 tablet 03/04/21 Metoprolol Tartrate [Lopressor] 50 mg PO BID #60 tab 03/04/21 Nitroglycerin Oint [Nitro-Bid Oint] 1 inch TOPICAL TID #20 packet 03/04/21 amLODIPine [Norvasc] 10 mg PO DAILY #30 tab 03/04/21 hydrALAZINE HCL [Apresoline] 25 mg PO BID #60 tab 03/04/21 Sodium Bicarbonate Tab 650 mg PO BID #60 tablet 03/28/21 Allergies Allergy/AdvReac Type Severity Reaction Status Date / Time nadolol [From Corgard] Allergy Nausea & Verified 04/18/21 01:09 Vomiting atorvastatin calcium AdvReac MUSCLE PAIN Verified 04/18/21 01:09 [From Lipitor] Review of Systems ROS Statement: Those systems with pertinent positive or pertinent negative responses have been documented in the HPI. Review of Systems: CONST: Endorses weakness EYES: Denies blurry vision ENT: Denies nasal congestion C/V: Denies Chest pain RESP: Denies shortness of breath GI: Denies abdominal pain : Denies dysuria SKIN: Denies rash. MSK: Denies joint pain. NEURO: Denies headache ROS Other: All systems not noted in ROS Statement are negative. Past Medical History Past Medical History: No Reported History, Heart Failure, Diabetes Mellitus, Hyperlipidemia, Hypertension, Osteoarthritis (OA), Pneumonia, Renal Disease, Thyroid Disorder Additional Past Medical History / Comment(s): NIDDM type II/diet controlled now, hyponatremia, R upper lobe pneumonia, CKD stage , anemia, arthritis bilateral hands/shoulders, occasionally knees with "give out", MRSA L axillae with sepsis History of Any Multi-Drug Resistant Organisms: MRSA Date of last positivie culture/infection: 08/2008 MDRO Source:: axilla Past Surgical History: Breast Surgery, Ear Surgery Additional Past Surgical History / Comment(s): MRSA boil removed left axilla, cysts removed from left breast, cyst removed from forehead, cataracts, right shoulder surgery for rotator cuff, 2017 bronchoscopy/biopsy/BAL, 1991 ear surgery/patch graft-think it was R ear. Past Anesthesia/Blood Transfusion Reactions: No Reported Reaction, Family Hisory of Malignant Hyperthermia Past Psychological History: No Psychological Hx Reported Smoking Status: Never smoker Past Alcohol Use History: None Reported Past Drug Use History: None Reported - Past Family History Father Family Medical History: No Reported History Additional Family Medical History / Comment(s): Father was healthy Mother Family Medical History: No Reported History Additional Family Medical History / Comment(s): Mother lived to be 91 yrs old. General Exam - General Exam Comments Initial Comments: General: Appears in no acute distress. HEAD: Normal with no signs of head trauma. EYES: PERRLA, EOMI, conjunctiva normal, no discharge. ENT: Hearing grossly intact, normal oropharynx. RESPIRATORY: Clear breath sounds bilaterally. No wheezes, rales, or rhonchi. Mildly hypoxic and no increased work of breathing. C/V: Regular rate and rhythm. S1 and S2 auscultated, no edema, peripheral pulses 2+ and intact throughout ABD: Abd is soft, nontender, nondistended. Rectal exam performed in the presence of a staff member. Darker stool, but no gross blood. External hemorrhoid that is uncomplicated is present. EXT: Normal range of motion, no obvious deformity SKIN: No rashes or lesions observed on exposed skin. NEURO: Alert and oriented 4. NIH is 0. GCS is 15. No focal deficits. Limitations: no limitations Course Vital Signs 04/18/21 04/18/21 01:09 02:49 Temperature 98.2 F Pulse Rate 72 Respiratory 22 Rate Blood Pressure 146/69 O2 Sat by Pulse 98 85 L Oximetry Medical Decision Making - Medical Decision Making Based on the patient's presentation and physical exam, I'm concerned for possi ble infectious etiology or cardiopulmonary etiology for her current symptoms. Full obtain a broad workup including CT brain, chest x-ray, CT abdomen and pelvis, abdominal laboratory studies with lactic acid and blood cultures. Urinalysis also be obtained. Patient was in agreement with this plan. Patient will be administered Zofran, fluid bolus. She'll be given Tylenol for pain as well. She was in agreement this plan. EKG showed no signs of acute ischemia. CT brain showed no acute intracranial process. Chest x-ray revealed no acute cardiopulmonary process, with possible small new effusions. Abdomen pelvis CT was done without contrast due to kidney function and revealed a nonobstructing 3 mm right renal calculus with no obstruction. Laboratory studies were remarkable for a macrocytic anemia with a hemoglobin of 6.9. There is a mild leukocytosis of 13.1. Patient is a DEXTER with a creatinine of 2.52 which is above her baseline. AST is mildly elevated 76. Urinalysis is consistent with the UTI with 2+ protein, large amount of leukocyte esterase, 46 wbc's. Stool occult blood is negative. Covid, fluor both negative. On reevaluation, I discussed with the patient that I would like to admitted the hospital for management of her weakness appeared she was in agreement this plan. She'll be continued on IV fluids, 1 unit of packed red blood cells were ordered for symptomatic anemia, and patient will be started on antibiotics. She was in agreement with this plan. I spoke with the admitting team under Dr. Jane of [facility] who accepted the patient. Patient was therefore admitted in stable condition to telemetry bed.Patient was found to be mildly hypoxic on room air, and she states that she is supposed to be on oxygen at home but has not been using it. - Lab Data Result diagrams: 04/18/21 01:38 04/18/21 01:38 Lab Results 04/18/21 04/18/21 04/18/21 Range/Units 01:38 01:38 01:38 WBC 13.1 H (3.8-10.6) k/uL RBC 2.12 L (3.80-5.40) m/uL Hgb 6.9 L* (11.4-16.0) gm/dL Hct 21.3 L (34.0-46.0) % MCV 100.1 H (80.0-100.0) fL MCH 32.7 (25.0-35.0) pg MCHC 32.6 (31.0-37.0) g/dL RDW 20.7 H (11.5-15.5) % Plt Count 127 L (150-450) k/uL MPV 11.5 Neutrophils % (Manual) 55 % Lymphocytes % (Manual) 41 % Monocytes % (Manual) 2 % Eosinophils % (Manual) 2 % Neutrophils # (Manual) 7.21 (1.3-7.7) k/uL Lymphocytes # (Manual) 5.37 H (1.0-4.8) k/uL Monocytes # (Manual) 0.26 (0-1.0) k/uL Eosinophils # (Manual) 0.26 (0-0.7) k/uL Nucleated RBCs 4 H (0-0) /100 WBC Manual Slide Review Performed Polychromasia Present Hypochromasia Moderate Poikilocytosis Slight Anisocytosis Moderate Anisocytosis (manual) Present Macrocytosis Moderate Fragmented RBCs Present PT 11.9 (9.0-12.0) sec INR 1.1 (<1.2) APTT 25.0 (22.0-30.0) sec Sodium 134 L (137-145) mmol/L Potassium 3.7 (3.5-5.1) mmol/L Chloride 102 (98-107) mmol/L Carbon Dioxide 21 L (22-30) mmol/L Anion Gap 11 mmol/L BUN 27 H (7-17) mg/dL Creatinine 2.52 H (0.52-1.04) mg/dL Est GFR (CKD-EPI)AfAm 19 (>60 ml/min/1.73 sqM) Est GFR (CKD-EPI)NonAf 16 (>60 ml/min/1.73 sqM) Glucose 116 H (74-99) mg/dL Plasma Lactic Acid Arnie (0.7-2.0) mmol/L Calcium 10.1 (8.4-10.2) mg/dL Magnesium 2.4 H (1.6-2.3) mg/dL Total Bilirubin 0.6 (0.2-1.3) mg/dL AST 76 H (14-36) U/L ALT 26 (4-34) U/L Alkaline Phosphatase 126 (38-126) U/L Troponin I (0.000-0.034) ng/mL Total Protein 7.4 (6.3-8.2) g/dL Albumin 3.1 L (3.5-5.0) g/dL Lipase 146 (23-300) U/L Stool Occult Blood (Negative) Coronavirus (PCR) (Not Detectd) Influenza Type A RNA (Not Detectd) Influenza Type B (PCR) (Not Detectd) 04/18/21 04/18/21 04/18/21 Range/Units 01:38 01:38 02:11 WBC (3.8-10.6) k/uL RBC (3.80-5.40) m/uL Hgb (11.4-16.0) gm/dL Hct (34.0-46.0) % MCV (80.0-100.0) fL MCH (25.0-35.0) pg MCHC (31.0-37.0) g/dL RDW (11.5-15.5) % Plt Count (150-450) k/uL MPV Neutrophils % (Manual) % Lymphocytes % (Manual) % Monocytes % (Manual) % Eosinophils % (Manual) % Neutrophils # (Manual) (1.3-7.7) k/uL Lymphocytes # (Manual) (1.0-4.8) k/uL Monocytes # (Manual) (0-1.0) k/uL Eosinophils # (Manual) (0-0.7) k/uL Nucleated RBCs (0-0) /100 WBC Manual Slide Review Polychromasia Hypochromasia Poikilocytosis Anisocytosis Anisocytosis (manual) Macrocytosis Fragmented RBCs PT (9.0-12.0) sec INR (<1.2) APTT (22.0-30.0) sec Sodium (137-145) mmol/L Potassium (3.5-5.1) mmol/L Chloride (98-107) mmol/L Carbon Dioxide (22-30) mmol/L Anion Gap mmol/L BUN (7-17) mg/dL Creatinine (0.52-1.04) mg/dL Est GFR (CKD-EPI)AfAm (>60 ml/min/1.73 sqM) Est GFR (CKD-EPI)NonAf (>60 ml/min/1.73 sqM) Glucose (74-99) mg/dL Plasma Lactic Acid Arnie 1.4 (0.7-2.0) mmol/L Calcium (8.4-10.2) mg/dL Magnesium (1.6-2.3) mg/dL Total Bilirubin (0.2-1.3) mg/dL AST (14-36) U/L ALT (4-34) U/L Alkaline Phosphatase (38-126) U/L Troponin I 0.034 (0.000-0.034) ng/mL Total Protein (6.3-8.2) g/dL Albumin (3.5-5.0) g/dL Lipase (23-300) U/L Stool Occult Blood (Negative) Coronavirus (PCR) (Not Detectd) Influenza Type A RNA Not Detected (Not Detectd) Influenza Type B (PCR) Not Detected (Not Detectd) 04/18/21 04/18/21 Range/Units 02:11 03:15 WBC (3.8-10.6) k/uL RBC (3.80-5.40) m/uL Hgb (11.4-16.0) gm/dL Hct (34.0-46.0) % MCV (80.0-100.0) fL MCH (25.0-35.0) pg MCHC (31.0-37.0) g/dL RDW (11.5-15.5) % Plt Count (150-450) k/uL MPV Neutrophils % (Manual) % Lymphocytes % (Manual) % Monocytes % (Manual) % Eosinophils % (Manual) % Neutrophils # (Manual) (1.3-7.7) k/uL Lymphocytes # (Manual) (1.0-4.8) k/uL Monocytes # (Manual) (0-1.0) k/uL Eosinophils # (Manual) (0-0.7) k/uL Nucleated RBCs (0-0) /100 WBC Manual Slide Review Polychromasia Hypochromasia Poikilocytosis Anisocytosis Anisocytosis (manual) Macrocytosis Fragmented RBCs PT (9.0-12.0) sec INR (<1.2) APTT (22.0-30.0) sec Sodium (137-145) mmol/L Potassium (3.5-5.1) mmol/L Chloride (98-107) mmol/L Carbon Dioxide (22-30) mmol/L Anion Gap mmol/L BUN (7-17) mg/dL Creatinine (0.52-1.04) mg/dL Est GFR (CKD-EPI)AfAm (>60 ml/min/1.73 sqM) Est GFR (CKD-EPI)NonAf (>60 ml/min/1.73 sqM) Glucose (74-99) mg/dL Plasma Lactic Acid Arnie (0.7-2.0) mmol/L Calcium (8.4-10.2) mg/dL Magnesium (1.6-2.3) mg/dL Total Bilirubin (0.2-1.3) mg/dL AST (14-36) U/L ALT (4-34) U/L Alkaline Phosphatase (38-126) U/L Troponin I (0.000-0.034) ng/mL Total Protein (6.3-8.2) g/dL Albumin (3.5-5.0) g/dL Lipase (23-300) U/L Stool Occult Blood Negative (Negative) Coronavirus (PCR) Not Detected (Not Detectd) Influenza Type A RNA (Not Detectd) Influenza Type B (PCR) (Not Detectd) - EKG Data -: EKG Interpreted by Me EKG Comments: 12-lead Electrocardiogram Interpretation Note EKG was reviewed and interpreted by myself. 12-lead ECG performed at 0-01 is interpreted by me as revealing normal sinus rhythm at a rate of 64 beats per minute. [place] is normal. NC interval is 180 ms, QRS duration is 100 ms, QTc is 429 ms.. There were no ST or T wave abnormalities to suggest myocardial ischemia or injury. R wave progression across the precordium was satisfactory. By my interpretation this EKG is non-diagnostic for acute ischemia. Disposition Clinical Impression: Weakness, UTI (urinary tract infection), DEXTER (acute kidney injury), Chronic anemia, Symptomatic anemia Disposition: ADMITTED IP TO THIS HOSP Condition: Stable
[2021-04-18 04:58] LABS: Amorphous Sediment,Urine Rare /hpf; Appearance,Urine Cloudy (Clear); Bacteria,Urine Rare /hpf; Bilirubin,Urine Negative (Negative); Blood,Urine Negative (Negative); Color,Urine Yellow; Glucose,Urine (UA) Negative (Negative); Hyaline Casts,Urine 1 /lpf (0-2); Ketones,Urine Negative (Negative); Leukocyte Esterase,Urine Large (Negative); Mucus,Urine Rare /hpf; Nitrite,Urine Negative (Negative); Protein,Urine 2+ (Negative); RBC,Urine 1 /hpf (0-5); Specific Gravity,Urine 1.012 (1.001-1.035); Squamous Epithelial Cell,Urine 1 /hpf (0-4); Urobilinogen,Urine <2.0 mg/dL (<2.0); WBC,Urine 46 /hpf (0-5)
--- NOTE | 2021-04-18 05:08 | P.HPIM ---
History of Present Illness H&P Date: 04/18/21 Chief Complaint: Generalized weakness 89-year-old female with diabetes mellitus controlled without medications, COPD not on home oxygen, CHF, CK D, dementia Patient is unable to provide any meaningful history. She looks pleasant and laughing about every question I asked she makes joke out of it. Grand Daughter at bedside, and she seems like just a happy spirited not taking anything seriously claims that "why the stress" the whole family seems to have poor insight about patient overall condition. However granddaughter mentions that the patient has not been feeling well over the past couple days she reports some occasional coughing but then she felt that her grandma is about to fall to the ground of the time she stands up she is not as strong as she used to be and was suspecting that she might be feeling weak for which she decided to bring her to the hospital for evaluation. There is no further information obtainable at this point, when I asked the patient she denies any changes in her urination denies any chest pain or trouble breathing denies any abdominal pain denies any fevers or chills however again as I mentioned above she does not take my questions seriously. Granddaughter at bedside she's not aware exactly what medications her grandma takes or what the indications are. There is no reported GI bleeding no report of recent hospitalization. In the ED workup showed low blood count of 6.9 with a baseline in the range of 78. There is elevated white count. Occult blood test was negative. Patient has chronic kidney disease and slightly elevated creatinine. CT of the brain was negative for any acute pathology CT of the abdomen suggested some bibasilar pulmonary infiltrates with 3 mm right renal nonobstructing calculi Urine analysis is pending Review of Systems ROS unobtainable: due to mental status Past Medical History Past Medical History: No Reported History, Heart Failure, Diabetes Mellitus, Hyperlipidemia, Hypertension, Osteoarthritis (OA), Pneumonia, Renal Disease, Thyroid Disorder Additional Past Medical History / Comment(s): NIDDM type II/diet controlled now, hyponatremia, R upper lobe pneumonia, CKD stage 11/111, anemia, arthritis bilateral hands/shoulders, occasionally knees with "give out", MRSA L axillae with sepsis History of Any Multi-Drug Resistant Organisms: MRSA Date of last positivie culture/infection: 08/2008 MDRO Source:: axilla Past Surgical History: Breast Surgery, Ear Surgery Additional Past Surgical History / Comment(s): MRSA boil removed left axilla, cysts removed from left breast, cyst removed from forehead, cataracts, right shoulder surgery for rotator cuff, 2017 bronchoscopy/biopsy/BAL, 1991 ear surgery/patch graft-think it was R ear. Past Anesthesia/Blood Transfusion Reactions: No Reported Reaction, Family Hisory of Malignant Hyperthermia Past Psychological History: No Psychological Hx Reported Smoking Status: Never smoker Past Alcohol Use History: None Reported Past Drug Use History: None Reported - Past Family History Father Family Medical History: No Reported History Additional Family Medical History / Comment(s): Father was healthy Mother Family Medical History: No Reported History Additional Family Medical History / Comment(s): Mother lived to be 91 yrs old. Medications and Allergies Home Medications Medication Instructions Recorded Confirmed Type Levothyroxine Sodium 125 mcg PO DAILY #30 tablet 07/13/20 03/28/21 Rx Apixaban [Eliquis] 2.5 mg PO BID 30 Days #60 tab 02/26/21 03/28/21 Rx Ferrous Sulfate [Iron (65 MG 325 mg PO BID-W/MEALS #60 tab 03/04/21 03/28/21 Rx Elemental)] Furosemide [Lasix] 40 mg PO DAILY #30 tab 03/04/21 03/28/21 Rx Losartan [Cozaar] 25 mg PO DAILY #30 tab 03/04/21 03/28/21 Rx Melatonin 5 mg PO HS PRN #5 tablet 03/04/21 03/28/21 Rx Metoprolol Tartrate [Lopressor] 50 mg PO BID #60 tab 03/04/21 03/28/21 Rx Nitroglycerin Oint [Nitro-Bid Oint] 1 inch TOPICAL TID #20 packet 03/04/21 03/28/21 Rx amLODIPine [Norvasc] 10 mg PO DAILY #30 tab 03/04/21 03/28/21 Rx hydrALAZINE HCL [Apresoline] 25 mg PO BID #60 tab 03/04/21 03/28/21 Rx Sodium Bicarbonate Tab 650 mg PO BID #60 tablet 03/28/21 Rx Allergies Allergy/AdvReac Type Severity Reaction Status Date / Time nadolol [From Corgard] Allergy Nausea & Verified 04/18/21 01:09 Vomiting atorvastatin calcium AdvReac MUSCLE PAIN Verified 04/18/21 01:09 [From Lipitor] Physical Exam Vitals: Vital Signs Temp Pulse Resp BP Pulse Ox 04/18/21 02:49 85 L 04/18/21 01:09 98.2 F 72 22 146/69 98 Intake and Output 04/17/21 04/17/21 04/18/21 14:59 22:59 06:59 Other: Weight 56.699 kg Constitutional: No acute distress, conversant, pleasant Eyes: Anicteric sclerae, moist conjunctiva, Pupils equal round reactive to light ENMT: NC/AT Oropharynx clear, no erythema, or exudates Neck: Supple, no masses, or JVD No carotid bruits No thyromegaly Lungs: Clear to auscultation Clear to percussion Normal respiratory effort, no accessory muscle use Cardiovascular: Heart regular in rate and rhythm, No murmurs, gallops, or rubs No peripheral edema Abdominal: Soft Discomfort to deep palpation of the suprapubic region, no guarding, rebound or rigidity Abdomen moving with respiration Normoactive bowel sounds No hepatomegaly, No splenomegaly No palpable mass No abdominal wall hernia noted Skin: Normal temperature, tone, texture, turgor No induration No subcutaneous nodules No rash, lesions No ulcers Extremities: No digital cyanosis No clubbing Pedal pulses intact and symmetrical Radial pulses intact and symmetrical No calf tenderness Psychiatric: Alert and oriented to person, place Appropriate affect fair judgement Neuro Muscles Strength 4/5 in all 4 extremities Sensation to light touch grossly present throughout Cranial nerves II-XII grossly intact, hard of hearing No focal sensory deficits Lymphatics: no palpable cervical or supraclavicular , or inguinal lymph nodes Results CBC & Chem 7: 04/18/21 01:38 04/18/21 01:38 Labs: Abnormal Lab Results - Last 24 Hours (Table) 04/18/21 04/18/21 04/18/21 Range/Units 01:38 01:38 04:00 WBC 13.1 H (3.8-10.6) k/uL RBC 2.12 L (3.80-5.40) m/uL Hgb 6.9 L* (11.4-16.0) gm/dL Hct 21.3 L (34.0-46.0) % MCV 100.1 H (80.0-100.0) fL RDW 20.7 H (11.5-15.5) % Plt Count 127 L (150-450) k/uL Lymphocytes # (Manual) 5.37 H (1.0-4.8) k/uL Nucleated RBCs 4 H (0-0) /100 WBC Sodium 134 L (137-145) mmol/L Carbon Dioxide 21 L (22-30) mmol/L BUN 27 H (7-17) mg/dL Creatinine 2.52 H (0.52-1.04) mg/dL Glucose 116 H (74-99) mg/dL Magnesium 2.4 H (1.6-2.3) mg/dL AST 76 H (14-36) U/L Albumin 3.1 L (3.5-5.0) g/dL Urine Appearance Cloudy H (Clear) Urine Protein 2+ H (Negative) Ur Leukocyte Esterase Large H (Negative) Urine WBC 46 H (0-5) /hpf Amorphous Sediment Rare H (None) /hpf Urine Bacteria Rare H (None) /hpf Urine Mucus Rare H (None) /hpf Assessment and Plan Assessment: Generalized weakness rule out underlying infectious process Possible pneumonia UA is pending Follow-up cultures Start patient on Rocephin and azithromycin to cover for community-acquired pneumonia Tylenol for fever Monitor vital signs Acute on chronic anemia No evidence of GI bleeding 1 unit blood transfusion Nonobstructing right renal calculi, consider outpatient follow-up PT evaluation Fall precautions Chronic conditions diabetes mellitus controlled with diet of medications COPD not on home oxygen currently compensated History of congestive heart failure Dementia Verify home medications DVT prophylaxis patient on Eliquis for unknown reason, possibly history of A. fib Full code Anticipated length of stay less than 2 midnights
[2021-04-18] MEDS: LEVOTHYROXINE 125 MCG TAB PO SCH (06:47)
[2021-04-18] MEDS: SODIUM BICARBONATE TAB 650 MG TAB PO SCH ×2 (09:50→22:44)
[2021-04-18] MEDS: METOPROLOL TARTRATE 50 MG TAB PO SCH ×2 (09:50→22:44)
[2021-04-18] MEDS: amLODIPine 10 MG TAB PO SCH (09:51)
[2021-04-18] MEDS: AZITHROMYCIN 500 MG TAB PO SCH (09:51)
[2021-04-18] MEDS: APIXABAN 2.5 MG TABLET PO SCH ×2 (09:51→22:44)
[2021-04-18] MEDS: FUROSEMIDE 20 MG TAB PO SCH ×2 (09:52→19:26)
--- NOTE | 2021-04-18 11:02 | P.CNPUL ---
History of Present Illness Consult date: 04/18/21 Requesting physician: Horace Jane Reason for consult: hypoxemia, abnormal CXR/CT Chief complaint: Generalized weakness, falls, shortness of breath History of present illness: This is a very pleasant 89-year-old female patient with a history of dementia, chronic kidney disease stage III, chronic anemia, hypertension, hyperlipidemia, diabetes mellitus, hypothyroidism, diastolic congestive heart failure. Echocardiogram from February 2021 revealed preserved left ventricular systolic function with ejection fraction 55-60%. Moderately enlarged right ventricle. Moderate pulmonary hypertension. She had presented to the emergency room yesterday with complaints of generalized weakness. Chest x-ray revealed slight cardiomegaly. Bilateral effusions. White count 13.1. Hemoglobin 6.9. Platelet count 127. Sodium 134. Potassium 3.7. BUN 27. Creatinine 2.52. Glucose 116. AST 76. ALT 26. ProBNP 9640. Troponin 0.034. Urinalysis with large leukocyte esterase and rare bacteria. Stool for occult blood is negative. Coronavirus by PCR negative. Influenza A and B negative. The patient is seen today in the emergency room. She is awake and alert. Maintain O2 saturations in the 90s on 2 L/m per nasal cannula. Afebrile. Hemodynamically stable. She has somewhat of a poor historian. She was given a liter of fluid and is on 0.9 normal saline at 100 ML's per hour. She also received 1 unit of packed red blood cells. There is a question of possible falls at home as well. The patient is on Eliquis, previous history of atrial fibrillation. Currently in sinus rhythm. She was recently admitted for similar episode of anemia without acute GI blood loss. Hemoglobin at that time was 6.9. She did not receive a blood transfusion. Computed tomography scan of the abdomen and pelvis reveals evidence of cholelithiasis. Changes of the chest consistent with congestive heart failure and pleural effusions and basilar pulmonary infiltrates. No acute abnormality within the abdomen and pelvis. Computed tomography scan of the brain revealed no acute intracranial abnormality. Review of Systems ROS unobtainable: due to mental status Past Medical History Past Medical History: No Reported History, Heart Failure, Diabetes Mellitus, Hyperlipidemia, Hypertension, Osteoarthritis (OA), Pneumonia, Renal Disease, Thyroid Disorder Additional Past Medical History / Comment(s): NIDDM type II/diet controlled now, hyponatremia, R upper lobe pneumonia, CKD stage , anemia, arthritis bilateral hands/shoulders, occasionally knees with "give out", MRSA L axillae with sepsis History of Any Multi-Drug Resistant Organisms: MRSA Date of last positivie culture/infection: 08/2008 MDRO Source:: axilla Past Surgical History: Breast Surgery, Ear Surgery Additional Past Surgical History / Comment(s): MRSA boil removed left axilla, cysts removed from left breast, cyst removed from forehead, cataracts, right shoulder surgery for rotator cuff, 2016 bronchoscopy/biopsy/BAL, 1991 ear surgery/patch graft-think it was R ear. Past Anesthesia/Blood Transfusion Reactions: No Reported Reaction, Family Hisory of Malignant Hyperthermia Past Psychological History: No Psychological Hx Reported Smoking Status: Never smoker Past Alcohol Use History: None Reported Past Drug Use History: None Reported - Past Family History Father Family Medical History: No Reported History Additional Family Medical History / Comment(s): Father was healthy Mother Family Medical History: No Reported History Additional Family Medical History / Comment(s): Mother lived to be 91 yrs old. Medications and Allergies Home Medications Medication Instructions Recorded Confirmed Type Levothyroxine Sodium 125 mcg PO DAILY #30 tablet 07/13/20 04/18/21 Rx Apixaban [Eliquis] 2.5 mg PO BID 30 Days #60 tab 02/26/21 04/18/21 Rx Ferrous Sulfate [Iron (65 MG 325 mg PO BID-W/MEALS #60 tab 03/04/21 04/18/21 Rx Elemental)] Furosemide [Lasix] 40 mg PO DAILY #30 tab 03/04/21 04/18/21 Rx Losartan [Cozaar] 25 mg PO DAILY #30 tab 03/04/21 04/18/21 Rx Melatonin 5 mg PO HS PRN #5 tablet 03/04/21 04/18/21 Rx Metoprolol Tartrate [Lopressor] 50 mg PO BID #60 tab 03/04/21 04/18/21 Rx Nitroglycerin Oint [Nitro-Bid Oint] 1 inch TOPICAL TID #20 packet 03/04/2104/09 Rx amLODIPine [Norvasc] 10 mg PO DAILY #30 tab 03/04/21 04/18/21 Rx hydrALAZINE HCL [Apresoline] 25 mg PO BID #60 tab 03/04/21 04/18/21 Rx Sodium Bicarbonate Tab 650 mg PO BID #60 tablet 03/28/21 04/18/21 Rx Allergies Allergy/AdvReac Type Severity Reaction Status Date / Time nadolol [From Corgard] Allergy Nausea & Verified 04/18/21 08:22 Vomiting atorvastatin calcium AdvReac MUSCLE PAIN Verified 04/18/21 08:22 [From Lipitor] Physical Exam Vitals: Vital Signs Temp Pulse Resp BP Pulse Ox 04/18/21 09:59 98.4 F 73 16 148/84 98 04/18/21 09:13 98.4 F 87 20 150/79 96 04/18/21 07:03 98.2 F 73 16 140/60 04/18/21 06:33 98 F 73 16 138/57 04/18/21 06:20 98.2 F 67 16 135/53 04/18/21 02:49 85 L 04/18/21 01:09 98.2 F 72 22 146/69 98 Intake and Output 04/17/21 04/18/21 04/18/21 22:59 06:59 14:59 Intake Total 0 310 Balance 0 310 Intake: Blood Product 0 310 Rc As-1 Unit 0 310 [id number] Other: Weight 56.699 kg GENERAL EXAM: Alert, presently confused 89-year-old female patient, on 2 L nasal cannula, comfortable in no apparent distress. HEAD: Normocephalic. EYES: Normal reaction of pupils, equal size. NOSE: Clear with pink turbinates. THROAT: No erythema or exudates. NECK: No masses, no JVD. CHEST: No chest wall deformity. LUNGS: Equal air entry with faint crackles in the posterior bases. CVS: S1 and S2 normal with no audible murmur, regular rhythm. ABDOMEN: No hepatosplenomegaly, normal bowel sounds, no guarding or rigidity. SPINE: No scoliosis or deformity SKIN: No rashes CENTRAL NERVOUS SYSTEM: No focal deficits, tone is normal in all 4 extremities. EXTREMITIES: There is no peripheral edema. No clubbing, no cyanosis. Peripheral pulses are intact. Results - Laboratory Findings CBC and BMP: 04/18/21 01:38 04/18/21 01:38 PT/INR, D-dimer PT 11.9 sec (9.0-12.0) 04/18/21 01:38 INR 1.1 (<1.2) 04/18/21 01:38 Abnormal lab findings: Abnormal Labs 04/18/21 04/18/21 04/18/21 01:38 01:38 03:31 WBC 13.1 H RBC 2.12 L Hgb 6.9 L* Hct 21.3 L MCV 100.1 H RDW 20.7 H Plt Count 127 L Lymphocytes # (Manual) 5.37 H Nucleated RBCs 4 H Sodium 134 L Carbon Dioxide 21 L BUN 27 H Creatinine 2.52 H Glucose 116 H Magnesium 2.4 H AST 76 H Albumin 3.1 L Urine Appearance Urine Protein Ur Leukocyte Esterase Urine WBC Amorphous Sediment Urine Bacteria Urine Mucus Crossmatch See Detail 04/18/21 04:00 WBC RBC Hgb Hct MCV RDW Plt Count Lymphocytes # (Manual) Nucleated RBCs Sodium Carbon Dioxide BUN Creatinine Glucose Magnesium AST Albumin Urine Appearance Cloudy H Urine Protein 2+ H Ur Leukocyte Esterase Large H Urine WBC 46 H Amorphous Sediment Rare H Urine Bacteria Rare H Urine Mucus Rare H Crossmatch - Diagnostic Findings Chest x-ray: image reviewed Assessment and Plan Assessment: 1 Generalized weakness with falls secondary to acute on chronic anemia with presenting hemoglobin 6.9 on the receiving a unit of packed red blood cells and stool for occult blood negative. 2 Acute hypoxemic respiratory failure secondary to acute exacerbation of diastolic congestive heart failure with bilateral effusions 3 Chronic anemia with recent admission last month for anemia with a hemoglobin of 6.6. Did not receive transfusion. Hemoglobin on 04/04/2021 was 7.0. 4 History of falls, the patient is on Eliquis. CT scan of the brain revealed no acute abnormalities 5 History of atrial fibrillation, anticoagulated with Eliquis 6 History of non-ST segment elevation myocardial infarction 7 Hypertension 8 Hypothyroidism 9 Diabetes mellitus 10 Chronic stage III kidney disease secondary to diabetes mellitus 11 Glaucoma 12 Bilateral carotid disease with 50-70% stenosis of the left, 30-40% stenosis of the right 13 Dementia 14 Poor overall functional performance based on the above-mentioned multiple c omorbidities Plan: The patient was seen and evaluated Chest x-ray, CAT scans and labs reviewed The patient is receiving a unit of packed red blood cells The patient had 1 L of fluid and 0.9 NS at 100 ML's per hour We'll decrease the IV fluids to KVO Gently diurese with Lasix 20 mg by mouth twice a day Need to evaluate the risk/benefit of maintaining Eliquis Recent frequent admissions, may need ECF placement We will continue to follow and make further recommendations based on her clinical status I, the cosigning physician, performed a history & physical examination of the p atient. Lungs sounds with crackles in the bilateral bases right greater than left. Maintaining good O2 saturations in the 90s on 2 L/m per nasal cannula. I discussed the assessment and plan of care with my nurse practitioner, Gwendolyn Hernandez. I attest to the above consultation as dictated by her. Time with Patient: Greater than 30
[2021-04-19] MEDS: LEVOTHYROXINE 125 MCG TAB PO SCH (06:09)
[2021-04-19] MEDS: APIXABAN 2.5 MG TABLET PO SCH ×2 (08:17→20:37)
[2021-04-19] MEDS: SODIUM BICARBONATE TAB 650 MG TAB PO SCH ×2 (08:17→20:37)
[2021-04-19] MEDS: METOPROLOL TARTRATE 50 MG TAB PO SCH ×2 (08:17→20:37)
[2021-04-19] MEDS: AZITHROMYCIN 500 MG TAB PO SCH (08:17)
[2021-04-19] MEDS: amLODIPine 10 MG TAB PO SCH (08:17)
[2021-04-19] MEDS: FUROSEMIDE 20 MG TAB PO SCH ×2 (08:17→17:03)
[2021-04-19 09:54] LABS: African American GFR (CKD) 22.3 (60.0-200.0); Albumin/Globulin Ratio 0.75 (1.60-3.17); Anion Gap 14.9 mmol/L (10.00-18.00); BUN/Creat Ratio 12.05 Ratio (12.00-20.00); Blood Urea Nitrogen 26.5 mg/dL (9.0-27.0); Calcium 9.5 mg/dL (8.7-10.3); Carbon Dioxide 19.1 mmol/L (20.0-27.5); Magnesium 2.3 mg/dL (1.5-2.4); Non-African American GFR(CKD) 19.2 (60.0-200.0); Potassium 3.6 mmol/L (3.5-5.5); Total Bilirubin 0.3 mg/dL (0.30-1.20)
--- NOTE | 2021-04-19 12:06 | P.PN ---
Subjective Progress Note Date: 04/19/21 Principal diagnosis: confusion Patient is confused, taking her oxygen off and walking around the room. She is not cooperative with her care. No fevers, no overnight events. Objective - Vital Signs Vital signs: Vital Signs Temp 97.8 F 04/19/21 08:11 Pulse 79 04/19/21 08:11 Resp 17 04/19/21 08:11 BP 161/68 04/19/21 08:11 Pulse Ox 97 04/19/21 08:11 Intake & Output 04/18/21 04/19/21 04/19/21 18:59 06:59 18:59 Intake Total 310 3500 Balance 310 3500 Weight 56.699 kg Intake: Oral 3500 Blood Product 310 Rc As-1 Unit 310 [id number] Other: Voiding Method Bedside Commode Bedside Commode # Voids 1 1 - Exam Constitutional: No acute distress Eyes:Anicteric sclerae, moist conjunctiva, no lid-lag, PERRLA, ENMT: Oropharynx clear, no erythema, exudates Neck: Supple, FROM, no masses, or JVD, No carotid bruits, No thyromegaly Lungs: Clear to auscultation, Clear to percussion, Normal respiratory effort, no accessory muscle use Cardiovascular: Heart regular in rate and rhythm, No murmurs, gallops, or rubs, No peripheral edema Abdominal: Soft, Nontender, no guarding, rebound or rigidity, Normoactive bowel sounds, No hepatomegaly, No splenomegaly, No palpable mass Skin: Normal temperature, tone, texture, turgor, no induration, No subcutaneous nodules, No rash, lesions, No ulcers Extremities: No digital cyanosis, No clubbing, Pedal pulses intact and symmetrical, Radial pulses intact and symmetrical, No calf tenderness Psychiatric: Alert and oriented to person only Neuro: general weakness - Labs CBC & Chem 7: 04/18/21 01:38 04/19/21 06:03 Labs: Abnormal Lab Results - Last 24 Hours (Table) 04/18/21 04/19/21 Range/Units 01:38 06:03 Sodium 133 L (135-145) mmol/L Carbon Dioxide 19.1 L (20.0-27.5) mmol/L Creatinine 2.2 H (0.6-1.5) mg/dL Est GFR (CKD-EPI)AfAm 22.3 L (60.0-200.0) Est GFR (CKD-EPI)NonAf 19.2 L (60.0-200.0) AST 69 H (13-35) U/L Albumin 3.0 L (3.8-4.9) g/dL Globulin 4.0 H (1.6-3.3) g/dL Albumin/Globulin Ratio 0.75 L (1.60-3.17) g/dL Procalcitonin 0.58 H (0.02-0.09) ng/mL Microbiology - Last 24 Hours (Table) 04/18/21 01:05 Blood Culture - Preliminary Blood No Growth after 24 hours 04/18/21 01:10 Blood Culture - Preliminary Blood No Growth after 24 hours 04/18/21 04:00 Urine Culture - Preliminary Urine,Voided Assessment and Plan Plan: Generalized weakness likely sec to combination of anemia and infection (pneumonia and UTI) and acute exacerbation of diastolic congestive heart failure with bilateral effusions Continue omnicef and zithromax Continue home lasix Follow-up cultures Tylenol for fever PT evaluation Fall precautions Acute on chronic anemia, stool for occult blood negative. No evidence of GI bleeding Need to evaluate the risk/benefit of maintaining Eliquis 1 unit blood transfusion given, follow up hgb Nonobstructing right renal calculi, consider outpatient follow-up History of atrial fibrillation, anticoagulated with Eliquis Chronic conditions diabetes mellitus controlled with diet of medications COPD not on home oxygen currently compensated CKD 3 Dementia Adult failure to thrive May need placement. DVT prophylaxis patient on Eliquis for unknown reason, possibly history of A. fib
[2021-04-19] MEDS: CEFDINIR 300 MG CAP PO SCH (12:55)
[2021-04-19 14:46] LABS: HCT 26.1 % (37.2-46.3); HGB 8.1 g/dL (12.0-15.0); MCH 29.9 pg (27.0-32.0); MCV 96.3 fL (80.0-97.0); NRBC Per 100 WBC 5.2 /100 WBCS (0.0-0.0); Platelet Count 112 X 10*3/uL (140-440); RBC 2.71 X 10*6/uL (4.10-5.20); RDW 20.9 % (11.5-14.5); WBC 12.21 X 10*3/uL (4.50-10.00)
[2021-04-19 14:47] LABS: Basophils # (M) 0 X 10*3/uL (0.00-0.10); Eosinophils # (M) 0.12 X 10*3/uL (0.04-0.35); Lymphocytes # (M) 6.11 X 10*3/uL (0.90-5.00); Monocytes # (M) 0.61 X 10*3/uL (0.20-1.00); Neutrophils # (M) 5.37 X 10*3/uL (2.00-8.90); Neutrophils % (M) 44 %; Smudge Cells PRESENT
--- NOTE | 2021-04-19 16:56 | P.NPCON ---
History of Present Illness - Reason for Consult acute renal failure - History of Present Illness Patient is a 89-year-old female with history of COPD CHF, chronic kidney disease NKF stage III with previous creatinine around 1.2 mg/dL in December and February 2021. Patient also had an episode of acute kidney injury in February. Mostly cardiorenal. Serum creatinine had been staying mostly around 1.9-2 mg/dL since then. Patient has been admitted with complaints of increased weakness No significant chest pain shortness of breath fever chills nausea vomiting or diarrhea. Hemoglobin was 6.9 g/dL yesterday. Serum creatinine was 2.5 on admission and decreased to 2.2 today. Currently maintained on oral Lasix 20 mg twice a day [place]anc blood pressure is not low Voiding in a bedside commode Review of Systems As per HPI, other systems negative Past Medical History Past Medical History: No Reported History, Heart Failure, Diabetes Mellitus, Hyperlipidemia, Hypertension, Osteoarthritis (OA), Pneumonia, Renal Disease, Thyroid Disorder Additional Past Medical History / Comment(s): NIDDM type II/diet controlled now, hyponatremia, R upper lobe pneumonia, CKD stage 11111, anemia, arthritis bilateral hands/shoulders, occasionally knees with "give out", MRSA L axillae with sepsis History of Any Multi-Drug Resistant Organisms: MRSA Date of last positivie culture/infection: 08/2008 MDRO Source:: axilla Past Surgical History: Breast Surgery, Ear Surgery Additional Past Surgical History / Comment(s): MRSA boil removed left axilla, cysts removed from left breast, cyst removed from forehead, cataracts, right shoulder surgery for rotator cuff, 2017 bronchoscopy/biopsy/BAL, 1991 ear heike timmy/patch graft-think it was R ear. Past Anesthesia/Blood Transfusion Reactions: No Reported Reaction, Family Hisory of Malignant Hyperthermia Past Psychological History: No Psychological Hx Reported Smoking Status: Never smoker Past Alcohol Use History: None Reported Past Drug Use History: None Reported - Past Family History Father Family Medical History: No Reported History Additional Family Medical History / Comment(s): Father was healthy Mother Family Medical History: No Reported History Additional Family Medical History / Comment(s): Mother lived to be 91 yrs old. Medications and Allergies Home Medications Medication Instructions Recorded Confirmed Type Levothyroxine Sodium 125 mcg PO DAILY #30 tablet 07/13/20 04/18/21 Rx Apixaban [Eliquis] 2.5 mg PO BID 30 Days #60 tab 02/26/21 04/18/21 Rx Ferrous Sulfate [Iron (65 MG 325 mg PO BID-W/MEALS #60 tab 03/04/21 04/18/21 Rx Elemental)] Furosemide [Lasix] 40 mg PO DAILY #30 tab 03/04/21 04/18/21 Rx Losartan [Cozaar] 25 mg PO DAILY #30 tab 03/04/21 04/18/21 Rx Melatonin 5 mg PO HS PRN #5 tablet 03/04/21 04/18/21 Rx Metoprolol Tartrate [Lopressor] 50 mg PO BID #60 tab 03/04/21 04/18/21 Rx Nitroglycerin Oint [Nitro-Bid Oint] 1 inch TOPICAL TID #20 packet 03/04/21 04/18/21 Rx amLODIPine [Norvasc] 10 mg PO DAILY #30 tab 03/04/21 04/18/21 Rx hydrALAZINE HCL [Apresoline] 25 mg PO BID #60 tab 03/04/21 04/18/21 Rx Sodium Bicarbonate Tab 650 mg PO BID #60 tablet 03/28/21 04/18/21 Rx Allergies Allergy/AdvReac Type Severity Reaction Status Date / Time nadolol [From Corgard] Allergy Nausea & Verified 04/18/21 08:22 Vomiting atorvastatin calcium AdvReac MUSCLE PAIN Verified 04/18/21 08:22 [From Lipitor] Physical Exam Vitals: Vital Signs Temp Pulse Pulse Resp BP BP Pulse Ox 04/19/21 14:00 97.4 F L 70 21 154/78 98 04/19/21 08:11 97.8 F 79 17 161/68 97 04/19/21 07:10 79 18 04/19/21 02:41 97.6 F 79 18 161/70 96 04/18/21 21:45 79 18 04/18/21 21:37 98.2 F 04/18/21 21:25 97.9 F 74 16 152/54 93 L 04/18/21 19:23 98.6 F 67 18 138/81 94 L Intake and Output 04/19/21 04/19/21 04/19/21 06:59 14:59 22:59 Intake Total 3500 Balance 3500 Intake: Oral 3500 Other: Voiding Method Bedside Commode # Voids 1 1 Agent is sleeping but arousable. She is comfortable. Not in any acute distress. Patient does not communicate much. Examination of the heart S1 and S2 Examination lungs bilateral breath sounds are heard Abdomen is soft nontender Examination of lower extremities shows no significant edema. Results - Lab Results Most recent lab results Calcium 9.5 mg/dL (8.7-10.3) 04/19/21 06:03 Magnesium 2.3 mg/dL (1.5-2.4) 04/19/21 06:03 04/19/21 06:03 04/19/21 06:03 Assessment and Plan Assessment: 1. Acute kidney injury, nonoliguric mostly ATN secondary to severe anemia. Renal function has improved from yesterday. Continue with oral Lasix. Ultrasound in February did not show any hydronephrosis however patient had bladder distention at that time. UA shows 2+ protein no blood is noted 2. Recent acute kidney injury about 5 weeks ago, mostly cardiorenal. Serum creatinine stayed at about 1.9-2 mg/dL 3. Chronic kidney disease NKF stage III with serum creatinine about 1.2 in December 2020. Patient is noted to have proteinuria with no history of diabetes we'll check baseline serologies to rule out any underlying glomerulonephritis. 4. History of urine retention on last admission with distended bladder noted on ultrasound on 02/26/2021 5. chronic diastolic CHF echocardiogram showed ejection fraction 55-60% on 02/25/2021 with moderately dilated left atrium and mild to moderate tricuspid regurg with moderate pulmonary hypertension 6. Anemia with no active GI bleeding noted area and check iron profile rule out iron deficiency. 7. Mild metabolic acidosis associated with acute kidney injury, maintained on oral sodium bicarb Plan: Continue with oral Lasix Check bladder scan and rule out urine retention Check iron profile Check stool for occult blood Check baseline serologies. Add Aranesp continue with oral sodium bicarb
[2021-04-19] MEDS ORDERED: DARBEPOETIN ALFA 40 MCG/0.4 ML SYRINGE SQ SCH (20:00)
[2021-04-19 23:06] LABS: % Iron Saturation 27.69 (12.00-45.00)
[2021-04-19 23:16] LABS: Hepatitis B Surface Antigen Nonreactive (Nonreactive); Hepatitis C IgG Antibody Nonreactive (Nonreactive)
[2021-04-19 23:17] LABS: Hepatitis B Surface AB- Quant 3.5 mIU/mL; Hepatitis B Surface Antibody Nonreactive (Nonreactive)
[2021-04-20 04:08] LABS: Anti-DNA, DS unit <1.0 IU/mL; DNA Double-Stranded NEGATIVE (NEGATIVE)
[2021-04-20] MEDS: LEVOTHYROXINE 125 MCG TAB PO SCH (06:09)
[2021-04-20] MEDS: FUROSEMIDE 20 MG TAB PO SCH ×2 (09:06→17:26)
[2021-04-20] MEDS: CEFDINIR 300 MG CAP PO SCH (09:06)
[2021-04-20] MEDS: METOPROLOL TARTRATE 50 MG TAB PO SCH ×2 (09:06→22:47)
[2021-04-20] MEDS: SODIUM BICARBONATE TAB 650 MG TAB PO SCH ×2 (09:06→22:47)
[2021-04-20] MEDS: amLODIPine 10 MG TAB PO SCH (09:06)
[2021-04-20] MEDS: AZITHROMYCIN 500 MG TAB PO SCH (09:06)
[2021-04-20] MEDS: APIXABAN 2.5 MG TABLET PO SCH (09:07)
[2021-04-20 09:32] LABS: African American GFR (CKD) 23.6 (60.0-200.0); Albumin 2.6 g/dL (3.8-4.9); Albumin/Globulin Ratio 0.74 (1.60-3.17); Anion Gap 11.2 mmol/L (10.00-18.00); BUN/Creat Ratio 12.81 Ratio (12.00-20.00); Blood Urea Nitrogen 26.9 mg/dL (9.0-27.0); Calcium 9.2 mg/dL (8.7-10.3); Carbon Dioxide 22.8 mmol/L (20.0-27.5); Globulin 3.5 g/dL (1.6-3.3); Magnesium 2.3 mg/dL (1.5-2.4); Non-African American GFR(CKD) 20.4 (60.0-200.0); Potassium 3.9 mmol/L (3.5-5.5); Total Bilirubin 0.3 mg/dL (0.30-1.20); Total Protein 6.1 g/dL (6.2-8.2)
[2021-04-20 10:17] LABS: Basophils # (A) 0.06 X 10*3/uL (0.00-0.10); Basophils % (A) 0.6 %; Eosinophils # (A) 0.31 X 10*3/uL (0.04-0.35); Eosinophils % (A) 3.2 %; HCT 22.8 % (37.2-46.3); HGB 7.1 g/dL (12.0-15.0); Immature Grans, Automated 1.8 %; Lymphocytes # (A) 4.46 X 10*3/uL (0.90-5.00); Lymphocytes % (A) 45.6 %; MCH 30.1 pg (27.0-32.0); MCHC 31.1 g/dL (32.0-37.0); MCV 96.6 fL (80.0-97.0); Monocytes # (A) 0.57 X 10*3/uL (0.20-1.00); Monocytes % (A) 5.8 %; NRBC Per 100 WBC 4.6 /100 WBCS (0.0-0.0); Neutrophils # (A) 4.21 X 10*3/uL (1.80-7.70); Platelet Count 94 X 10*3/uL (140-440); RBC 2.36 X 10*6/uL (4.10-5.20); RDW 20.1 % (11.5-14.5); WBC 9.79 X 10*3/uL (4.50-10.00)
--- NOTE | 2021-04-20 11:29 | P.PN ---
Subjective Patient is a 89-year-old female with history of COPD, CHF, CK D stage III with previous creatinine 1.2 mg/dL in December and February 2021. Patient has had an episode of acute kidney injury in February with serum creatinine staying mostly around 1.9-2 mg/dL. Admitted with increased weakness and found to have hemoglobin of 6.9 g/dL and is currently being diuresed with low-dose loop diuretics. Creatinine was 2.5 on admission on 04/18/2019 to Patient is seen for follow-up for acute kidney injury. Renal function has improved with creatinine down to 2.1 from 2.5 on initial admission. Off note patient is noted to have proteinuria and serologies were ordered yesterday which came back as positive ANAs. Other serologies are negative. Objective - Vital Signs Vital signs: Vital Signs Temp 97.5 F L 04/20/21 07:07 Pulse 78 04/20/21 07:07 Resp 17 04/20/21 07:07 BP 133/69 04/20/21 07:07 Pulse Ox 95 04/20/21 07:07 Intake & Output 04/19/21 04/20/21 04/20/21 18:59 06:59 18:59 Intake Total 240 Output Total 900 Balance 240 -900 Intake: Oral 240 Output: Urine 900 Other: Voiding Method Bedside Commode Bedside Commode # Voids 1 1 # Bowel Movements 0 - Exam On examination patient is comfortable awake she is not in any acute distress. She is very hard of hearing. Examination of the heart S1 and S2 Examination lungs bilateral breath sounds are heard Abdomen is soft nontender Examination lower extremity shows no significant edema [employer] exam does not show any significant motor deficits - Labs CBC & Chem 7: 04/20/21 05:59 04/20/21 05:59 Labs: Abnormal Lab Results - Last 24 Hours (Table) 04/19/21 04/19/21 04/19/21 Range/Units 06:03 17:18 17:18 WBC 12.21 H (4.50-10.00) X 10*3/uL RBC 2.71 L (4.10-5.20) X 10*6/uL Hgb 8.1 L (12.0-15.0) g/dL Hct 26.1 L (37.2-46.3) % MCHC 31.0 L (32.0-37.0) g/dL RDW 20.9 H (11.5-14.5) % Plt Count 112 L (140-440) X 10*3/uL Plt Count Comment Absolute Nucleated RBC 0.64 H (0.00-0.00) X 10*3/uL Immature Gran # (0.00-0.04) X 10*3/uL Lymphocytes # (Manual) 6.11 H (0.90-5.00) X 10*3/uL NRBC/100 WBC Diff 5.2 H (0.0-0.0) /100 WBCS Sodium (135-145) mmol/L Creatinine (0.6-1.5) mg/dL Est GFR (CKD-EPI)AfAm (60.0-200.0) Est GFR (CKD-EPI)NonAf (60.0-200.0) Transferrin 186.0 L (204.0-354.0) mg/dL AST (13-35) U/L Total Protein (6.2-8.2) g/dL Albumin (3.8-4.9) g/dL Globulin (1.6-3.3) g/dL Albumin/Globulin Ratio (1.60-3.17) g/dL EVELYN Screen POSITIVE A (NEGATIVE) 04/20/21 04/20/21 Range/Units 05:59 05:59 WBC (4.50-10.00) X 10*3/uL RBC 2.36 L (4.10-5.20) X 10*6/uL Hgb 7.1 L (12.0-15.0) g/dL Hct 22.8 L (37.2-46.3) % MCHC 31.1 L (32.0-37.0) g/dL RDW 20.1 H (11.5-14.5) % Plt Count 94 L (140-440) X 10*3/uL Plt Count Comment DECREASED A Absolute Nucleated RBC 0.45 H (0.00-0.00) X 10*3/uL Immature Gran # 0.18 H (0.00-0.04) X 10*3/uL Lymphocytes # (Manual) (0.90-5.00) X 10*3/uL NRBC/100 WBC Diff 4.6 H (0.0-0.0) /100 WBCS Sodium 133 L (135-145) mmol/L Creatinine 2.1 H (0.6-1.5) mg/dL Est GFR (CKD-EPI)AfAm 23.6 L (60.0-200.0) Est GFR (CKD-EPI)NonAf 20.4 L (60.0-200.0) Transferrin (204.0-354.0) mg/dL AST 60 H (13-35) U/L Total Protein 6.1 L (6.2-8.2) g/dL Albumin 2.6 L (3.8-4.9) g/dL Globulin 3.5 H (1.6-3.3) g/dL Albumin/Globulin Ratio 0.74 L (1.60-3.17) g/dL EVELYN Screen (NEGATIVE) Microbiology - Last 24 Hours (Table) 04/18/21 01:10 Blood Culture - Preliminary Blood No Growth after 48 hours 04/18/21 01:05 Blood Culture - Preliminary Blood No Growth after 48 hours 04/18/21 04:00 Urine Culture - Final Urine,Voided Assessment and Plan Assessment: 1. Acute kidney injury, nonoliguric mostly ATN secondary to severe anemia. Renal function has improved from yesterday. Continue with oral Lasix. Ultrasound in February did not show any hydronephrosis however patient had bladder distention at that time. UA shows 2+ protein no blood is noted. ANAs positive rule out underlying GN however since renal function has improved and given the advanced age I would be cautious to perform a kidney biopsy. 2. Recent acute kidney injury about 5 weeks ago, mostly cardiorenal. Serum creatinine stayed at about 1.9-2 mg/dL 3. Chronic kidney disease NKF stage III with serum creatinine about 1.2 in December 2020. Patient is noted to have proteinuria with no history of diabetes. Serologies showed positive ANAs. Other serologies are negative serum and urine immunofixation is pending. 4. History of urine retention on last admission with distended bladder noted on ultrasound on 02/26/2021 5. chronic diastolic CHF echocardiogram showed ejection fraction 55-60% on 02/25/2021 with moderately dilated left atrium and mild to moderate tricuspid regurg with moderate pulmonary hypertension 6. Anemia with no active GI bleeding noted area and check iron profile rule out iron deficiency. 7. Mild metabolic acidosis associated with acute kidney injury, maintained on oral sodium bicarb Plan: Continue with oral Lasix Check bladder scan and rule out urine retention. Add Aranesp continue with oral sodium bicarb Follow-up on serum and urine immunofixation Repeat labs in a.m. Patient will need follow-up as outpatient.
--- NOTE | 2021-04-20 16:49 | P.PN ---
Subjective Progress Note Date: 04/20/21 Principal diagnosis: confusion She was sitting in the chair, less confused and more cooperative today. No pain or sob. No fevers. Objective - Vital Signs Vital signs: Vital Signs Temp 97.3 F L 04/20/21 14:00 Pulse 58 L 04/20/21 14:00 Resp 18 04/20/21 14:00 BP 142/62 04/20/21 14:00 Pulse Ox 99 04/20/21 14:00 Intake & Output 04/19/21 04/20/21 04/20/21 18:59 06:59 18:59 Intake Total 240 Output Total 900 Balance 240 -900 Intake: Oral 240 Output: Urine 900 Other: Voiding Method Bedside Commode Bedside Commode # Voids 1 1 # Bowel Movements 0 - Labs CBC & Chem 7: 04/20/21 05:59 04/20/21 05:59 Labs: Abnormal Lab Results - Last 24 Hours (Table) 04/19/21 04/19/21 04/20/21 Range/Units 17:18 17:18 05:59 RBC 2.36 L (4.10-5.20) X 10*6/uL Hgb 7.1 L (12.0-15.0) g/dL Hct 22.8 L (37.2-46.3) % MCHC 31.1 L (32.0-37.0) g/dL RDW 20.1 H (11.5-14.5) % Plt Count 94 L (140-440) X 10*3/uL Plt Count Comment DECREASED A Absolute Nucleated RBC 0.45 H (0.00-0.00) X 10*3/uL Immature Gran # 0.18 H (0.00-0.04) X 10*3/uL NRBC/100 WBC Diff 4.6 H (0.0-0.0) /100 WBCS Sodium (135-145) mmol/L Creatinine (0.6-1.5) mg/dL Est GFR (CKD-EPI)AfAm (60.0-200.0) Est GFR (CKD-EPI)NonAf (60.0-200.0) Transferrin 186.0 L (204.0-354.0) mg/dL AST (13-35) U/L Total Protein (6.2-8.2) g/dL Albumin (3.8-4.9) g/dL Globulin (1.6-3.3) g/dL Albumin/Globulin Ratio (1.60-3.17) g/dL EVELYN Screen POSITIVE A (NEGATIVE) 04/20/21 Range/Units 05:59 RBC (4.10-5.20) X 10*6/uL Hgb (12.0-15.0) g/dL Hct (37.2-46.3) % MCHC (32.0-37.0) g/dL RDW (11.5-14.5) % Plt Count (140-440) X 10*3/uL Plt Count Comment Absolute Nucleated RBC (0.00-0.00) X 10*3/uL Immature Gran # (0.00-0.04) X 10*3/uL NRBC/100 WBC Diff (0.0-0.0) /100 WBCS Sodium 133 L (135-145) mmol/L Creatinine 2.1 H (0.6-1.5) mg/dL Est GFR (CKD-EPI)AfAm 23.6 L (60.0-200.0) Est GFR (CKD-EPI)NonAf 20.4 L (60.0-200.0) Transferrin (204.0-354.0) mg/dL AST 60 H (13-35) U/L Total Protein 6.1 L (6.2-8.2) g/dL Albumin 2.6 L (3.8-4.9) g/dL Globulin 3.5 H (1.6-3.3) g/dL Albumin/Globulin Ratio 0.74 L (1.60-3.17) g/dL EVELYN Screen (NEGATIVE) Microbiology - Last 24 Hours (Table) 04/18/21 01:10 Blood Culture - Preliminary Blood No Growth after 48 hours 04/18/21 01:05 Blood Culture - Preliminary Blood No Growth after 48 hours 04/18/21 04:00 Urine Culture - Final Urine,Voided Assessment and Plan Plan: Generalized weakness likely sec to combination of anemia and infection (pne umonia and UTI) and acute exacerbation of diastolic congestive heart failure with bilateral effusions Continue omnicef and zithromax Continue home lasix Follow-up cultures Tylenol for fever PT evaluation Fall precautions Acute on chronic anemia, stool for occult blood negative. No evidence of GI bleeding, was transfused 1 unit of PRBCs. D/c Eliquis as hgb continues to trend down after the transfusion DEXTER followed by neprhology Bladder scan without urinary retention. Avoid nephrotoxic meds. Nonobstructing right renal calculi, consider outpatient follow-up History of atrial fibrillation, Stable, hold Eliquis Chronic conditions diabetes mellitus controlled with diet of medications COPD not on home oxygen currently compensated CKD 3 Dementia Adult failure to thrive May need placement.
[2021-04-21] MEDS: LEVOTHYROXINE 125 MCG TAB PO SCH (05:39)
[2021-04-21] MEDS: SODIUM BICARBONATE TAB 650 MG TAB PO SCH ×2 (08:20→22:40)
[2021-04-21] MEDS: FUROSEMIDE 20 MG TAB PO SCH ×2 (08:20→15:41)
[2021-04-21] MEDS: amLODIPine 10 MG TAB PO SCH (08:20)
[2021-04-21] MEDS: AZITHROMYCIN 500 MG TAB PO SCH (08:21)
[2021-04-21] MEDS: METOPROLOL TARTRATE 50 MG TAB PO SCH ×2 (08:21→22:40)
[2021-04-21] MEDS: CEFDINIR 300 MG CAP PO SCH (08:21)
[2021-04-21 09:07] LABS: African American GFR (CKD) 23.6 (60.0-200.0); Albumin 2.7 g/dL (3.8-4.9); Albumin/Globulin Ratio 0.79 (1.60-3.17); Anion Gap 11.8 mmol/L (10.00-18.00); BUN/Creat Ratio 14.33 Ratio (12.00-20.00); Blood Urea Nitrogen 30.1 mg/dL (9.0-27.0); Calcium 9.2 mg/dL (8.7-10.3); Carbon Dioxide 22.2 mmol/L (20.0-27.5); Globulin 3.4 g/dL (1.6-3.3); Magnesium 2.4 mg/dL (1.5-2.4); Non-African American GFR(CKD) 20.4 (60.0-200.0); Potassium 4.1 mmol/L (3.5-5.5); Total Bilirubin 0.3 mg/dL (0.30-1.20); Total Protein 6.1 g/dL (6.2-8.2)
[2021-04-21 09:56] LABS: Basophils # (A) 0.06 X 10*3/uL (0.00-0.10); Basophils % (A) 0.7 %; Eosinophils # (A) 0.36 X 10*3/uL (0.04-0.35); HCT 23.3 % (37.2-46.3); HGB 7.2 g/dL (12.0-15.0); Immature Grans, Automated 1.7 %; Lymphocytes # (A) 4.48 X 10*3/uL (0.90-5.00); Lymphocytes % (A) 49.3 %; MCH 30.6 pg (27.0-32.0); MCHC 30.9 g/dL (32.0-37.0); MCV 99.1 fL (80.0-97.0); Monocytes % (A) 5.5 %; NRBC Per 100 WBC 3.7 /100 WBCS (0.0-0.0); Neutrophils # (A) 3.53 X 10*3/uL (1.80-7.70); Neutrophils % (A) 38.8 %; Platelet Count 100 X 10*3/uL (140-440); RBC 2.35 X 10*6/uL (4.10-5.20); RDW 19.4 % (11.5-14.5); WBC 9.08 X 10*3/uL (4.50-10.00)
--- NOTE | 2021-04-21 11:33 | P.PN ---
Subjective Patient is a 89-year-old female with history of COPD, CHF, CK D stage III with previous creatinine 1.2 mg/dL in December and February 2021. Patient has had an episode of acute kidney injury in February with serum creatinine staying mostly around 1.9-2 mg/dL. Admitted with increased weakness and found to have hemoglobin of 6.9 g/dL and is currently being diuresed with low-dose loop diuretics. Creatinine was 2.5 on admission on 04/18/2019 to Patient is seen for follow-up for acute kidney injury. Renal function has improved with creatinine down to 2.1 from 2.5 on initial admission. Off note patient is noted to have proteinuria and serologies were ordered which came back as positive ANAs. Other serologies are negative. Objective - Vital Signs Vital signs: Vital Signs Temp 98.3 F 04/21/21 08:00 Pulse 62 04/21/21 08:00 Resp 15 04/21/21 08:00 BP 148/62 04/21/21 08:00 Pulse Ox 99 04/21/21 08:21 Intake & Output 04/20/21 04/21/21 04/21/21 18:59 06:59 18:59 Output Total 450 350 Balance -450 -350 Output: Urine 350 Post Void Residual 450 Other: Voiding Method Bedside Commode Bedside Commode Bedside Commode # Voids 2 1 # Bowel Movements 1 0 - Exam On examination patient is comfortable awake she is not in any acute distress. She is very hard of hearing. Examination of the heart S1 and S2 Examination lungs bilateral breath sounds are heard Abdomen is soft nontender Examination lower extremity shows no significant edema [employer] exam does not show any significant motor deficits - Labs CBC & Chem 7: 04/21/21 04:39 04/21/21 04:39 Labs: Abnormal Lab Results - Last 24 Hours (Table) 04/20/21 04/21/21 04/21/21 Range/Units 17:00 04:39 04:39 RBC 2.35 L (4.10-5.20) X 10*6/uL Hgb 7.2 L (12.0-15.0) g/dL Hct 23.3 L (37.2-46.3) % MCV 99.1 H (80.0-97.0) fL MCHC 30.9 L (32.0-37.0) g/dL RDW 19.4 H (11.5-14.5) % Plt Count 100 L (140-440) X 10*3/uL Plt Count Comment DECREASED A Absolute Nucleated RBC 0.34 H (0.00-0.00) X 10*3/uL Immature Gran # 0.15 H (0.00-0.04) X 10*3/uL Eosinophils # 0.36 H (0.04-0.35) X 10*3/uL NRBC/100 WBC Diff 3.7 H (0.0-0.0) /100 WBCS Sodium 133 L (135-145) mmol/L BUN 30.1 H (9.0-27.0) mg/dL Creatinine 2.1 H (0.6-1.5) mg/dL Est GFR (CKD-EPI)AfAm 23.6 L (60.0-200.0) Est GFR (CKD-EPI)NonAf 20.4 L (60.0-200.0) AST 61 H (13-35) U/L Total Protein 6.1 L (6.2-8.2) g/dL Albumin 2.7 L (3.8-4.9) g/dL Globulin 3.4 H (1.6-3.3) g/dL Albumin/Globulin Ratio 0.79 L (1.60-3.17) g/dL U Random Total Protein 79.8 H (0.0-13.5) mg/dL Microbiology - Last 24 Hours (Table) 04/18/21 01:05 Blood Culture - Preliminary Blood No Growth after 72 hours 04/18/21 01:10 Blood Culture - Preliminary Blood No Growth after 72 hours Assessment and Plan Assessment: 1. Acute kidney injury, nonoliguric mostly ATN secondary to severe anemia. Re nal function has improved from yesterday. Continue with oral Lasix. Ultrasound in February did not show any hydronephrosis however patient had bladder distention at that time. UA shows 2+ protein no blood is noted. ANAs positive rule out underlying GN however since renal function has improved and given the advanced age I would be cautious to perform a kidney biopsy. 2. Recent acute kidney injury about 5 weeks ago, mostly cardiorenal. Serum creatinine stayed at about 1.9-2 mg/dL 3. Chronic kidney disease NKF stage III with serum creatinine about 1.2 in December 2020. Patient is noted to have proteinuria with no history of diabetes. Serologies showed positive ANAs. Other serologies are negative serum and urine immunofixation is pending. 4. History of urine retention on last admission with distended bladder noted on ultrasound on 02/26/2021 5. chronic diastolic CHF echocardiogram showed ejection fraction 55-60% on 02/25/2021 with moderately dilated left atrium and mild to moderate tricuspid regurg with moderate pulmonary hypertension 6. Anemia with no active GI bleeding noted area and check iron profile rule out iron deficiency. 7. Mild metabolic acidosis associated with acute kidney injury, maintained on oral sodium bicarb Plan: Continue with oral Lasix Add Aranesp continue with oral sodium bicarb Follow-up on serum and urine immunofixation Repeat labs in a.m. Patient will need follow-up as outpatient.
--- NOTE | 2021-04-21 14:04 | P.PN ---
Subjective Progress Note Date: 04/21/21 Principal diagnosis: confusion According to nursing staff patient is requiring 1 person assist to get up to the bedside commode. She is confused and not able to provide a reliable history. Denied having any problems including shortness of breath or pain. No fevers, no overnight events. Objective - Vital Signs Vital signs: Vital Signs Temp 98.3 F 04/21/21 08:00 Pulse 62 04/21/21 08:00 Resp 15 04/21/21 08:00 BP 148/62 04/21/21 08:00 Pulse Ox 99 04/21/21 08:21 Intake & Output 04/20/21 04/21/21 04/21/21 18:59 06:59 18:59 Output Total 450 350 Balance -450 -350 Output: Urine 350 Post Void Residual 450 Other: Voiding Method Bedside Commode Bedside Commode Bedside Commode # Voids 2 1 # Bowel Movements 1 0 - Exam Constitutional: No acute distress Eyes:Anicteric sclerae, moist conjunctiva, no lid-lag, PERRLA, ENMT: Oropharynx clear, no erythema, exudates Neck: Supple, FROM, no masses, or JVD, No carotid bruits, No thyromegaly Lungs: Clear to auscultation, Clear to percussion, Normal respiratory effort, no accessory muscle use Cardiovascular: Heart regular in rate and rhythm, No murmurs, gallops, or rubs, No peripheral edema Abdominal: Soft, Nontender, no guarding, rebound or rigidity, Normoactive bowel sounds, No hepatomegaly, No splenomegaly, No palpable mass Skin: Normal temperature, tone, texture, turgor, no induration, No subcutaneous nodules, No rash, lesions, No ulcers Extremities: No digital cyanosis, No clubbing, Pedal pulses intact and symmetrical, Radial pulses intact and symmetrical, No calf tenderness Psychiatric: Alert and oriented to person only Neuro: general weakness - Labs CBC & Chem 7: 04/21/21 04:39 04/21/21 04:39 Labs: Abnormal Lab Results - Last 24 Hours (Table) 04/20/21 04/21/21 04/21/21 Range/Units 17:00 04:39 04:39 RBC 2.35 L (4.10-5.20) X 10*6/uL Hgb 7.2 L (12.0-15.0) g/dL Hct 23.3 L (37.2-46.3) % MCV 99.1 H (80.0-97.0) fL MCHC 30.9 L (32.0-37.0) g/dL RDW 19.4 H (11.5-14.5) % Plt Count 100 L (140-440) X 10*3/uL Plt Count Comment DECREASED A Absolute Nucleated RBC 0.34 H (0.00-0.00) X 10*3/uL Immature Gran # 0.15 H (0.00-0.04) X 10*3/uL Eosinophils # 0.36 H (0.04-0.35) X 10*3/uL NRBC/100 WBC Diff 3.7 H (0.0-0.0) /100 WBCS Sodium 133 L (135-145) mmol/L BUN 30.1 H (9.0-27.0) mg/dL Creatinine 2.1 H (0.6-1.5) mg/dL Est GFR (CKD-EPI)AfAm 23.6 L (60.0-200.0) Est GFR (CKD-EPI)NonAf 20.4 L (60.0-200.0) AST 61 H (13-35) U/L Total Protein 6.1 L (6.2-8.2) g/dL Albumin 2.7 L (3.8-4.9) g/dL Globulin 3.4 H (1.6-3.3) g/dL Albumin/Globulin Ratio 0.79 L (1.60-3.17) g/dL U Random Total Protein 79.8 H (0.0-13.5) mg/dL Microbiology - Last 24 Hours (Table) 04/18/21 01:05 Blood Culture - Preliminary Blood No Growth after 72 hours 04/18/21 01:10 Blood Culture - Preliminary Blood No Growth after 72 hours Assessment and Plan Plan: Generalized weakness likely sec to combination of anemia and infection (pneumonia and UTI) and acute exacerbation of diastolic congestive heart failure with bilateral effusions Continue omnicef and zithromax Continue home lasix Blood and urine cultures negative, would d/c abx on 04/24 to complete 7 day course Tylenol for fever PT evaluation Fall precautions Acute on chronic anemia, stool for occult blood negative. No evidence of GI bleeding, was transfused 1 unit of PRBCs. D/c Eliquis as hgb continues to trend down after the transfusion Continue to follow hgb, consult hematology DEXTER followed by neprhology Bladder scan without urinary retention. Avoid nephrotoxic meds. Cr plateaued. Nonobstructing right renal calculi, consider outpatient follow-up History of atrial fibrillation, Stable, hold Eliquis Chronic conditions diabetes mellitus controlled with diet of medications COPD not on home oxygen currently compensated CKD 3 Dementia Adult failure to thrive May need placement vs. home PT with 24 hours supervision at home.
[2021-04-22] MEDS: LEVOTHYROXINE 125 MCG TAB PO SCH (05:52)
[2021-04-22] MEDS: METOPROLOL TARTRATE 50 MG TAB PO SCH ×2 (09:04→20:49)
[2021-04-22] MEDS: SODIUM BICARBONATE TAB 650 MG TAB PO SCH ×2 (09:04→20:50)
[2021-04-22] MEDS: amLODIPine 10 MG TAB PO SCH (09:04)
[2021-04-22] MEDS: CEFDINIR 300 MG CAP PO SCH (09:04)
[2021-04-22] MEDS: AZITHROMYCIN 500 MG TAB PO SCH (09:04)
[2021-04-22] MEDS: FUROSEMIDE 20 MG TAB PO SCH ×2 (09:05→16:40)
--- NOTE | 2021-04-22 09:52 | P.PN ---
Subjective Patient is seen in follow-up for acute kidney injury on chronic kidney disease. Creatinine 2.1 yesterday. Denies chest pain or shortness of breath. No edema. Has been voiding. Hemodynamically stable. Vital signs are stable. General: The patient appeared well nourished and normally developed. HEENT: Head exam is unremarkable. LUNGS: Breath sounds decreased. HEART: Rate and Rhythm are regular. ABDOMEN: Soft, no distention. EXTREMITITES: No edema. Objective - Vital Signs Vital signs: Vital Signs Temp 97.7 F 04/22/21 05:36 Pulse 59 L 04/22/21 05:36 Resp 17 04/22/21 05:36 BP 146/69 04/22/21 05:36 Pulse Ox 95 04/22/21 05:36 Intake & Output 04/21/21 04/22/21 04/22/21 18:59 06:59 18:59 Intake Total 540 Output Total 600 Balance 540 -600 Intake: Oral 540 Output: Urine 600 Other: Voiding Method Bedside Commode Bedside Commode Bedside Commode Diaper # Voids 2 1 # Bowel Movements 0 - Labs CBC & Chem 7: 04/21/21 04:39 04/21/21 04:39 Labs: Abnormal Lab Results - Last 24 Hours (Table) 04/18/21 04/21/21 Range/Units 01:38 04:39 RBC 2.35 L (4.10-5.20) X 10*6/uL Hgb 7.2 L (12.0-15.0) g/dL Hct 23.3 L (37.2-46.3) % MCV 99.1 H (80.0-97.0) fL MCHC 30.9 L (32.0-37.0) g/dL RDW 19.4 H (11.5-14.5) % Plt Count 100 L (140-440) X 10*3/uL Plt Count Comment DECREASED A Absolute Nucleated RBC 0.34 H (0.00-0.00) X 10*3/uL Immature Gran # 0.15 H (0.00-0.04) X 10*3/uL Eosinophils # 0.36 H (0.04-0.35) X 10*3/uL NRBC/100 WBC Diff 3.7 H (0.0-0.0) /100 WBCS Vitamin B12 >2000.0 H (200.0-944.0) pg/mL Microbiology - Last 24 Hours (Table) 04/18/21 01:10 Blood Culture - Preliminary Blood No Growth after 96 hours 04/18/21 01:05 Blood Culture - Preliminary Blood No Growth after 96 hours Assessment and Plan Plan: Assessment: 1. Acute kidney injury secondary to ATN secondary to acute blood loss anemia. Creatinine 2.1 yesterday. UA with 2+ proteinuria. So far serologies negative except positive EVELYN. No hydronephrosis noted on CAT scan. 2. Chronic kidney disease stage IIIB with baseline creatinine near 1.5 secondary to nephrosclerosis. 3. 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 4. Acute blood loss anemia status post blood transfusion this admission. Iron replete. Component of chronic kidney disease. On Aranesp. 5. Hypertension with chronic kidney disease. Stable. 6. Metabolic acidosis secondary to chronic kidney disease maintained on oral bicarbonate. Plan: Maintain oral Lasix. Follow-up pending serologies. Continue to monitor renal function and urine output. Due to patient's advanced age and comorbidities, would hold off on kidney biopsy. Avoid nephrotoxins. Patient will need to follow-up outpatient 1 week post discharge.
--- NOTE | 2021-04-22 10:20 | P.PN ---
<Mateusz Collazo - Last Filed: 04/22/21 15:52> Subjective Progress Note Date: 04/22/21 Hospital course: Patient is a very pleasant 89-year-old female with a past medical history of a dvanced dementia with baseline mentation alert to self only, chronic diastolic heart failure, hypertension, hyperlipidemia, hypothyroidism, chronic kidney disease stage III, and [id number] diabetes mellitus. Per documentation in chart patient was previously on anticoagulant Eliquis, aquilino win's granddaughter reports they started this on her grandmother on this anticoagulant a couple hospitalizations back but she was not sure why and states that her grandmother only took it for 30 days and never took it again secondary to cost and would not like her started back on this medication. Patient was brought to the emergency department for evaluation for increased weakness on 04/18/21. Upon evaluation she was found to have leukocytosis with WBC count of 13.1, and acute on chronic anemia with hemoglobin of 6.9 requiring transfusion of 1 unit PRBCs. In addition patient was found to have an acute kidney injury on stage III CKD with BUN 27, creatinine 2.52, and GFR of 16 with baseline creatinine of 1.7. Patient underwent a CT head which was negative for acute intercranial process. CT abdomen and pelvis without contrast was completed revealing cholestasis and changes in chest consistent with congestive heart failure, nonobstructive 3 mm right renal calculi with no obstruction, and negative for acute intra-abdominal abnormalities. An EKG was completed revealing sinus rhythm at 64 bpm with no noted T-wave or ST abnormalities. 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 Patient was admitted under our services with consultation to nephrology and pulmonology. Echocardiogram completed 02/25/21 revealing an EF between 55 and 60% with a moderately dilated left atrium, moderate mitral annular calcification, mild mitral regurgitation, mild to moderate tricuspid regurgitation, and moderate pulmonary hypertension. Physical exam: Patient was seen and fully evaluated at the bedside this morning patient alert to self only, confused to place, time, and situation. Per patient's granddaughter, this is patient's baseline mentation. Patient currently denies having any pain or complaints including headache, lightheadedness, dizziness, chest pain, palpitations, shortness of breath, or experiencing numbness/tingling/weakness in her extremities. Nephrology following for acute kidney injury on chronic kidney disease and recommending to continue oral Lasix 20 mg twice a day for treatment of acute on chronic diastolic congestive heart failure with mild to moderate tricuspid regurgitation and moderate pulmonary hypertension with continue close monitoring of renal function and electrolytes. Granddaughter stating patient has not been on anticoagulant, Eliquis in a very very long time secondary to cost and does not want this medication resumed. She was unable to state reason patient was placed on anticoagulant in the first place. Possibly secondary to underlying atrial fibrillation, patient's granddaughter denies previously known history of blood clots and reports understanding the risks of permanently discontinuing/stopping anticoagulant. Griffin bennett's granddaughter reports that she, her sister, and mother live with her grandmother and care for her 29/09. She reports full awareness that patient will need 29 09 supervision upon discharge and states they are able to provide that. Vital signs reviewed and stable. General: Nontoxic, no distress and appears stated age. Derm: Skin warm and dry, normal coloration for ethnicity. Head: Atraumatic, normocephalic and symmetric. Eyes: EOMs intact, no lid lag, and anicteric sclera Mouth: no lip lesions, mucus membranes moist Cardiovascular: regular rate and rhythm with normal S1S2, systolic murmur, positive posterior tibial pulses bilaterally, and cap refill < 2 seconds. Lungs: Respirations even, regular, and unlabored on room air. Lungs CTA bilaterally, no rhonchi, no rales, no wheezing, and no accessory muscle usage. Abdominal: soft, nontender to palpation, no guarding, no appreciable organomegaly Ext: ROM intact. No gross muscle atrophy, no edema, no contractures Neuro: Speech clear, face symmetrical and CN II-XII grossly intact with no noted focal neuro deficits with the exception of being alert to self only which is baseline mentation per granddaughter. Psych: Patient alert and oriented to self only, pleasantly confused. Assessment and Plan of Care: Acute on chronic anemia status post transfusion of 1 unit PRBCs, hemoglobin stable Generalized weakness likely multifactorial secondary to acute on chronic anemia, acute kidney injury, and pneumonia -Eliquis was discontinued per request of family. -Hemoglobin currently stable at 8.3 -Protonix 40 mg daily. -No evidence of GI bleeding, fecal occult negative. Acute on chronic anemia possibly secondary to worsening renal function. Acute Kidney Injury on chronic stage III CKD -Nephrology following -Continue Sodium Bicarb 650 mg BID -With the exception of Lasix to be continued per nephrology, we will avoid nephrotoxic medications. Acute exacerbation of chronic diastolic heart failure -Echocardiogram completed 02/25/21 revealing an EF between 55 and 60% with a moderately dilated left atrium, moderate mitral annular calcification, mild mitral regurgitation, mild to moderate tricuspid regurgitation, and moderate pulmonary hypertension. -Continue Lasix 20 mg twice a day Pneumonia -Oxygenation to be administered and titrated as needed to maintain SPO2 equal to or greater than 92%, patient remains on a -Telemetry monitoring. -Monitor Pulse-oximetry -Incentive Spirometry -Antibiotics: Patient completed 5 day course of azithromycin on 04/22/21 and will complete 5 day course of Cefdinir on 04/23/21. -Pro-calcitonin was elevated at 0.58. -Blood cultures no growth. 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 Hypertension -Monitor vital signs and continue daily medication regimen with amlodipine and metoprolol. Hypothyroidism -Continue daily medication regimen with levothyroxine 125 g each morning. UTI ruled out, urine culture negative Nonobstructive right renal calculi, no further recommendations if develops symptoms may consider outpatient follow-up urology CODE STATUS: Full code DVT prophylaxis: SCDs Discussed with: Patient and RN. Called to speak with daughter, Louise Staton at 2:40 pm and there was no answer. Called and spoke with patient's granddaughter, Renay at 2:42 PM. Anticipated discharge date: 1-[address]: Home with home care A total of 45 minutes was spent on the care of this complex patient more than 50% of the time was spent in counseling and care coordination. Objective - Vital Signs Vital signs: Vital Signs Temp 97.7 F 04/22/21 05:36 Pulse 59 L 04/22/21 05:36 Resp 17 04/22/21 05:36 BP 146/69 04/22/21 05:36 Pulse Ox 95 04/22/21 05:36 Intake & Output 04/21/21 04/22/21 04/22/21 18:59 06:59 18:59 Intake Total 540 Output Total 600 Balance 540 -600 Intake: Oral 540 Output: Urine 600 Other: Voiding Method Bedside Commode Bedside Commode Bedside Commode Diaper # Voids 2 1 # Bowel Movements 0 - Labs CBC & Chem 7: 04/22/21 09:21 04/22/21 09:21 Labs: Abnormal Lab Results - Last 24 Hours (Table) 04/18/21 Range/Units 01:38 Vitamin B12 >2000.0 H (200.0-944.0) pg/mL Microbiology - Last 24 Hours (Table) 04/18/21 01:10 Blood Culture - Preliminary Blood No Growth after 96 hours 04/18/21 01:05 Blood Culture - Preliminary Blood No Growth after 96 hours <Farrah Coker - Last Filed: 04/22/21 18:16> Subjective Mateusz Collazo NP rendered care for this patient independently, reviewed the findings and plan as documented in the note above. I did not physically speak with or examine the patient on this date. Oncology note reviewed. 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 Objective - Vital Signs Vital signs: Vital Signs Temp 98.5 F 04/22/21 14:00 Pulse 67 04/22/21 14:00 Resp 16 04/22/21 14:00 BP 127/60 04/22/21 14:00 Pulse Ox 90 L 04/22/21 14:00 Intake & Output 04/21/21 04/22/21 04/22/21 18:59 06:59 18:59 Intake Total 540 Output Total 600 Balance 540 -600 Intake: Oral 540 Output: Urine 600 Other: Voiding Method Bedside Commode Bedside Commode Bedside Commode Diaper # Voids 2 1 # Bowel Movements 0 2 - Labs CBC & Chem 7: 04/22/21 09:21 04/22/21 09:21 Labs: Abnormal Lab Results - Last 24 Hours (Table) 04/22/21 04/22/21 04/22/21 Range/Units 09:21 09:21 09:21 WBC 10.8 H (3.8-10.6) k/uL RBC 2.72 L (3.80-5.40) m/uL Hgb 8.3 L (11.4-16.0) gm/dL Hct 26.4 L (34.0-46.0) % RDW 20.0 H (11.5-15.5) % Plt Count 129 L (150-450) k/uL Sodium 134 L (137-145) mmol/L BUN 30 H (7-17) mg/dL Creatinine 2.17 H (0.52-1.04) mg/dL Glucose 100 H (74-99) mg/dL Magnesium 2.4 H (1.6-2.3) mg/dL Ferritin 779.0 H (10.0-291.0) ng/mL AST 75 H (14-36) U/L Alkaline Phosphatase 151 H (38-126) U/L Albumin 3.0 L (3.5-5.0) g/dL Microbiology - Last 24 Hours (Table) 04/18/21 01:10 Blood Culture - Preliminary Blood No Growth after 96 hours 04/18/21 01:05 Blood Culture - Preliminary Blood No Growth after 96 hours
[2021-04-22 10:26] LABS: Anisocytosis Slight; HCT 26.4 % (34.0-46.0); HGB 8.3 gm/dL (11.4-16.0); Hypochromasia Moderate; MCH 30.6 pg (25.0-35.0); MCHC 31.5 g/dL (31.0-37.0); MCV 97.1 fL (80.0-100.0); Macrocytosis Slight; Mean Platelet Volume 11.3; Platelet Count 129 k/uL (150-450); Poikilocytosis Slight; RBC 2.72 m/uL (3.80-5.40); WBC 10.8 k/uL (3.8-10.6)
[2021-04-22 10:34] LABS: ALT 28 U/L (4-34); AST 75 U/L (14-36); African American GFR (CKD) 23 (>60 ml/min/1.73 sqM); Albumin/Globulin Ratio 0.7; Alkaline Phosphatase 151 U/L (38-126); Anion Gap 8 mmol/L; Blood Urea Nitrogen 30 mg/dL (7-17); Calcium 9.8 mg/dL (8.4-10.2); Carbon Dioxide 24 mmol/L (22-30); Chloride 102 mmol/L (98-107); Globulin 4.2 g/dL; Glucose 100 mg/dL (74-99); Magnesium 2.4 mg/dL (1.6-2.3); Non-African American GFR(CKD) 20 (>60 ml/min/1.73 sqM); Potassium 4.1 mmol/L (3.5-5.1); Sodium 134 mmol/L (137-145); Total Bilirubin 0.5 mg/dL (0.2-1.3); Total Protein 7.2 g/dL (6.3-8.2)
[2021-04-22 14:37] LABS: C-ANCA <1:20 Titer (<1:20)
--- NOTE | 2021-04-22 16:23 | P.CONS ---
History of Present Illness - Reason for Consult Consult date: 04/22/21 anemia Requesting physician: Deangelo Lind - Chief Complaint weakness - History of Present Illness We have been asked to see Mrs. Flowers for symptomatic anemia. Pt denies any knowledge of bleeding, gastric ulders, dysphagia. No know Hx of anemia previously. Does not think she has had endoscopy. On chart review she has been mildly anemic for last 5+ years, slow progression over the last 3 years. Notable renal decline as well. Review of Systems 10 point ROS is neg Past Medical History Past Medical History: No Reported History, Heart Failure, Diabetes Mellitus, Hyperlipidemia, Hypertension, Osteoarthritis (OA), Pneumonia, Renal Disease, Thyroid Disorder Additional Past Medical History / Comment(s): NIDDM type II/diet controlled now, hyponatremia, R upper lobe pneumonia, CKD stage 11/111, anemia, arthritis bilateral hands/shoulders, occasionally knees with "give out", MRSA L axillae with sepsis History of Any Multi-Drug Resistant Organisms: MRSA Year Discovered:: 08/2008 MDRO Source:: axilla Past Surgical History: Breast Surgery, Ear Surgery Additional Past Surgical History / Comment(s): MRSA boil removed left axilla, cysts removed from left breast, cyst removed from forehead, cataracts, right shoulder surgery for rotator cuff, 2016 bronchoscopy/biopsy/BAL, 1991 ear surgery/patch graft-think it was R ear. Past Anesthesia/Blood Transfusion Reactions: No Reported Reaction, Family Hisory of Malignant Hyperthermia Past Psychological History: No Psychological Hx Reported Smoking Status: Never smoker Past Alcohol Use History: None Reported Past Drug Use History: None Reported - Past Family History Father Family Medical History: No Reported History Additional Family Medical History / Comment(s): Father was healthy Mother Family Medical History: No Reported History Additional Family Medical History / Comment(s): Mother lived to be 91 yrs old. Medications and Allergies Home Medications Medication Instructions Recorded Confirmed Type Levothyroxine Sodium 125 mcg PO DAILY #30 tablet 07/13/20 04/18/21 Rx Apixaban [Eliquis] 2.5 mg PO BID 30 Days #60 tab 02/26/21 04/18/21 Rx Ferrous Sulfate [Iron (65 MG 325 mg PO BID-W/MEALS #60 tab 03/04/21 04/18/21 Rx Elemental)] Furosemide [Lasix] 40 mg PO DAILY #30 tab 12/27/21 02/10/22 Rx Losartan [Cozaar] 25 mg PO DAILY #30 tab 03/04/21 04/18/21 Rx Melatonin 5 mg PO HS PRN #5 tablet 03/04/21 04/18/21 Rx Metoprolol Tartrate [Lopressor] 50 mg PO BID #60 tab 03/04/21 04/18/21 Rx Nitroglycerin Oint [Nitro-Bid Oint] 1 inch TOPICAL TID #20 packet 03/04/21 04/18/21 Rx amLODIPine [Norvasc] 10 mg PO DAILY #30 tab 03/04/21 04/18/21 Rx hydrALAZINE HCL [Apresoline] 25 mg PO BID #60 tab 03/04/21 04/18/21 Rx Sodium Bicarbonate Tab 650 mg PO BID #60 tablet 03/28/21 04/18/21 Rx Allergies Allergy/AdvReac Type Severity Reaction Status Date / Time nadolol [From Corgard] Allergy Nausea & Verified 04/18/21 08:22 Vomiting atorvastatin calcium AdvReac MUSCLE PAIN Verified 04/18/21 08:22 [From Lipitor] Physical Exam Vitals: Vital Signs Temp Pulse Resp BP Pulse Ox 04/22/21 05:36 97.7 F 59 L 17 146/69 95 04/22/21 01:21 98.3 F 59 L 17 131/57 98 04/21/21 22:15 68 16 04/21/21 19:22 98.2 F 68 16 144/71 93 L 04/21/21 14:00 98.3 F 64 14 164/62 97 Intake and Output 04/21/21 04/22/21 04/22/21 22:59 06:59 14:59 Intake Total 540 Output Total 600 Balance 540 -600 Intake: Oral 540 Output: Urine 600 Other: Voiding Method Bedside Commode Bedside Commode Diaper # Voids 2 1 # Bowel Movements 0 - Constitutional General appearance: average body habitus, cooperative, no acute distress - EENT Eyes: anicteric sclerae, EOMI ENT: hearing grossly normal - Neck Neck: no lymphadenopathy - Respiratory Respiratory: bilateral: CTA - Cardiovascular Rhythm: regular leg Peripheral Edema: bilateral: None - Gastrointestinal General gastrointestinal: no absent bowel sounds, no decreased bowel sounds, no distended, no hepatomegaly, no hyperactive bowel sounds, normal bowel sounds, no organomegaly, no rigid, no scaphoid, soft, no splenomegaly, no tenderness, no umbilical hernia, no ventral hernia - Integumentary Integumentary: pale - Neurologic Neurologic: CNII-XII intact (grossly) - Musculoskeletal Musculoskeletal: generalized weakness - Psychiatric Psychiatric: A&O x's 3, appropriate affect, intact judgment & insight Results CBC & Chem 7: 04/22/21 09:21 04/22/21 09:21 Labs: Abnormal Lab Results - Last 24 Hours (Table) 04/18/21 04/22/21 04/22/21 Range/Units 01:38 09:21 09:21 WBC 10.8 H (3.8-10.6) k/uL RBC 2.72 L (3.80-5.40) m/uL Hgb 8.3 L (11.4-16.0) gm/dL Hct 26.4 L (34.0-46.0) % RDW 20.0 H (11.5-15.5) % Plt Count 129 L (150-450) k/uL Sodium 134 L (137-145) mmol/L BUN 30 H (7-17) mg/dL Creatinine 2.17 H (0.52-1.04) mg/dL Glucose 100 H (74-99) mg/dL Magnesium 2.4 H (1.6-2.3) mg/dL AST 75 H (14-36) U/L Alkaline Phosphatase 151 H (38-126) U/L Albumin 3.0 L (3.5-5.0) g/dL Vitamin B12 >2000.0 H (200.0-944.0) pg/mL Microbiology - Last 24 Hours (Table) 04/18/21 01:10 Blood Culture - Preliminary Blood No Growth after 96 hours 04/18/21 01:05 Blood Culture - Preliminary Blood No Growth after 96 hours Chest x-ray: report reviewed CT scan - abdomen: report reviewed CT Scan - head: report reviewed CT scan - pelvis: report reviewed Assessment and Plan (1) Symptomatic anemia Current Visit: Yes Status: Acute Priority: High Code(s): D64.9 - ANEMIA, UNSPECIFIED SNOMED Code(s): 597711019 (2) Acute on chronic kidney failure Current Visit: Yes Status: Acute Priority: High Code(s): N17.9 - ACUTE KIDNEY FAILURE, UNSPECIFIED; N18.9 - CHRONIC KIDNEY DISEASE, UNSPECIFIED SNOMED Code(s): 319207373 Plan: Chart review found progressive anemia, progressive worsening renal function. 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 Exacerbated by CKD. Iron studies done, pending ferritin level-requested on pre-transfusion blood if able. Reviewed all imaging, no suspicious findings. Doctor attests: I performed a history and physical examination of this patient, developed imp ression and plan of care, discussed with dictator. I agree with dictators note, documented as a scribe.
[2021-04-23 04:00] LABS: Basophils # (A) 0.08 X 10*3/uL (0.00-0.10); Basophils % (A) 0.8 %; Eosinophils # (A) 0.46 X 10*3/uL (0.04-0.35); Eosinophils % (A) 4.4 %; HCT 25.4 % (37.2-46.3); HGB 7.9 g/dL (12.0-15.0); Immature Grans, Automated 1.9 %; Lymphocytes # (A) 5.19 X 10*3/uL (0.90-5.00); Lymphocytes % (A) 49.8 %; MCH 30.3 pg (27.0-32.0); MCHC 31.1 g/dL (32.0-37.0); MCV 97.3 fL (80.0-97.0); Monocytes # (A) 0.57 X 10*3/uL (0.20-1.00); Monocytes % (A) 5.5 %; NRBC Per 100 WBC 3.8 /100 WBCS (0.0-0.0); Neutrophils # (A) 3.92 X 10*3/uL (1.80-7.70); Neutrophils % (A) 37.6 %; Platelet Count 99 X 10*3/uL (140-440); RBC 2.61 X 10*6/uL (4.10-5.20); RDW 18.6 % (11.5-14.5); WBC 10.42 X 10*3/uL (4.50-10.00)
[2021-04-23 04:01] LABS: Anisocytosis (M) 2+; Immature Platelet Fraction 24.6 % (1.1-6.1); Microcytosis (M) 2+
[2021-04-23] MEDS: LEVOTHYROXINE 125 MCG TAB PO SCH (05:29)
[2021-04-23 06:56] LABS: Glucose,Whole Blood 94 mg/dL (75-99)
[2021-04-23] MEDS: PANTOPRAZOLE 40 MG TABLET PO SCH (07:12)
[2021-04-23] MEDS: CEFDINIR 300 MG CAP PO SCH (07:12)
[2021-04-23] MEDS: METOPROLOL TARTRATE 50 MG TAB PO SCH ×2 (07:12→20:40)
[2021-04-23] MEDS: amLODIPine 10 MG TAB PO SCH (07:12)
[2021-04-23] MEDS: FUROSEMIDE 20 MG TAB PO SCH ×2 (07:13→15:49)
[2021-04-23] MEDS: SODIUM BICARBONATE TAB 650 MG TAB PO SCH ×2 (07:13→20:42)
--- NOTE | 2021-04-23 09:10 | P.PN ---
Subjective Patient is seen in follow-up for acute kidney injury on chronic kidney disease. Creatinine stable at 2.17 yesterday. Denies chest pain or shortness of breath. On 3 L nasal cannula. No edema. Has been voiding. Hemodynamically stable. Vital signs are stable. General: The patient appeared well nourished and normally developed. HEENT: Head exam is unremarkable. LUNGS: Breath sounds decreased. HEART: Rate and Rhythm are regular. ABDOMEN: Soft, no distention. EXTREMITITES: No edema. Objective - Vital Signs Vital signs: Vital Signs Temp 98.5 F 04/23/21 07:18 Pulse 69 04/23/21 07:18 Resp 18 04/23/21 07:18 BP 159/79 04/23/21 07:18 Pulse Ox 98 04/23/21 07:18 Intake & Output 04/22/21 04/23/21 04/23/21 18:59 06:59 18:59 Intake Total 1080 Balance 1080 Intake: Oral 1080 Other: Voiding Method Bedside Commode Bedside Commode Diaper Diaper # Voids 2 0 # Bowel Movements 2 - Labs CBC & Chem 7: 04/22/21 15:50 04/22/21 09:21 Labs: Abnormal Lab Results - Last 24 Hours (Table) 04/22/21 04/22/21 04/22/21 Range/Units 09:21 09:21 09:21 WBC 10.8 H (3.8-10.6) k/uL RBC 2.72 L (3.80-5.40) m/uL Hgb 8.3 L (11.4-16.0) gm/dL Hct 26.4 L (34.0-46.0) % MCV (80.0-97.0) fL MCHC (32.0-37.0) g/dL RDW 20.0 H (11.5-15.5) % Plt Count 129 L (150-450) k/uL Plt Count Comment Absolute Nucleated RBC (0.00-0.00) X 10*3/uL Immature Gran # (0.00-0.04) X 10*3/uL Lymphocytes # (0.90-5.00) X 10*3/uL Eosinophils # (0.04-0.35) X 10*3/uL NRBC/100 WBC Diff (0.0-0.0) /100 WBCS Immature Plt Fraction (1.1-6.1) % Sodium 134 L (137-145) mmol/L BUN 30 H (7-17) mg/dL Creatinine 2.17 H (0.52-1.04) mg/dL Glucose 100 H (74-99) mg/dL Magnesium 2.4 H (1.6-2.3) mg/dL Ferritin 779.0 H (10.0-291.0) ng/mL AST 75 H (14-36) U/L Alkaline Phosphatase 151 H (38-126) U/L Albumin 3.0 L (3.5-5.0) g/dL 04/22/21 Range/Units 15:50 WBC 10.42 H (3.8-10.6) k/uL RBC 2.61 L (3.80-5.40) m/uL Hgb 7.9 L (11.4-16.0) gm/dL Hct 25.4 L (34.0-46.0) % MCV 97.3 H (80.0-97.0) fL MCHC 31.1 L (32.0-37.0) g/dL RDW 18.6 H (11.5-15.5) % Plt Count 99 L (150-450) k/uL Plt Count Comment DECREASED A Absolute Nucleated RBC 0.40 H (0.00-0.00) X 10*3/uL Immature Gran # 0.20 H (0.00-0.04) X 10*3/uL Lymphocytes # 5.19 H (0.90-5.00) X 10*3/uL Eosinophils # 0.46 H (0.04-0.35) X 10*3/uL NRBC/100 WBC Diff 3.8 H (0.0-0.0) /100 WBCS Immature Plt Fraction 24.6 H (1.1-6.1) % Sodium (137-145) mmol/L BUN (7-17) mg/dL Creatinine (0.52-1.04) mg/dL Glucose (74-99) mg/dL Magnesium (1.6-2.3) mg/dL Ferritin (10.0-291.0) ng/mL AST (14-36) U/L Alkaline Phosphatase (38-126) U/L Albumin (3.5-5.0) g/dL Microbiology - Last 24 Hours (Table) 04/18/21 01:05 Blood Culture - Preliminary Blood No Growth after 120 hours 04/18/21 01:10 Blood Culture - Preliminary Blood No Growth after 120 hours Assessment and Plan Plan: Assessment: 1. Acute kidney injury secondary to ATN secondary to acute blood loss anemia. Creatinine 2.17 yesterday. UA with 2+ proteinuria. So far serologies negative except positive EVELYN. No hydronephrosis noted on CAT scan. 2. Chronic kidney disease stage IIIB with baseline creatinine near 1.5 secondary to nephrosclerosis. 3. 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 4. Acute blood loss anemia status post blood transfusion this admission. Iron replete. Component of chronic kidney disease. On Aranesp. Hematology foll owing as well. 5. Hypertension with chronic kidney disease. Stable. 6. Metabolic acidosis secondary to chronic kidney disease maintained on oral bicarbonate. Improved. Plan: Maintain oral Lasix. Follow-up pending serologies. Continue to monitor renal function and urine output. Due to patient's advanced age and comorbidities, would hold off on kidney biopsy. Avoid nephrotoxins. Patient will need to follow-up outpatient 1 week post discharge.
[2021-04-23 09:38] LABS: Albumin 2.8 g/dL (3.8-4.9); Albumin/Globulin Ratio 0.8 (1.60-3.17); Anion Gap 14.4 mmol/L (10.00-18.00); BUN/Creat Ratio 12.35 Ratio (12.00-20.00); Blood Urea Nitrogen 24.7 mg/dL (9.0-27.0); Calcium 9.4 mg/dL (8.7-10.3); Carbon Dioxide 22.6 mmol/L (20.0-27.5); Globulin 3.5 g/dL (1.6-3.3); Magnesium 2.3 mg/dL (1.5-2.4); Non-African American GFR(CKD) 21.6 (60.0-200.0); Potassium 4.2 mmol/L (3.5-5.5); Total Bilirubin 0.3 mg/dL (0.30-1.20); Total Protein 6.3 g/dL (6.2-8.2)
[2021-04-23 10:22] LABS: HCT 23.4 % (37.2-46.3); HGB 7.2 g/dL (12.0-15.0); MCH 30.3 pg (27.0-32.0); MCHC 30.8 g/dL (32.0-37.0); MCV 98.3 fL (80.0-97.0); Mean Platelet Volume 13.2 fL (9.5-12.2); NRBC Per 100 WBC 4.5 /100 WBCS (0.0-0.0); Platelet Count 109 X 10*3/uL (140-440); RBC 2.38 X 10*6/uL (4.10-5.20); RDW 19.3 % (11.5-14.5); WBC 9.74 X 10*3/uL (4.50-10.00)
--- NOTE | 2021-04-23 10:55 | P.PN ---
<Mateusz Collazo - Last Filed: 04/23/21 15:47> Subjective Progress Note Date: 04/23/21 Hospital course: Patient is a very pleasant 89-year-old female with a past medical history of a dvanced dementia with baseline mentation alert to self only, chronic diastolic heart failure, hypertension, hyperlipidemia, hypothyroidism, chronic kidney disease stage III, and [id number] diabetes mellitus. Per documentation in chart patient was previously on anticoagulant Eliquis, aquilino win's granddaughter reports they started this on her grandmother on this anticoagulant a couple hospitalizations back but she was not sure why and states that her grandmother only took it for 30 days and never took it again secondary to cost and would not like her started back on this medication. Patient was brought to the emergency department for evaluation for increased weakness on 04/18/21. Upon evaluation she was found to have leukocytosis with WBC count of 13.1, and acute on chronic anemia with hemoglobin of 6.9 requiring transfusion of 1 unit PRBCs. In addition patient was found to have an acute kidney injury on stage III CKD with BUN 27, creatinine 2.52, and GFR of 16 with baseline creatinine of 1.7. Patient underwent a CT head which was negative for acute intercranial process. CT abdomen and pelvis without contrast was completed revealing cholestasis and changes in chest consistent with congestive heart failure, nonobstructive 3 mm right renal calculi with no obstruction, and negative for acute intra-abdominal abnormalities. An EKG was completed revealing sinus rhythm at 64 bpm with no noted T-wave or ST abnormalities. 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 Patient was admitted under our services with consultation to nephrology and pulmonology. Echocardiogram completed 02/25/21 revealing an EF between 55 and 60% with a moderately dilated left atrium, moderate mitral annular calcification, mild mitral regurgitation, mild to moderate tricuspid regurgitation, and moderate pulmonary hypertension. Physical exam: Patient was seen and fully evaluated at the bedside this morning. She remains at baseline mentation and alert to self only. She appeared to be resting comfortably and denied having any pain or complaints including headache, lightheadedness, dizziness, chest pain, palpitations, or shortness of breath. Patient was ambulated in the room and found to become significantly hypoxic with ambulation and desaturating down to 75%. Upon rest and being placed back on nasal cannula oxygen SpO2 is stabilized and increased back to 90%. Arrangements being set up for patient to go home with home oxygen and palliative care. Renal function slightly improving with BUN 24.7, creatinine 2.0, and GFR of 21.6. Nephrology clearing patient for discharge home and recommending following up outpatient in the office in 1-2 weeks. Arrangements being made plan for discharge home tomorrow morning. Hemoglobin stable at 8.9. Vital signs reviewed and stable. General: Nontoxic, no distress and appears stated age. Derm: Skin warm and dry, normal coloration for ethnicity. Head: Atraumatic, normocephalic and symmetric. Eyes: EOMs intact, no lid lag, and anicteric sclera Mouth: no lip lesions, mucus membranes moist Cardiovascular: regular rate and rhythm with normal S1S2, systolic murmur, positive posterior tibial pulses bilaterally, and cap refill < 2 seconds. Lungs: Respirations even, regular, and unlabored on room air. Lungs CTA bilaterally, no rhonchi, no rales, no wheezing, and no accessory muscle usage. Abdominal: soft, nontender to palpation, no guarding, no appreciable organomegaly Ext: ROM intact. No gross muscle atrophy, no edema, no contractures Neuro: Speech clear, face symmetrical and CN II-XII grossly intact with no noted focal neuro deficits with the exception of being alert to self only which is baseline mentation per granddaughter. Psych: Patient alert and oriented to self only, pleasantly confused. Assessment and Plan of Care: Acute on chronic anemia status post transfusion of 1 unit PRBCs, hemoglobin stable Generalized weakness likely multifactorial secondary to acute on chronic anemia, acute kidney injury, and pneumonia -Eliquis was discontinued per request of family. -Hemoglobin currently stable at 8.9 -Protonix 40 mg daily. -No evidence of GI bleeding, fecal occult negative. Acute on chronic anemia possibly secondary to worsening renal function. Acute Kidney Injury on chronic stage III CKD, improving -Nephrology following -Continue Sodium Bicarb 650 mg BID -With the exception of Lasix to be continued per nephrology, we will avoid ne phrotoxic medications. Acute exacerbation of chronic diastolic heart failure -Echocardiogram completed 02/25/21 revealing an EF between 55 and 60% with a moderately dilated left atrium, moderate mitral annular calcification, mild mitral regurgitation, mild to moderate tricuspid regurgitation, and moderate pulmonary hypertension. -Continue Lasix 20 mg twice a day Pneumonia -Oxygenation to be administered and titrated as needed to maintain SPO2 equal to or greater than 92%, patient remains on a -Telemetry monitoring. -Monitor Pulse-oximetry -Incentive Spirometry -Antibiotics: Patient completed 5 day course of azithromycin and Cefdinir. -Blood cultures no growth after 120 hours . Arthritic changes in right shoulder with subluxation deformity -Apply sling to right arm, patient to follow up outpatient with donation specialist. Hypertension -Monitor vital signs and continue daily medication regimen with amlodipine and metoprolol. Hypothyroidism -Continue daily medication regimen with levothyroxine 125 g each morning. UTI ruled out, urine culture negative Nonobstructive right renal calculi, no further recommendations if develops symptoms may consider outpatient follow-up urology CODE STATUS: Full code DVT prophylaxis: SCDs Discussed with: Patient and RN. Anticipated discharge date: Tomorrow morning Anticipated discharge place: Home with palliative care A total of 40 minutes was spent on the care of this complex patient more than 50% of the time was spent in counseling and care coordination. Objective - Vital Signs Vital signs: Vital Signs Temp 98.5 F 04/23/21 07:18 Pulse 69 04/23/21 07:18 Resp 18 04/23/21 07:18 BP 159/79 04/23/21 07:18 Pulse Ox 98 04/23/21 07:18 Intake & Output 04/22/21 04/23/21 04/23/21 18:59 06:59 18:59 Intake Total 1080 Balance 1080 Intake: Oral 1080 Other: Voiding Method Bedside Commode Bedside Commode Bedside Commode Diaper Diaper Diaper # Voids 2 0 # Bowel Movements 2 - Labs CBC & Chem 7: 04/23/21 10:54 04/23/21 04:10 Labs: Abnormal Lab Results - Last 24 Hours (Table) 04/22/21 04/22/21 04/23/21 Range/Units 09:21 15:50 04:10 WBC 10.42 H (4.50-10.00) X 10*3/uL RBC 2.61 L 2.38 L (4.10-5.20) X 10*6/uL Hgb 7.9 L 7.2 L (12.0-15.0) g/dL Hct 25.4 L 23.4 L (37.2-46.3) % MCV 97.3 H 98.3 H (80.0-97.0) fL MCHC 31.1 L 30.8 L (32.0-37.0) g/dL RDW 18.6 H 19.3 H (11.5-14.5) % Plt Count 99 L 109 L (140-440) X 10*3/uL Plt Count Comment DECREASED A MPV 13.2 H (9.5-12.2) fL Absolute Nucleated RBC 0.40 H 0.44 H (0.00-0.00) X 10*3/uL Immature Gran # 0.20 H (0.00-0.04) X 10*3/uL Lymphocytes # 5.19 H (0.90-5.00) X 10*3/uL Eosinophils # 0.46 H (0.04-0.35) X 10*3/uL NRBC/100 WBC Diff 3.8 H 4.5 H (0.0-0.0) /100 WBCS Immature Plt Fraction 24.6 H (1.1-6.1) % Creatinine (0.6-1.5) mg/dL Est GFR (CKD-EPI)AfAm (60.0-200.0) Est GFR (CKD-EPI)NonAf (60.0-200.0) Ferritin 779.0 H (10.0-291.0) ng/mL AST (13-35) U/L Albumin (3.8-4.9) g/dL Globulin (1.6-3.3) g/dL Albumin/Globulin Ratio (1.60-3.17) g/dL 04/23/21 Range/Units 04:10 WBC (4.50-10.00) X 10*3/uL RBC (4.10-5.20) X 10*6/uL Hgb (12.0-15.0) g/dL Hct (37.2-46.3) % MCV (80.0-97.0) fL MCHC (32.0-37.0) g/dL RDW (11.5-14.5) % Plt Count (140-440) X 10*3/uL Plt Count Comment MPV (9.5-12.2) fL Absolute Nucleated RBC (0.00-0.00) X 10*3/uL Immature Gran # (0.00-0.04) X 10*3/uL Lymphocytes # (0.90-5.00) X 10*3/uL Eosinophils # (0.04-0.35) X 10*3/uL NRBC/100 WBC Diff (0.0-0.0) /100 WBCS Immature Plt Fraction (1.1-6.1) % Creatinine 2.0 H (0.6-1.5) mg/dL Est GFR (CKD-EPI)AfAm 25.0 L (60.0-200.0) Est GFR (CKD-EPI)NonAf 21.6 L (60.0-200.0) Ferritin (10.0-291.0) ng/mL AST 67 H (13-35) U/L Albumin 2.8 L (3.8-4.9) g/dL Globulin 3.5 H (1.6-3.3) g/dL Albumin/Globulin Ratio 0.80 L (1.60-3.17) g/dL Microbiology - Last 24 Hours (Table) 04/18/21 01:05 Blood Culture - Preliminary Blood No Growth after 120 hours 04/18/21 01:10 Blood Culture - Preliminary Blood No Growth after 120 hours <Farrah Coker - Last Filed: 04/23/21 18:32> Subjective Mateusz Collazo NP rendered care for this patient independently, reviewed the findings and plan as documented in the note above. I did not physically speak with or examine the patient on this date. Objective - Vital Signs Vital signs: Vital Signs Temp 98.2 F 04/23/21 13:58 Pulse 66 04/23/21 13:58 Resp 17 04/23/21 13:58 BP 145/66 04/23/21 13:58 Pulse Ox 99 04/23/21 13:58 Intake & Output 04/22/21 04/23/21 04/23/21 18:59 06:59 18:59 Intake Total 1080 960 Balance 1080 960 Intake: Oral 1080 960 Other: Voiding Method Bedside Commode Bedside Commode Bedside Commode Diaper Diaper Diaper # Voids 2 0 2 # Bowel Movements 2 0 - Labs CBC & Chem 7: 04/23/21 10:54 04/23/21 04:10 Labs: Abnormal Lab Results - Last 24 Hours (Table) 04/18/21 04/22/21 04/23/21 Range/Units 01:38 15:50 04:10 WBC 10.42 H (4.50-10.00) X 10*3/uL RBC 2.61 L 2.38 L (4.10-5.20) X 10*6/uL Hgb 7.9 L 7.2 L (12.0-15.0) g/dL Hct 25.4 L 23.4 L (37.2-46.3) % MCV 97.3 H 98.3 H (80.0-97.0) fL MCHC 31.1 L 30.8 L (32.0-37.0) g/dL RDW 18.6 H 19.3 H (11.5-14.5) % Plt Count 99 L 109 L (140-440) X 10*3/uL Plt Count Comment DECREASED A MPV 13.2 H (9.5-12.2) fL Absolute Nucleated RBC 0.40 H 0.44 H (0.00-0.00) X 10*3/uL Immature Gran # 0.20 H (0.00-0.04) X 10*3/uL Lymphocytes # 5.19 H (0.90-5.00) X 10*3/uL Eosinophils # 0.46 H (0.04-0.35) X 10*3/uL NRBC/100 WBC Diff 3.8 H 4.5 H (0.0-0.0) /100 WBCS Immature Plt Fraction 24.6 H (1.1-6.1) % Creatinine (0.6-1.5) mg/dL Est GFR (CKD-EPI)AfAm (60.0-200.0) Est GFR (CKD-EPI)NonAf (60.0-200.0) AST (13-35) U/L Albumin (3.8-4.9) g/dL Globulin (1.6-3.3) g/dL Albumin/Globulin Ratio (1.60-3.17) g/dL RBC Folate 830 H (280 - 791) ng/mL 04/23/21 04/23/21 Range/Units 04:10 10:54 WBC 11.3 H (4.50-10.00) X 10*3/uL RBC 2.82 L (4.10-5.20) X 10*6/uL Hgb 8.9 L (12.0-15.0) g/dL Hct 27.4 L (37.2-46.3) % MCV (80.0-97.0) fL MCHC (32.0-37.0) g/dL RDW 19.1 H (11.5-14.5) % Plt Count 121 L (140-440) X 10*3/uL Plt Count Comment MPV (9.5-12.2) fL Absolute Nucleated RBC (0.00-0.00) X 10*3/uL Immature Gran # (0.00-0.04) X 10*3/uL Lymphocytes # (0.90-5.00) X 10*3/uL Eosinophils # (0.04-0.35) X 10*3/uL NRBC/100 WBC Diff (0.0-0.0) /100 WBCS Immature Plt Fraction (1.1-6.1) % Creatinine 2.0 H (0.6-1.5) mg/dL Est GFR (CKD-EPI)AfAm 25.0 L (60.0-200.0) Est GFR (CKD-EPI)NonAf 21.6 L (60.0-200.0) AST 67 H (13-35) U/L Albumin 2.8 L (3.8-4.9) g/dL Globulin 3.5 H (1.6-3.3) g/dL Albumin/Globulin Ratio 0.80 L (1.60-3.17) g/dL RBC Folate (280 - 791) ng/mL Microbiology - Last 24 Hours (Table) 04/18/21 01:05 Blood Culture - Preliminary Blood No Growth after 120 hours 04/18/21 01:10 Blood Culture - Preliminary Blood No Growth after 120 hours
[2021-04-23 11:57] LABS: Anisocytosis Slight; HCT 27.4 % (34.0-46.0); HGB 8.9 gm/dL (11.4-16.0); Hypochromasia Moderate; MCH 31.6 pg (25.0-35.0); MCHC 32.4 g/dL (31.0-37.0); MCV 97.5 fL (80.0-100.0); Macrocytosis Slight; Mean Platelet Volume 11.9; Platelet Count 121 k/uL (150-450); Poikilocytosis Slight; RBC 2.82 m/uL (3.80-5.40); RDW 19.1 % (11.5-15.5); WBC 11.3 k/uL (3.8-10.6)
--- NOTE | 2021-04-23 14:32 | P.PN ---
Subjective Progress Note Date: 04/23/21 Principal diagnosis: anemia In f/u pt has no specific c/o, denies bleeding. Objective - Vital Signs Vital signs: Vital Signs Temp 98.5 F 04/23/21 07:18 Pulse 69 04/23/21 07:18 Resp 18 04/23/21 07:18 BP 159/79 04/23/21 07:18 Pulse Ox 75 L 04/23/21 10:54 Intake & Output 04/22/21 04/23/21 04/23/21 18:59 06:59 18:59 Intake Total 1080 Balance 1080 Intake: Oral 1080 Other: Voiding Method Bedside Commode Bedside Commode Bedside Commode Diaper Diaper Diaper # Voids 2 0 # Bowel Movements 2 - Constitutional General appearance: Present: average body habitus, cooperative, no acute distress - EENT Eyes: Present: anicteric sclerae, EOMI ENT: Present: hard of hearing - Integumentary Integumentary: Present: pale - Musculoskeletal Musculoskeletal: Present: generalized weakness - Labs CBC & Chem 7: 04/23/21 10:54 04/23/21 04:10 Labs: Abnormal Lab Results - Last 24 Hours (Table) 04/18/21 04/22/21 04/22/21 Range/Units 01:38 09:21 15:50 WBC 10.42 H (4.50-10.00) X 10*3/uL RBC 2.61 L (4.10-5.20) X 10*6/uL Hgb 7.9 L (12.0-15.0) g/dL Hct 25.4 L (37.2-46.3) % MCV 97.3 H (80.0-97.0) fL MCHC 31.1 L (32.0-37.0) g/dL RDW 18.6 H (11.5-14.5) % Plt Count 99 L (140-440) X 10*3/uL Plt Count Comment DECREASED A MPV (9.5-12.2) fL Absolute Nucleated RBC 0.40 H (0.00-0.00) X 10*3/uL Immature Gran # 0.20 H (0.00-0.04) X 10*3/uL Lymphocytes # 5.19 H (0.90-5.00) X 10*3/uL Eosinophils # 0.46 H (0.04-0.35) X 10*3/uL NRBC/100 WBC Diff 3.8 H (0.0-0.0) /100 WBCS Immature Plt Fraction 24.6 H (1.1-6.1) % Creatinine (0.6-1.5) mg/dL Est GFR (CKD-EPI)AfAm (60.0-200.0) Est GFR (CKD-EPI)NonAf (60.0-200.0) Ferritin 779.0 H (10.0-291.0) ng/mL AST (13-35) U/L Albumin (3.8-4.9) g/dL Globulin (1.6-3.3) g/dL Albumin/Globulin Ratio (1.60-3.17) g/dL RBC Folate 830 H (280 - 791) ng/mL 04/23/21 04/23/21 04/23/21 Range/Units 04:10 04:10 10:54 WBC 11.3 H (4.50-10.00) X 10*3/uL RBC 2.38 L 2.82 L (4.10-5.20) X 10*6/uL Hgb 7.2 L 8.9 L (12.0-15.0) g/dL Hct 23.4 L 27.4 L (37.2-46.3) % MCV 98.3 H (80.0-97.0) fL MCHC 30.8 L (32.0-37.0) g/dL RDW 19.3 H 19.1 H (11.5-14.5) % Plt Count 109 L 121 L (140-440) X 10*3/uL Plt Count Comment MPV 13.2 H (9.5-12.2) fL Absolute Nucleated RBC 0.44 H (0.00-0.00) X 10*3/uL Immature Gran # (0.00-0.04) X 10*3/uL Lymphocytes # (0.90-5.00) X 10*3/uL Eosinophils # (0.04-0.35) X 10*3/uL NRBC/100 WBC Diff 4.5 H (0.0-0.0) /100 WBCS Immature Plt Fraction (1.1-6.1) % Creatinine 2.0 H (0.6-1.5) mg/dL Est GFR (CKD-EPI)AfAm 25.0 L (60.0-200.0) Est GFR (CKD-EPI)NonAf 21.6 L (60.0-200.0) Ferritin (10.0-291.0) ng/mL AST 67 H (13-35) U/L Albumin 2.8 L (3.8-4.9) g/dL Globulin 3.5 H (1.6-3.3) g/dL Albumin/Globulin Ratio 0.80 L (1.60-3.17) g/dL RBC Folate (280 - 791) ng/mL Microbiology - Last 24 Hours (Table) 04/18/21 01:05 Blood Culture - Preliminary Blood No Growth after 120 hours 04/18/21 01:10 Blood Culture - Preliminary Blood No Growth after 120 hours Assessment and Plan (1) Symptomatic anemia Current Visit: Yes Status: Acute Priority: High Code(s): D64.9 - ANEMIA, UNSPECIFIED SNOMED Code(s): 885541473 (2) Acute on chronic kidney failure Current Visit: Yes Status: Acute Priority: High Code(s): N17.9 - ACUTE KIDNEY FAILURE, UNSPECIFIED; N18.9 - CHRONIC KIDNEY DISEASE, UNSPECIFIED SNOMED Code(s): 473725591 Plan: Chart review found progressive anemia, progressive worsening renal function. 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 Exacerbated by CKD. Iron studies done, WNDL. Ferritin level elevated likely from recent transfusion, elevated level suggestive of inflammation. SPEP and K/L light chains ordered Pending epo level Reviewed all imaging, no suspicious findings.
[2021-04-24] MEDS: LEVOTHYROXINE 125 MCG TAB PO SCH (05:52)
[2021-04-24 07:10] LABS: Glucose,Whole Blood 88 mg/dL (75-99)
[2021-04-24] MEDS: amLODIPine 10 MG TAB PO SCH (08:00)
[2021-04-24] MEDS: PANTOPRAZOLE 40 MG TABLET PO SCH (08:00)
[2021-04-24] MEDS: SODIUM BICARBONATE TAB 650 MG TAB PO SCH ×2 (08:00→21:24)
[2021-04-24] MEDS: FUROSEMIDE 20 MG TAB PO SCH ×2 (08:00→17:33)
[2021-04-24] MEDS: METOPROLOL TARTRATE 50 MG TAB PO SCH ×2 (08:00→21:24)
--- NOTE | 2021-04-24 09:37 | P.PN ---
Subjective Patient is seen in follow-up for acute kidney injury on chronic kidney disease. Creatinine stable at 2.0 yesterday. Denies chest pain or shortness of breath. On 2.5 L nasal cannula. No edema. Has been voiding. Hemodynamically stable. Vital signs are stable. General: The patient appeared well nourished and normally developed. HEENT: Head exam is unremarkable. LUNGS: Breath sounds decreased. HEART: Rate and Rhythm are regular. ABDOMEN: Soft, no distention. EXTREMITITES: No edema. Objective - Vital Signs Vital signs: Vital Signs Temp 98.3 F 04/24/21 01:15 Pulse 69 04/24/21 07:05 Resp 16 04/24/21 07:05 BP 146/66 04/24/21 01:15 Pulse Ox 95 04/24/21 01:15 Intake & Output 04/23/21 04/24/21 04/24/21 18:59 06:59 18:59 Intake Total 960 Balance 960 Intake: Oral 960 Other: Voiding Method Bedside Commode Bedside Commode Bedside Commode Diaper Diaper Diaper # Voids 2 2 # Bowel Movements 0 - Labs CBC & Chem 7: 04/23/21 10:54 04/23/21 04:10 Labs: Abnormal Lab Results - Last 24 Hours (Table) 04/18/21 04/19/21 04/23/21 Range/Units 01:38 06:03 04:10 WBC 12.21 H (4.50-10.00) X 10*3/uL RBC 2.71 L 2.38 L (4.10-5.20) X 10*6/uL Hgb 8.1 L 7.2 L (12.0-15.0) g/dL Hct 26.1 L 23.4 L (37.2-46.3) % MCV 98.3 H (80.0-97.0) fL MCHC 31.0 L 30.8 L (32.0-37.0) g/dL RDW 20.9 H 19.3 H (11.5-14.5) % Plt Count 112 L 109 L (140-440) X 10*3/uL MPV 13.2 H (9.5-12.2) fL Absolute Nucleated RBC 0.64 H 0.44 H (0.00-0.00) X 10*3/uL Lymphocytes # (Manual) 6.11 H (0.90-5.00) X 10*3/uL NRBC/100 WBC Diff 5.2 H 4.5 H (0.0-0.0) /100 WBCS Creatinine (0.6-1.5) mg/dL Est GFR (CKD-EPI)AfAm (60.0-200.0) Est GFR (CKD-EPI)NonAf (60.0-200.0) AST (13-35) U/L Albumin (3.8-4.9) g/dL Globulin (1.6-3.3) g/dL Albumin/Globulin Ratio (1.60-3.17) g/dL RBC Folate 830 H (280 - 791) ng/mL 04/23/21 04/23/21 Range/Units 04:10 10:54 WBC 11.3 H (4.50-10.00) X 10*3/uL RBC 2.82 L (4.10-5.20) X 10*6/uL Hgb 8.9 L (12.0-15.0) g/dL Hct 27.4 L (37.2-46.3) % MCV (80.0-97.0) fL MCHC (32.0-37.0) g/dL RDW 19.1 H (11.5-14.5) % Plt Count 121 L (140-440) X 10*3/uL MPV (9.5-12.2) fL Absolute Nucleated RBC (0.00-0.00) X 10*3/uL Lymphocytes # (Manual) (0.90-5.00) X 10*3/uL NRBC/100 WBC Diff (0.0-0.0) /100 WBCS Creatinine 2.0 H (0.6-1.5) mg/dL Est GFR (CKD-EPI)AfAm 25.0 L (60.0-200.0) Est GFR (CKD-EPI)NonAf 21.6 L (60.0-200.0) AST 67 H (13-35) U/L Albumin 2.8 L (3.8-4.9) g/dL Globulin 3.5 H (1.6-3.3) g/dL Albumin/Globulin Ratio 0.80 L (1.60-3.17) g/dL RBC Folate (280 - 791) ng/mL Microbiology - Last 24 Hours (Table) 04/18/21 01:05 Blood Culture - Final Blood No Growth after 144 hours 04/18/21 01:10 Blood Culture - Final Blood No Growth after 144 hours Assessment and Plan Plan: Assessment: 1. Acute kidney injury secondary to ATN secondary to acute blood loss anemia. Creatinine 2.0 yesterday. UA with 2+ proteinuria. Serologies negative except positive EVELYN. No hydronephrosis noted on CAT scan. 2. Chronic kidney disease stage IIIB with baseline creatinine near 1.5 secondary to nephrosclerosis. 3. 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 4. Acute blood loss anemia status post blood transfusion this admission. Iron replete. Component of chronic kidney disease. On Aranesp. Hematology following as well. 5. Hypertension with chronic kidney disease. Stable. 6. Metabolic acidosis secondary to chronic kidney disease maintained on oral bicarbonate. Improved. Plan: Maintain oral Lasix. Continue to monitor renal function and urine output. Due to patient's advanced age and comorbidities, would hold off on kidney biopsy. Avoid nephrotoxins. Patient will need to follow-up outpatient 1 week post discharge.
[2021-04-24 09:58] LABS: African American GFR (CKD) 25.2 (60.0-200.0); Albumin 2.7 g/dL (3.8-4.9); Albumin/Globulin Ratio 0.76 (1.60-3.17); Anion Gap 12.6 mmol/L (10.00-18.00); BUN/Creat Ratio 11.31 Ratio (12.00-20.00); Blood Urea Nitrogen 22.5 mg/dL (9.0-27.0); Calcium 9.5 mg/dL (8.7-10.3); Carbon Dioxide 23.8 mmol/L (20.0-27.5); Globulin 3.6 g/dL (1.6-3.3); Magnesium 2.3 mg/dL (1.5-2.4); Non-African American GFR(CKD) 21.7 (60.0-200.0); Potassium 4.1 mmol/L (3.5-5.5); Total Bilirubin 0.2 mg/dL (0.30-1.20); Total Protein 6.3 g/dL (6.2-8.2)
[2021-04-24 10:55] LABS: HCT 22.9 % (37.2-46.3); HGB 6.9 g/dL (12.0-15.0); MCH 29.5 pg (27.0-32.0); MCHC 30.1 g/dL (32.0-37.0); MCV 97.9 fL (80.0-97.0); NRBC Per 100 WBC 4.2 /100 WBCS (0.0-0.0); Platelet Count 110 X 10*3/uL (140-440); RBC 2.34 X 10*6/uL (4.10-5.20); RDW 18.9 % (11.5-14.5); WBC 9.68 X 10*3/uL (4.50-10.00)
[2021-04-24 11:23] LABS: Glucose,Whole Blood 127 mg/dL (75-99)
--- NOTE | 2021-04-24 11:46 | P.PN ---
Subjective Progress Note Date: 04/24/21 Principal diagnosis: anemia In f/u pt states she didn't sleep well last night. Tired today. Objective - Vital Signs Vital signs: Vital Signs Temp 98.3 F 04/24/21 01:15 Pulse 69 04/24/21 10:13 Resp 16 04/24/21 10:13 BP 146/66 04/24/21 01:15 Pulse Ox 95 04/24/21 01:15 Intake & Output 04/23/21 04/24/21 04/24/21 18:59 06:59 18:59 Intake Total 960 Balance 960 Intake: Oral 960 Other: Voiding Method Bedside Commode Bedside Commode Bedside Commode Diaper Diaper Diaper # Voids 2 2 # Bowel Movements 0 - Constitutional General appearance: Present: average body habitus, cooperative, no acute dis tress - EENT Eyes: Present: EOMI ENT: Present: hard of hearing - Musculoskeletal Musculoskeletal: Present: generalized weakness - Psychiatric Psychiatric: Present: A&O x's 3, appropriate affect - Labs CBC & Chem 7: 04/24/21 05:18 04/24/21 05:18 Labs: Abnormal Lab Results - Last 24 Hours (Table) 04/18/21 04/19/21 04/23/21 Range/Units 01:38 06:03 10:54 WBC 12.21 H 11.3 H (4.50-10.00) X 10*3/uL RBC 2.71 L 2.82 L (4.10-5.20) X 10*6/uL Hgb 8.1 L 8.9 L (12.0-15.0) g/dL Hct 26.1 L 27.4 L (37.2-46.3) % MCV (80.0-97.0) fL MCHC 31.0 L (32.0-37.0) g/dL RDW 20.9 H 19.1 H (11.5-14.5) % Plt Count 112 L 121 L (140-440) X 10*3/uL Absolute Nucleated RBC 0.64 H (0.00-0.00) X 10*3/uL Lymphocytes # (Manual) 6.11 H (0.90-5.00) X 10*3/uL NRBC/100 WBC Diff 5.2 H (0.0-0.0) /100 WBCS Creatinine (0.6-1.5) mg/dL Est GFR (CKD-EPI)AfAm (60.0-200.0) Est GFR (CKD-EPI)NonAf (60.0-200.0) BUN/Creatinine Ratio (12.00-20.00) Ratio POC Glucose (mg/dL) (75-99) mg/dL Total Bilirubin (0.30-1.20) mg/dL AST (13-35) U/L Albumin (3.8-4.9) g/dL Globulin (1.6-3.3) g/dL Albumin/Globulin Ratio (1.60-3.17) g/dL RBC Folate 830 H (280 - 791) ng/mL Procalcitonin (0.02-0.09) ng/mL 04/24/21 04/24/21 04/24/21 Range/Units 05:18 05:18 05:18 WBC (4.50-10.00) X 10*3/uL RBC 2.34 L (4.10-5.20) X 10*6/uL Hgb 6.9 L* (12.0-15.0) g/dL Hct 22.9 L (37.2-46.3) % MCV 97.9 H (80.0-97.0) fL MCHC 30.1 L (32.0-37.0) g/dL RDW 18.9 H (11.5-14.5) % Plt Count 110 L (140-440) X 10*3/uL Absolute Nucleated RBC 0.41 H (0.00-0.00) X 10*3/uL Lymphocytes # (Manual) (0.90-5.00) X 10*3/uL NRBC/100 WBC Diff 4.2 H (0.0-0.0) /100 WBCS Creatinine 2.0 H (0.6-1.5) mg/dL Est GFR (CKD-EPI)AfAm 25.2 L (60.0-200.0) Est GFR (CKD-EPI)NonAf 21.7 L (60.0-200.0) BUN/Creatinine Ratio 11.31 L (12.00-20.00) Ratio POC Glucose (mg/dL) (75-99) mg/dL Total Bilirubin 0.20 L (0.30-1.20) mg/dL AST 65 H (13-35) U/L Albumin 2.7 L (3.8-4.9) g/dL Globulin 3.6 H (1.6-3.3) g/dL Albumin/Globulin Ratio 0.76 L (1.60-3.17) g/dL RBC Folate (280 - 791) ng/mL Procalcitonin 0.47 H (0.02-0.09) ng/mL 04/24/21 Range/Units 11:22 WBC (4.50-10.00) X 10*3/uL RBC (4.10-5.20) X 10*6/uL Hgb (12.0-15.0) g/dL Hct (37.2-46.3) % MCV (80.0-97.0) fL MCHC (32.0-37.0) g/dL RDW (11.5-14.5) % Plt Count (140-440) X 10*3/uL Absolute Nucleated RBC (0.00-0.00) X 10*3/uL Lymphocytes # (Manual) (0.90-5.00) X 10*3/uL NRBC/100 WBC Diff (0.0-0.0) /100 WBCS Creatinine (0.6-1.5) mg/dL Est GFR (CKD-EPI)AfAm (60.0-200.0) Est GFR (CKD-EPI)NonAf (60.0-200.0) BUN/Creatinine Ratio (12.00-20.00) Ratio POC Glucose (mg/dL) 127 H (75-99) mg/dL Total Bilirubin (0.30-1.20) mg/dL AST (13-35) U/L Albumin (3.8-4.9) g/dL Globulin (1.6-3.3) g/dL Albumin/Globulin Ratio (1.60-3.17) g/dL RBC Folate (280 - 791) ng/mL Procalcitonin (0.02-0.09) ng/mL Microbiology - Last 24 Hours (Table) 04/18/21 01:05 Blood Culture - Final Blood No Growth after 144 hours 04/18/21 01:10 Blood Culture - Final Blood No Growth after 144 hours Assessment and Plan (1) Symptomatic anemia Current Visit: Yes Status: Acute Priority: High Code(s): D64.9 - ANEMIA, UNSPECIFIED SNOMED Code(s): 323225603 (2) Acute on chronic kidney failure Current Visit: Yes Status: Acute Priority: High Code(s): N17.9 - ACUTE KIDNEY FAILURE, UNSPECIFIED; N18.9 - CHRONIC KIDNEY DISEASE, UNSPECIFIED SNOMED Code(s): 907438460 Plan: Chart review found progressive anemia, progressive worsening renal function. 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 Exacerbated by CKD. Iron studies done, WNDL. Ferritin level elevated likely from recent transfusion, elevated level suggestive of inflammation. SPEP and K/L light chains ordered Still pending epo level. Aranesp initiated by Nephrology Hgb 6.9. Transfusion parameters now are for transfusion Hgb<6.5 due to shortage.
[2021-04-24 11:52] LABS: Protein, Total 6.3 g/dL (6.2-8.2)
[2021-04-24 12:15] LABS: Anisocytosis Slight; Basophils # (A) 0.1 k/uL (0-0.2); Basophils % (A) 1 %; Eosinophils # (A) 0.2 k/uL (0-0.7); Eosinophils % (A) 3 %; HCT 25.6 % (34.0-46.0); HGB 8.3 gm/dL (11.4-16.0); Hypochromasia Moderate; Lymphocytes # (A) 4.5 k/uL (1.0-4.8); Lymphocytes % (A) 50 %; MCH 32.1 pg (25.0-35.0); MCHC 32.6 g/dL (31.0-37.0); MCV 98.5 fL (80.0-100.0); Macrocytosis Moderate; Mean Platelet Volume 11.1; Monocytes # (A) 0.4 k/uL (0-1.0); Monocytes % (A) 5 %; Neutrophils # (A) 3.6 k/uL (1.3-7.7); Neutrophils % (A) 40 %; Platelet Count 130 k/uL (150-450); Poikilocytosis Slight; RDW 19.8 % (11.5-15.5)
[2021-04-24 12:25] LABS: Free Kappa Lt Chain Qnt, Serum 13.68 mg/dL (0.33-1.94); Free Lambda Lt Chain Qnt, Seru 11.61 mg/dL (0.57-2.63)
--- NOTE | 2021-04-24 14:01 | P.PN ---
<Mateusz Collazo - Last Filed: 04/24/21 13:18> Subjective Progress Note Date: 04/24/21 Hospital course: Patient is a very pleasant 89-year-old female with a past medical history of a dvanced dementia with baseline mentation alert to self only, chronic diastolic heart failure, hypertension, hyperlipidemia, hypothyroidism, chronic kidney disease stage III, and [id number] diabetes mellitus. Per documentation in chart patient was previously on anticoagulant Eliquis, aquilino walden's granddaughter reports they started this on her grandmother on this anticoagulant a couple hospitalizations back but she was not sure why and states that her grandmother only took it for 30 days and never took it again secondary to cost and would not like her started back on this medication. Patient was brought to the emergency department for evaluation for increased weakness on 04/18/21. Upon evaluation she was found to have leukocytosis with WBC count of 13.1, and acute on chronic anemia with hemoglobin of 6.9 requiring transfusion of 1 unit PRBCs. In addition patient was found to have an acute kidney injury on stage III CKD with BUN 27, creatinine 2.52, and GFR of 16 with baseline creatinine of 1.7. Patient underwent a CT head which was negative for acute intercranial process. CT abdomen and pelvis without contrast was completed revealing cholestasis and changes in chest consistent with congestive heart failure, nonobstructive 3 mm right renal calculi with no obstruction, and negative for acute intra-abdominal abnormalities. An EKG was completed revealing sinus rhythm at 64 bpm with no noted T-wave or ST abnormalities. 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 Patient was admitted under our services with consultation to nephrology and pulmonology. Echocardiogram completed 02/25/21 revealing an EF between 55 and 60% with a moderately dilated left atrium, moderate mitral annular calcification, mild mitral regurgitation, mild to moderate tricuspid regurgitation, and moderate pulmonary hypertension. Physical exam: Patient was seen and fully evaluated at the bedside this morning. She remains at baseline mentation and alert to self only. She was eating breakfast, pancakes and sausage and denied having any complaints. Morning labs revealing a hemoglobin of 6.9 and platelet count of 110. Patient has had no noted episodes of blood loss or bleeding, we will repeat CBC for verification. Also pro- calcitonin remains elevated at 0.47, Leukocytosis has resolved and patient has remained afebrile however secondary to continued elevation of pro-calcitonin we will resume antibiotics with doxycycline 100 mg twice a day for an additional 5 days to total 10 days of antibiotic treatment for community-acquired pneumonia. Vital signs reviewed and stable. General: Nontoxic, no distress and appears stated age. Derm: Skin warm and dry, normal coloration for ethnicity. Head: Atraumatic, normocephalic and symmetric. Eyes: EOMs intact, no lid lag, and anicteric sclera Mouth: no lip lesions, mucus membranes moist Cardiovascular: regular rate and rhythm with normal S1S2, systolic murmur, positive posterior tibial pulses bilaterally, and cap refill < 2 seconds. Lungs: Respirations even, regular, and unlabored on room air. Lungs CTA bilaterally, no rhonchi, no rales, no wheezing, and no accessory muscle usage. Abdominal: soft, nontender to palpation, no guarding, no appreciable organomegaly Ext: ROM intact. No gross muscle atrophy, no edema, no contractures Neuro: Speech clear, face symmetrical and CN II-XII grossly intact with no noted focal neuro deficits with the exception of being alert to self only which is baseline mentation per granddaughter. Psych: Patient alert and oriented to self only, pleasantly confused. Assessment and Plan of Care: Acute on chronic anemia status post transfusion of 1 unit PRBCs, hemoglobin Generalized weakness likely multifactorial secondary to acute on chronic anemia, acute kidney injury, and pneumonia -Morning hemoglobin 6.9, order placed for redraw for verification as patient has had no signs of bleeding or noted bruising. -Eliquis was discontinued per request of family. -Protonix 40 mg daily. -No evidence of GI bleeding, fecal occult negative. Acute on chronic anemia possibly secondary to worsening renal function. Acute Kidney Injury on chronic stage III CKD, improving -Nephrology following -Continue Sodium Bicarb 650 mg BID -With the exception of Lasix to be continued per nephrology, we will avoid nephrotoxic medications. Acute exacerbation of chronic diastolic heart failure -Echocardiogram completed 02/25/21 revealing an EF between 55 and 60% with a moderately dilated left atrium, moderate mitral annular calcification, mild mitral regurgitation, mild to moderate tricuspid regurgitation, and moderate pulmonary hypertension. -Continue Lasix 20 mg twice a day Pneumonia -Oxygenation to be administered and titrated as needed to maintain SPO2 equal to or greater than 92%, patient remains on a -Telemetry monitoring. -Monitor Pulse-oximetry -Incentive Spirometry -Antibiotics: Patient completed 5 day course of azithromycin and Cefdinir. -Blood cultures no growth after 120 hours . 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 Hypertension -Monitor vital signs and continue daily medication regimen with amlodipine and metoprolol. Hypothyroidism -Continue daily medication regimen with levothyroxine 125 g each morning. UTI ruled out, urine culture negative Nonobstructive right renal calculi, no further recommendations if develops symptoms may consider outpatient follow-up urology CODE STATUS: Full code DVT prophylaxis: SCDs Discussed with: Patient and RN. Anticipated discharge date: Tomorrow morning Anticipated discharge place: Home with palliative care A total of 35 minutes was spent on the care of this complex patient more than 50% of the time was spent in counseling and care coordination. Objective - Vital Signs Vital signs: Vital Signs Temp 98.3 F 04/24/21 01:15 Pulse 69 04/24/21 10:13 Resp 16 04/24/21 10:13 BP 146/66 04/24/21 01:15 Pulse Ox 95 04/24/21 01:15 Intake & Output 04/23/21 04/24/21 04/24/21 18:59 06:59 18:59 Intake Total 960 Balance 960 Intake: Oral 960 Other: Voiding Method Bedside Commode Bedside Commode Bedside Commode Diaper Diaper Diaper # Voids 2 2 # Bowel Movements 0 - Labs CBC & Chem 7: 04/24/21 11:35 04/24/21 05:18 Labs: Abnormal Lab Results - Last 24 Hours (Table) 04/18/21 04/19/21 04/23/21 Range/Units 01:38 06:03 04:10 WBC 12.21 H (4.50-10.00) X 10*3/uL RBC 2.71 L (4.10-5.20) X 10*6/uL Hgb 8.1 L (12.0-15.0) g/dL Hct 26.1 L (37.2-46.3) % MCV (80.0-97.0) fL MCHC 31.0 L (32.0-37.0) g/dL RDW 20.9 H (11.5-14.5) % Plt Count 112 L (140-440) X 10*3/uL Absolute Nucleated RBC 0.64 H (0.00-0.00) X 10*3/uL Lymphocytes # (Manual) 6.11 H (0.90-5.00) X 10*3/uL NRBC/100 WBC Diff 5.2 H (0.0-0.0) /100 WBCS Creatinine (0.6-1.5) mg/dL Est GFR (CKD-EPI)AfAm (60.0-200.0) Est GFR (CKD-EPI)NonAf (60.0-200.0) BUN/Creatinine Ratio (12.00-20.00) Ratio POC Glucose (mg/dL) (75-99) mg/dL Total Bilirubin (0.30-1.20) mg/dL AST (13-35) U/L Albumin (3.8-4.9) g/dL Globulin (1.6-3.3) g/dL Albumin/Globulin Ratio (1.60-3.17) g/dL RBC Folate 830 H (280 - 791) ng/mL Procalcitonin (0.02-0.09) ng/mL Free Talmo LC, Quant 13.68 H (0.33-1.94) mg/dL Free Lambda LC, Quant 11.61 H (0.57-2.63) mg/dL 04/24/21 04/24/21 04/24/21 Range/Units 05:18 05:18 05:18 WBC (4.50-10.00) X 10*3/uL RBC 2.34 L (4.10-5.20) X 10*6/uL Hgb 6.9 L* (12.0-15.0) g/dL Hct 22.9 L (37.2-46.3) % MCV 97.9 H (80.0-97.0) fL MCHC 30.1 L (32.0-37.0) g/dL RDW 18.9 H (11.5-14.5) % Plt Count 110 L (140-440) X 10*3/uL Absolute Nucleated RBC 0.41 H (0.00-0.00) X 10*3/uL Lymphocytes # (Manual) (0.90-5.00) X 10*3/uL NRBC/100 WBC Diff 4.2 H (0.0-0.0) /100 WBCS Creatinine 2.0 H (0.6-1.5) mg/dL Est GFR (CKD-EPI)AfAm 25.2 L (60.0-200.0) Est GFR (CKD-EPI)NonAf 21.7 L (60.0-200.0) BUN/Creatinine Ratio 11.31 L (12.00-20.00) Ratio POC Glucose (mg/dL) (75-99) mg/dL Total Bilirubin 0.20 L (0.30-1.20) mg/dL AST 65 H (13-35) U/L Albumin 2.7 L (3.8-4.9) g/dL Globulin 3.6 H (1.6-3.3) g/dL Albumin/Globulin Ratio 0.76 L (1.60-3.17) g/dL RBC Folate (280 - 791) ng/mL Procalcitonin 0.47 H (0.02-0.09) ng/mL Free Talmo LC, Quant (0.33-1.94) mg/dL Free Lambda LC, Quant (0.57-2.63) mg/dL 04/24/21/ Range/Units 11:22 11:35 WBC (4.50-10.00) X 10*3/uL RBC 2.60 L (4.10-5.20) X 10*6/uL Hgb 8.3 L (12.0-15.0) g/dL Hct 25.6 L (37.2-46.3) % MCV (80.0-97.0) fL MCHC (32.0-37.0) g/dL RDW 19.8 H (11.5-14.5) % Plt Count 130 L (140-440) X 10*3/uL Absolute Nucleated RBC (0.00-0.00) X 10*3/uL Lymphocytes # (Manual) (0.90-5.00) X 10*3/uL NRBC/100 WBC Diff (0.0-0.0) /100 WBCS Creatinine (0.6-1.5) mg/dL Est GFR (CKD-EPI)AfAm (60.0-200.0) Est GFR (CKD-EPI)NonAf (60.0-200.0) BUN/Creatinine Ratio (12.00-20.00) Ratio POC Glucose (mg/dL) 127 H (75-99) mg/dL Total Bilirubin (0.30-1.20) mg/dL AST (13-35) U/L Albumin (3.8-4.9) g/dL Globulin (1.6-3.3) g/dL Albumin/Globulin Ratio (1.60-3.17) g/dL RBC Folate (280 - 791) ng/mL Procalcitonin (0.02-0.09) ng/mL Free Talmo LC, Quant (0.33-1.94) mg/dL Free Lambda LC, Quant (0.57-2.63) mg/dL Microbiology - Last 24 Hours (Table) 04/18/21 01:05 Blood Culture - Final Blood No Growth after 144 hours 04/18/21 01:10 Blood Culture - Final Blood No Growth after 144 hours <Farrah Coker - Last Filed: 04/24/21 16:39> Subjective Mateusz Collazo NP rendered care for this patient independently, reviewed the findings and plan as documented in the note above. I did not physically speak with or examine the patient on this date. Objective - Vital Signs Vital signs: Vital Signs Temp 98.7 F 04/24/21 14:00 Pulse 64 04/24/21 14:00 Resp 16 04/24/21 14:00 BP 136/66 04/24/21 14:00 Pulse Ox 98 04/24/21 14:00 Intake & Output 04/23/21 04/24/21 04/24/21 18:59 06:59 18:59 Intake Total 960 Balance 960 Intake: Oral 960 Other: Voiding Method Bedside Commode Bedside Commode Bedside Commode Diaper Diaper Diaper # Voids 2 2 # Bowel Movements 0 - Labs CBC & Chem 7: 04/24/21 11:35 04/24/21 05:18 Labs: Abnormal Lab Results - Last 24 Hours (Table) 04/19/21 04/23/21 04/24/21 Range/Units 06:03 04:10 05:18 WBC 12.21 H (4.50-10.00) X 10*3/uL RBC 2.71 L (4.10-5.20) X 10*6/uL Hgb 8.1 L (12.0-15.0) g/dL Hct 26.1 L (37.2-46.3) % MCV (80.0-97.0) fL MCHC 31.0 L (32.0-37.0) g/dL RDW 20.9 H (11.5-14.5) % Plt Count 112 L (140-440) X 10*3/uL Absolute Nucleated RBC 0.64 H (0.00-0.00) X 10*3/uL Lymphocytes # (Manual) 6.11 H (0.90-5.00) X 10*3/uL Metamyelocytes # (Man) (0) k/uL Nucleated RBCs (0-0) /100 WBC NRBC/100 WBC Diff 5.2 H (0.0-0.0) /100 WBCS Creatinine (0.6-1.5) mg/dL Est GFR (CKD-EPI)AfAm (60.0-200.0) Est GFR (CKD-EPI)NonAf (60.0-200.0) BUN/Creatinine Ratio (12.00-20.00) Ratio POC Glucose (mg/dL) (75-99) mg/dL Total Bilirubin (0.30-1.20) mg/dL AST (13-35) U/L Albumin (3.8-4.9) g/dL Globulin (1.6-3.3) g/dL Albumin/Globulin Ratio (1.60-3.17) g/dL Procalcitonin 0.47 H (0.02-0.09) ng/mL Free Talmo LC, Quant 13.68 H (0.33-1.94) mg/dL Free Lambda LC, Quant 11.61 H (0.57-2.63) mg/dL 04/24/21 04/24/21 04/24/21 Range/Units 05:18 05:18 11:22 WBC (4.50-10.00) X 10*3/uL RBC 2.34 L (4.10-5.20) X 10*6/uL Hgb 6.9 L* (12.0-15.0) g/dL Hct 22.9 L (37.2-46.3) % MCV 97.9 H (80.0-97.0) fL MCHC 30.1 L (32.0-37.0) g/dL RDW 18.9 H (11.5-14.5) % Plt Count 110 L (140-440) X 10*3/uL Absolute Nucleated RBC 0.41 H (0.00-0.00) X 10*3/uL Lymphocytes # (Manual) (0.90-5.00) X 10*3/uL Metamyelocytes # (Man) (0) k/uL Nucleated RBCs (0-0) /100 WBC NRBC/100 WBC Diff 4.2 H (0.0-0.0) /100 WBCS Creatinine 2.0 H (0.6-1.5) mg/dL Est GFR (CKD-EPI)AfAm 25.2 L (60.0-200.0) Est GFR (CKD-EPI)NonAf 21.7 L (60.0-200.0) BUN/Creatinine Ratio 11.31 L (12.00-20.00) Ratio POC Glucose (mg/dL) 127 H (75-99) mg/dL Total Bilirubin 0.20 L (0.30-1.20) mg/dL AST 65 H (13-35) U/L Albumin 2.7 L (3.8-4.9) g/dL Globulin 3.6 H (1.6-3.3) g/dL Albumin/Globulin Ratio 0.76 L (1.60-3.17) g/dL Procalcitonin (0.02-0.09) ng/mL Free Talmo LC, Quant (0.33-1.94) mg/dL Free Lambda LC, Quant (0.57-2.63) mg/dL 04/24/21 Range/Units 11:35 WBC (4.50-10.00) X 10*3/uL RBC 2.60 L (4.10-5.20) X 10*6/uL Hgb 8.3 L (12.0-15.0) g/dL Hct 25.6 L (37.2-46.3) % MCV (80.0-97.0) fL MCHC (32.0-37.0) g/dL RDW 19.8 H (11.5-14.5) % Plt Count 130 L (140-440) X 10*3/uL Absolute Nucleated RBC (0.00-0.00) X 10*3/uL Lymphocytes # (Manual) (0.90-5.00) X 10*3/uL Metamyelocytes # (Man) 0.18 H (0) k/uL Nucleated RBCs 2 H (0-0) /100 WBC NRBC/100 WBC Diff (0.0-0.0) /100 WBCS Creatinine (0.6-1.5) mg/dL Est GFR (CKD-EPI)AfAm (60.0-200.0) Est GFR (CKD-EPI)NonAf (60.0-200.0) BUN/Creatinine Ratio (12.00-20.00) Ratio POC Glucose (mg/dL) (75-99) mg/dL Total Bilirubin (0.30-1.20) mg/dL AST (13-35) U/L Albumin (3.8-4.9) g/dL Globulin (1.6-3.3) g/dL Albumin/Globulin Ratio (1.60-3.17) g/dL Procalcitonin (0.02-0.09) ng/mL Free Talmo LC, Quant (0.33-1.94) mg/dL Free Lambda LC, Quant (0.57-2.63) mg/dL Microbiology - Last 24 Hours (Table) 04/18/21 01:05 Blood Culture - Final Blood No Growth after 144 hours 04/18/21 01:10 Blood Culture - Final Blood No Growth after 144 hours
[2021-04-24 15:38] LABS: Eosinophils # (M) 0.27 k/uL (0-0.7); Metamyelocytes # (M) 0.18 k/uL (0); Metamyelocytes % 2 %; Neutrophils % (M) 51 %; Nucleated Red Blood Cells 2 /100 WBC (0-0); Total Cells Counted 200
[2021-04-24 15:39] LABS: Neutrophils # (M) 4.54 k/uL (1.3-7.7); Polychromasia Present; WBC 8.9 k/uL (3.8-10.6)
[2021-04-24 15:40] LABS: Ovalocytes Present
[2021-04-24 16:50] LABS: Glucose,Whole Blood 130 mg/dL (75-99)
[2021-04-24] MEDS: DOXYCYCLINE 100 MG CAP PO SCH ×2 (17:33→21:24)
[2021-04-24] MEDS ORDERED: DOXYCYCLINE 100 MG CAP PO SCH (21:00)
[2021-04-24 21:14] LABS: Glucose,Whole Blood 165 mg/dL (75-99)
[2021-04-25 04:43] VITALS: PULSE 69
[2021-04-25] MEDS: LEVOTHYROXINE 125 MCG TAB PO SCH (04:59)
[2021-04-25 07:25] VITALS: BP 161/60; RESP 18; TEMP 98.4
[2021-04-25] MEDS: FUROSEMIDE 20 MG TAB PO SCH (08:08)
[2021-04-25] MEDS: SODIUM BICARBONATE TAB 650 MG TAB PO SCH (08:08)
[2021-04-25] MEDS: amLODIPine 10 MG TAB PO SCH (08:08)
[2021-04-25] MEDS: DOXYCYCLINE 100 MG CAP PO SCH (08:08)
[2021-04-25] MEDS: PANTOPRAZOLE 40 MG TABLET PO SCH (08:08)
[2021-04-25] MEDS: METOPROLOL TARTRATE 50 MG TAB PO SCH (08:08)
[2021-04-25 09:02] LABS: Albumin 2.6 g/dL (3.8-4.9); Albumin/Globulin Ratio 0.74 (1.60-3.17); BUN/Creat Ratio 10.55 Ratio (12.00-20.00); Blood Urea Nitrogen 21.1 mg/dL (9.0-27.0); Calcium 9.6 mg/dL (8.7-10.3); Globulin 3.5 g/dL (1.6-3.3); Magnesium 2.3 mg/dL (1.5-2.4); Non-African American GFR(CKD) 21.6 (60.0-200.0); Total Bilirubin 0.3 mg/dL (0.30-1.20); Total Protein 6.1 g/dL (6.2-8.2)
--- NOTE | 2021-04-25 09:24 | P.PN ---
Subjective Patient is seen in follow-up for acute kidney injury on chronic kidney disease. Creatinine stable at 2.0. Denies chest pain or shortness of breath. On 2 L nasal cannula. No edema. Has been voiding. Hemodynamically stable. Oral intake fair. Vital signs are stable. General: The patient appeared well nourished and normally developed. HEENT: Head exam is unremarkable. LUNGS: Breath sounds decreased. HEART: Rate and Rhythm are regular. ABDOMEN: Soft, no distention. EXTREMITITES: No edema. Objective - Vital Signs Vital signs: Vital Signs Temp 98.4 F 04/25/21 07:23 Pulse 69 04/25/21 07:23 Resp 18 04/25/21 07:23 BP 161/60 04/25/21 07:23 Pulse Ox 97 04/25/21 08:33 Intake & Output 04/24/21 04/25/21 04/25/21 18:59 06:59 18:59 Intake Total 400 Output Total 650 Balance 400 -650 Intake: Oral 400 Output: Urine 650 Other: Voiding Method Bedside Commode Bedside Commode Diaper Diaper # Voids 3 - Labs CBC & Chem 7: 04/24/21 11:35 04/25/21 04:56 Labs: Abnormal Lab Results - Last 24 Hours (Table) 04/23/21 04/24/21 04/24/21 Range/Units 04:10 05:18 05:18 RBC 2.34 L (4.10-5.20) X 10*6/uL Hgb 6.9 L* (12.0-15.0) g/dL Hct 22.9 L (37.2-46.3) % MCV 97.9 H (80.0-97.0) fL MCHC 30.1 L (32.0-37.0) g/dL RDW 18.9 H (11.5-14.5) % Plt Count 110 L (140-440) X 10*3/uL Absolute Nucleated RBC 0.41 H (0.00-0.00) X 10*3/uL Metamyelocytes # (Man) (0) k/uL Nucleated RBCs (0-0) /100 WBC NRBC/100 WBC Diff 4.2 H (0.0-0.0) /100 WBCS Creatinine (0.6-1.5) mg/dL Est GFR (CKD-EPI)AfAm (60.0-200.0) Est GFR (CKD-EPI)NonAf (60.0-200.0) BUN/Creatinine Ratio (12.00-20.00) Ratio POC Glucose (mg/dL) (75-99) mg/dL Total Bilirubin (0.30-1.20) mg/dL AST (13-35) U/L Total Protein (6.2-8.2) g/dL Albumin (3.8-4.9) g/dL Globulin (1.6-3.3) g/dL Albumin/Globulin Ratio (1.60-3.17) g/dL Procalcitonin 0.47 H (0.02-0.09) ng/mL Free Lafitte LC, Quant 13.68 H (0.33-1.94) mg/dL Free Lambda LC, Quant 11.61 H (0.57-2.63) mg/dL 04/24/21 04/24/21 04/24/21 Range/Units 05:18 11:22 11:35 RBC 2.60 L (4.10-5.20) X 10*6/uL Hgb 8.3 L (12.0-15.0) g/dL Hct 25.6 L (37.2-46.3) % MCV (80.0-97.0) fL MCHC (32.0-37.0) g/dL RDW 19.8 H (11.5-14.5) % Plt Count 130 L (140-440) X 10*3/uL Absolute Nucleated RBC (0.00-0.00) X 10*3/uL Metamyelocytes # (Man) 0.18 H (0) k/uL Nucleated RBCs 2 H (0-0) /100 WBC NRBC/100 WBC Diff (0.0-0.0) /100 WBCS Creatinine 2.0 H (0.6-1.5) mg/dL Est GFR (CKD-EPI)AfAm 25.2 L (60.0-200.0) Est GFR (CKD-EPI)NonAf 21.7 L (60.0-200.0) BUN/Creatinine Ratio 11.31 L (12.00-20.00) Ratio POC Glucose (mg/dL) 127 H (75-99) mg/dL Total Bilirubin 0.20 L (0.30-1.20) mg/dL AST 65 H (13-35) U/L Total Protein (6.2-8.2) g/dL Albumin 2.7 L (3.8-4.9) g/dL Globulin 3.6 H (1.6-3.3) g/dL Albumin/Globulin Ratio 0.76 L (1.60-3.17) g/dL Procalcitonin (0.02-0.09) ng/mL Free Lafitte LC, Quant (0.33-1.94) mg/dL Free Lambda LC, Quant (0.57-2.63) mg/dL 04/24/21 04/24/21 04/25/21 Range/Units 16:48 21:13 04:56 RBC (4.10-5.20) X 10*6/uL Hgb (12.0-15.0) g/dL Hct (37.2-46.3) % MCV (80.0-97.0) fL MCHC (32.0-37.0) g/dL RDW (11.5-14.5) % Plt Count (140-440) X 10*3/uL Absolute Nucleated RBC (0.00-0.00) X 10*3/uL Metamyelocytes # (Man) (0) k/uL Nucleated RBCs (0-0) /100 WBC NRBC/100 WBC Diff (0.0-0.0) /100 WBCS Creatinine 2.0 H (0.6-1.5) mg/dL Est GFR (CKD-EPI)AfAm 25.0 L (60.0-200.0) Est GFR (CKD-EPI)NonAf 21.6 L (60.0-200.0) BUN/Creatinine Ratio 10.55 L (12.00-20.00) Ratio POC Glucose (mg/dL) 130 H 165 H (75-99) mg/dL Total Bilirubin (0.30-1.20) mg/dL AST 64 H (13-35) U/L Total Protein 6.1 L (6.2-8.2) g/dL Albumin 2.6 L (3.8-4.9) g/dL Globulin 3.5 H (1.6-3.3) g/dL Albumin/Globulin Ratio 0.74 L (1.60-3.17) g/dL Procalcitonin (0.02-0.09) ng/mL Free Lafitte LC, Quant (0.33-1.94) mg/dL Free Lambda LC, Quant (0.57-2.63) mg/dL Assessment and Plan Plan: Assessment: 1. Acute kidney injury secondary to ATN secondary to acute blood loss anemia. Creatinine 2.0. UA with 2+ proteinuria. Serologies negative except positive EVELYN. No hydronephrosis noted on CAT scan. 2. Chronic kidney disease stage IIIB with baseline creatinine near 1.5 secondary to nephrosclerosis. 3. 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 4. Acute blood loss anemia status post blood transfusion this admission. Iron replete. Component of chronic kidney disease. On Aranesp. Hematology following as well. 5. Hypertension with chronic kidney disease. Stable. 6. Metabolic acidosis secondary to chronic kidney disease maintained on oral bicarbonate. Improved. Plan: Maintain oral Lasix. Continue to monitor renal function and urine output. Due to patient's advanced age and comorbidities, would hold off on kidney biopsy. Avoid nephrotoxins. Patient will need to follow-up outpatient 1 week post discharge. Decrease bicarb to once daily.
[2021-04-25 09:48] LABS: HCT 22.3 % (37.2-46.3); HGB 6.8 g/dL (12.0-15.0); MCH 30.2 pg (27.0-32.0); MCHC 30.5 g/dL (32.0-37.0); MCV 99.1 fL (80.0-97.0); Mean Platelet Volume 12.2 fL (9.5-12.2); NRBC Per 100 WBC 4.4 /100 WBCS (0.0-0.0); Platelet Count 102 X 10*3/uL (140-440); RBC 2.25 X 10*6/uL (4.10-5.20); WBC 10.06 X 10*3/uL (4.50-10.00)
[2021-04-25 10:30] LABS: Anisocytosis Slight; HCT 24.8 % (34.0-46.0); HGB 8.1 gm/dL (11.4-16.0); Hypochromasia Moderate; MCH 32.3 pg (25.0-35.0); MCHC 32.9 g/dL (31.0-37.0); MCV 98.3 fL (80.0-100.0); Macrocytosis Slight; Mean Platelet Volume 11.9; Platelet Count 120 k/uL (150-450); Poikilocytosis Slight; RBC 2.52 m/uL (3.80-5.40); RDW 19.4 % (11.5-15.5); WBC 9.3 k/uL (3.8-10.6)
[2021-04-25 12:50] LABS: Albumin 2.6 g/dL (3.80-4.90); Gamma Globulin 1.52 g/dL (0.70-1.50)
[2021-04-25 12:57] VITALS: BMI 22.8
--- NOTE | 2021-04-25 13:53 | P.PN ---
Subjective Progress Note Date: 04/25/21 Principal diagnosis: anemia In f/u pt states she didn't sleep well last night. Tired today. Objective - Vital Signs Vital signs: Vital Signs Temp 98.4 F 04/25/21 07:23 Pulse 69 04/25/21 07:23 Resp 18 04/25/21 08:00 BP 161/60 04/25/21 07:23 Pulse Ox 97 04/25/21 08:33 Intake & Output 04/24/21 04/25/21 04/25/21 18:59 06:59 18:59 Intake Total 400 Output Total 650 Balance 400 -650 Weight 56.699 kg Intake: Oral 400 Output: Urine 650 Other: Voiding Method Bedside Commode Bedside Commode Bedside Commode Diaper Diaper Diaper # Voids 3 - Constitutional General appearance: Present: average body habitus, cooperative, no acute distress - Musculoskeletal Musculoskeletal: Present: generalized weakness - Labs CBC & Chem 7: 04/25/21 10:17 04/25/21 04:56 Labs: Abnormal Lab Results - Last 24 Hours (Table) 04/23/21 04/24/21 04/24/21 Range/Units 04:10 11:35 16:48 WBC (4.50-10.00) X 10*3/uL RBC (4.10-5.20) X 10*6/uL Hgb (12.0-15.0) g/dL Hct (37.2-46.3) % MCV (80.0-97.0) fL MCHC (32.0-37.0) g/dL RDW (11.5-14.5) % Plt Count (140-440) X 10*3/uL Absolute Nucleated RBC (0.00-0.00) X 10*3/uL Metamyelocytes # (Man) 0.18 H (0) k/uL Nucleated RBCs 2 H (0-0) /100 WBC NRBC/100 WBC Diff (0.0-0.0) /100 WBCS Creatinine (0.6-1.5) mg/dL Est GFR (CKD-EPI)AfAm (60.0-200.0) Est GFR (CKD-EPI)NonAf (60.0-200.0) BUN/Creatinine Ratio (12.00-20.00) Ratio POC Glucose (mg/dL) 130 H (75-99) mg/dL AST (13-35) U/L Total Protein (6.2-8.2) g/dL Albumin (3.8-4.9) g/dL Albumin (PEP) 2.60 L (3.80-4.90) g/dL Globulin (1.6-3.3) g/dL Albumin/Globulin Ratio (1.60-3.17) g/dL Dkrhf-2-Weymrqheh 0.42 H (0.10-0.40) g/dL Gamma Globulins 1.52 H (0.70-1.50) g/dL 04/24/21 04/25/21 04/25/21 Range/Units 21:13 04:56 04:56 WBC 10.06 H (4.50-10.00) X 10*3/uL RBC 2.25 L (4.10-5.20) X 10*6/uL Hgb 6.8 L* (12.0-15.0) g/dL Hct 22.3 L (37.2-46.3) % MCV 99.1 H (80.0-97.0) fL MCHC 30.5 L (32.0-37.0) g/dL RDW 19.0 H (11.5-14.5) % Plt Count 102 L (140-440) X 10*3/uL Absolute Nucleated RBC 0.44 H (0.00-0.00) X 10*3/uL Metamyelocytes # (Man) (0) k/uL Nucleated RBCs (0-0) /100 WBC NRBC/100 WBC Diff 4.4 H (0.0-0.0) /100 WBCS Creatinine 2.0 H (0.6-1.5) mg/dL Est GFR (CKD-EPI)AfAm 25.0 L (60.0-200.0) Est GFR (CKD-EPI)NonAf 21.6 L (60.0-200.0) BUN/Creatinine Ratio 10.55 L (12.00-20.00) Ratio POC Glucose (mg/dL) 165 H (75-99) mg/dL AST 64 H (13-35) U/L Total Protein 6.1 L (6.2-8.2) g/dL Albumin 2.6 L (3.8-4.9) g/dL Albumin (PEP) (3.80-4.90) g/dL Globulin 3.5 H (1.6-3.3) g/dL Albumin/Globulin Ratio 0.74 L (1.60-3.17) g/dL Aidal-3-Twosghunt (0.10-0.40) g/dL Gamma Globulins (0.70-1.50) g/dL 04/25/21 Range/Units 10:17 WBC (4.50-10.00) X 10*3/uL RBC 2.52 L (4.10-5.20) X 10*6/uL Hgb 8.1 L (12.0-15.0) g/dL Hct 24.8 L (37.2-46.3) % MCV (80.0-97.0) fL MCHC (32.0-37.0) g/dL RDW 19.4 H (11.5-14.5) % Plt Count 120 L (140-440) X 10*3/uL Absolute Nucleated RBC (0.00-0.00) X 10*3/uL Metamyelocytes # (Man) (0) k/uL Nucleated RBCs (0-0) /100 WBC NRBC/100 WBC Diff (0.0-0.0) /100 WBCS Creatinine (0.6-1.5) mg/dL Est GFR (CKD-EPI)AfAm (60.0-200.0) Est GFR (CKD-EPI)NonAf (60.0-200.0) BUN/Creatinine Ratio (12.00-20.00) Ratio POC Glucose (mg/dL) (75-99) mg/dL AST (13-35) U/L Total Protein (6.2-8.2) g/dL Albumin (3.8-4.9) g/dL Albumin (PEP) (3.80-4.90) g/dL Globulin (1.6-3.3) g/dL Albumin/Globulin Ratio (1.60-3.17) g/dL Onefe-1-Hfvbhdrst (0.10-0.40) g/dL Gamma Globulins (0.70-1.50) g/dL Assessment and Plan (1) Symptomatic anemia Current Visit: Yes Status: Acute Priority: High Code(s): D64.9 - ANEMIA, UNSPECIFIED SNOMED Code(s): 504026282 (2) Acute on chronic kidney failure Current Visit: Yes Status: Acute Priority: High Code(s): N17.9 - ACUTE KIDNEY FAILURE, UNSPECIFIED; N18.9 - CHRONIC KIDNEY DISEASE, UNSPECIFIED SNOMED Code(s): 426157401 Plan: Chart review found progressive anemia, progressive worsening renal function. 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 Exacerbated by CKD. Iron studies done, WNDL. Ferritin level elevated likely from recent transfusion, elevated level suggestive of inflammation. SPEP, no monoclonal paraproteinemia. K/L light chains elevated but ratio normal, most consistent with inflammation. Still pending epo level. Aranesp initiated by Nephrology. Hgb 8.1 today.
--- NOTE | 2021-04-25 16:57 | P.DS ---
<Mateusz Collazo - Last Filed: 04/25/21 16:50> Providers Expected date of discharge: 04/25/21 Hospital Course: Discharge Diagnosis: Acute on chronic anemia status post transfusion of 1 unit PRBCs. 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 Per documentation in chart patient was previously on anticoagulant Eliquis, patient's granddaughter reports they started this on her grandmother on this anticoagulant a couple hospitalizations back but she was not sure why and states that her grandmother only took it for 30 days and never took it again secondary to cost and would not like her started back on this medication. Patient was brought to the emergency department for evaluation for increased weakness on 04/18/21. Upon evaluation she was found to have leukocytosis with WBC count of 13.1, and acute on chronic anemia with hemoglobin of 6.9 requiring transfusion of 1 unit PRBCs. In addition patient was found to have an acute kidney injury on stage III CKD with BUN 27, creatinine 2.52, and GFR of 16 with baseline creatinine of 1.7. Patient underwent a CT head which was negative for acute intercranial process. CT abdomen and pelvis without contrast was completed revealing cholestasis and changes in chest consistent with congestive heart failure, nonobstructive 3 mm right renal calculi with no obstruction, and negative for acute intra-abdominal abnormalities. An EKG was completed revealing sinus rhythm at 64 bpm with no noted T-wave or ST abnormalities. 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 UTI was concerning for infection however ruled out with urine culture negative. Patient was admitted under our services with consultation to nephrology and pulmonology. Echocardiogram completed 02/25/21 revealing an EF between 55 and 60% with a moderately dilated left atrium, moderate mitral annular calcification, mild mitral regurgitation, mild to moderate tricuspid regurgitation, and moderate pulmonary hypertension. Patient monitored over 7 day Hospital course. She was monitored closely and treated by our medical team along with specialist from nephrology and hematology. Patient's anticoagulant was discontinued as requested by her family. Patient was treated for her acute kidney injury on her chronic kidney disease which improved and she is recommended to follow up outpatient with nephrology for long-term monitoring/management. Blood cultures showing no growth after 120 hours. Patient was found to have right shoulder subluxation deformity secondary to arthritic changes, sling was applied, patient to follow- up with Dr. Carranza in office for further evaluation. Pro-calcitonin improved but remains slightly elevated patient being discharged home on doxycycline 100 mg twice a day for 4 additional days to total a 10 day antibiotic course for treatment of her pneumonia. Patient is medically stable and remains at baseline mentation. Patient is being discharged home with palliative care into the care of her daughter and 2 granddaughters. Patient medically stable for discharge at this time and to follow-up with her PCP, balloon sander, testing consultant and av specialist. Physical exam: Vital signs reviewed and stable. General: Nontoxic, no distress and appears stated age. Derm: Skin warm and dry, normal coloration for ethnicity. Head: Atraumatic, normocephalic and symmetric. Eyes: EOMs intact, no lid lag, and anicteric sclera Mouth: no lip lesions, mucus membranes moist Cardiovascular: regular rate and rhythm with normal S1S2, systolic murmur, positive posterior tibial pulses bilaterally, and cap refill < 2 seconds. Lungs: Respirations even, regular, and unlabored on room air. Lungs CTA bilaterally, no rhonchi, no rales, no wheezing, and no accessory muscle usage. Abdominal: soft, nontender to palpation, no guarding, no appreciable organom egaly Ext: ROM intact. No gross muscle atrophy, no edema, no contractures Neuro: Speech clear, face symmetrical and CN II-XII grossly intact with no noted focal neuro deficits with the exception of being alert to self only which is baseline mentation per granddaughter. Psych: Patient alert and oriented to self only, pleasantly confused. A total of 50 minutes of time were spent preparing this complex discharge summary. Patient Condition at Discharge: Stable Plan - Discharge Summary New Discharge Prescriptions: New Doxycycline [Vibramycin] 100 mg PO BID 4 Days #8 cap Continue Ferrous Sulfate [Iron (65 MG Elemental)] 325 mg PO BID-W/MEALS #60 tab Metoprolol Tartrate [Lopressor] 50 mg PO BID #60 tab Melatonin 5 mg PO HS PRN #5 tablet PRN Reason: Insomnia Sodium Bicarbonate Tab 650 mg PO BID #60 tablet Levothyroxine Sodium 125 mcg PO DAILY #30 tablet Nitroglycerin Oint [Nitro-Bid Oint] 1 inch TOPICAL TID #20 packet amLODIPine [Norvasc] 10 mg PO DAILY #30 tab Changed Furosemide [Lasix] 20 mg PO BID #30 tab Discontinued Apixaban [Eliquis] 2.5 mg PO BID 30 Days #60 tab Losartan [Cozaar] 25 mg PO DAILY #30 tab hydrALAZINE HCL [Apresoline] 25 mg PO BID #60 tab Discharge Medication List Levothyroxine Sodium 125 mcg PO DAILY #30 tablet 07/13/20 [Rx] Ferrous Sulfate [Iron (65 MG Elemental)] 325 mg PO BID-W/MEALS #60 tab 03/04/21 [Rx] Melatonin 5 mg PO HS PRN #5 tablet 03/04/21 [Rx] Metoprolol Tartrate [Lopressor] 50 mg PO BID #60 tab 03/04/21 [Rx] Nitroglycerin Oint [Nitro-Bid Oint] 1 inch TOPICAL TID #20 packet 03/04/21 [Rx] amLODIPine [Norvasc] 10 mg PO DAILY #30 tab 03/04/21 [Rx] Sodium Bicarbonate Tab 650 mg PO BID #60 tablet 03/28/21 [Rx] Doxycycline [Vibramycin] 100 mg PO BID 4 Days #8 cap 04/25/21 [Rx] Furosemide [Lasix] 20 mg PO BID #30 tab 04/25/21 [Rx] Follow up Appointment(s)/Referral(s): Darinel Su MD [STAFF PHYSICIAN] - 4 Weeks (Office will be calling you with your appointment date and time.) [facility] [NON-STAFF] - As Needed Care,[facility] [NON-STAFF] - ([facility]iative Care team will contact you to schedule in home visits. ) Apolinar Carranza DO [Doctor of Osteopathic Medicine] - 05/03/21 11:20 am (Patient with moderate arthritic changes and chronic subluxation deformity of right shoulder, sling applied. Patient to follow-up outpatient in office.) Minh Carlson DO [STAFF PHYSICIAN] - 06/18/21 9:00 am Mando Ornelas MD [Primary Care Provider] - 05/09/21 3:30 pm Patient Instructions/Handouts: Urinary Tract Infection in Women (DC), Iron Deficiency Anemia (DC), Anemia (DC), Urinary Tract Infection in Older Adults (DC) Activity/Diet/Wound Care/Special Instructions: Activity: As tolerated. Take breaks as needed. Diet: Heart healthy and carb consistent diet. Avoid salts, or foods with hidden salts such as canned or boxed foods and frozen dinners. Extra salt makes your heart work harder and traps the fluid in your body for longer. Special Instructions: Take all of your medications as directed and remember to keep all of your doctor's appointments and follow-up as needed. We are discharging you home with palliative care services. This has been discussed with your granddaughter, Renay. We will be sending a nurse out to the house to assist you and your family with your needs. Follow up in office with Dr. Su for your your scheduled weekly Darbepoetin injections. They are due every 7 days with last dose administered 04/19/21 and next dose due 04/26/21. Please call office to schedule injection. Thank you for allowing us to participate in your care, it was truly a pleasure having you for our patient!!! CALL [facility] FOR OXYGEN WHEN PATIENT IS HOME: [phone] Discharge Disposition: HOME WITH HOME HEALTH SERVICES <Farrah Coker - Last Filed: 04/25/21 17:37> Providers Date of admission: 04/18/21 03:29 Attending physician: Horace Jane MD Consults: 04/19/21 08:42 Consult Physician Routine Consulting Provider: Minh Carlson Consult Reason/Comments: renal faiure Do you want consulting provider notified?: Yes 04/21/21 14:04 Consult Physician Routine Consulting Provider: Darinel Su Consult Reason/Comments: anemia Do you want consulting provider notified?: Yes Primary care physician: [facility] Course: Mateusz Collazo NP rendered care for this patient independently, reviewed the findings and plan as documented in the note above. I did not physically speak with or examine the patient on this date.
[2021-04-26] MEDS ORDERED: SODIUM BICARBONATE TAB 650 MG TAB PO SCH (09:00)
== END 2021-04-25 13:42 | disposition home health service (06) | DRG 682 ==
LOC: EC 01:02 → 4SSUR 03:29
PROVIDERS: ADMIT Internal Medicine; ATTEND Internal Medicine
PROC: 30233N1 Transfusion of Nonautologous Red Blood Cells into Peripheral Vein, Percutaneous Approach (ICD-10-PCS; principal; 2021-04-18)
PROC: 2W38XYZ Immobilization of Right Upper Extremity using Other Device (ICD-10-PCS; 2021-04-22)
DX: N17.0 Acute kidney failure with tubular necrosis (principal); I50.33 Acute on chronic diastolic (congestive) heart failure; J96.01 Acute respiratory failure with hypoxia; J18.9 Pneumonia, unspecified organism; I13.0 Hypertensive heart and chronic kidney disease with heart failure and stage 1 through stage 4 chronic kidney disease, or unspecified chronic kidney disease; J44.0 Chronic obstructive pulmonary disease with (acute) lower respiratory infection; E87.2 Acidosis; D62 Acute posthemorrhagic anemia; I27.20 Pulmonary hypertension, unspecified; D46.9 Myelodysplastic syndrome, unspecified; E11.22 Type 2 diabetes mellitus with diabetic chronic kidney disease; F03.90 Unspecified dementia, unspecified severity, without behavioral disturbance, psychotic disturbance, mood disturbance, and anxiety; N18.32 Chronic kidney disease, stage 3b; Z51.5 Encounter for palliative care; Z20.822 Contact with and (suspected) exposure to COVID-19; R62.7 Adult failure to thrive; Z68.22 Body mass index [BMI] 22.0-22.9, adult; E03.9 Hypothyroidism, unspecified; E78.5 Hyperlipidemia, unspecified; D53.9 Nutritional anemia, unspecified; I65.23 Occlusion and stenosis of bilateral carotid arteries; K80.20 Calculus of gallbladder without cholecystitis without obstruction; N20.0 Calculus of kidney; S43.001A Unspecified subluxation of right shoulder joint, initial encounter; M19.012 Primary osteoarthritis, left shoulder; M19.011 Primary osteoarthritis, right shoulder; M19.041 Primary osteoarthritis, right hand; M19.042 Primary osteoarthritis, left hand; H40.9 Unspecified glaucoma; I08.3 Combined rheumatic disorders of mitral, aortic and tricuspid valves; I25.2 Old myocardial infarction; H91.90 Unspecified hearing loss, unspecified ear; Z79.01 Long term (current) use of anticoagulants; Z79.890 Hormone replacement therapy; Z79.899 Other long term (current) drug therapy; Z91.81 History of falling; Z86.14 Personal history of Methicillin resistant Staphylococcus aureus infection; Z87.01 Personal history of pneumonia (recurrent); Z86.19 Personal history of other infectious and parasitic diseases; Z87.2 Personal history of diseases of the skin and subcutaneous tissue; Z98.42 Cataract extraction status, left eye; Z98.41 Cataract extraction status, right eye; Z87.39 Personal history of other diseases of the musculoskeletal system and connective tissue; Z86.79 Personal history of other diseases of the circulatory system; Z88.8 Allergy status to other drugs, medicaments and biological substances
CPT/HCPCS: 36415; 70450; 71046; 74176; 80053; 81001; 82272; 82570; 82607; 82668; 82728; 82747; 83540; 83550; 83605; 83690; 83735; 83880; 83883; 84145; 84156; 84165; 84484; 85025; 85027; 85610; 85730; 86038; 86039; 86160; 86225; 86255; 86334; 86335; 86706; 86803; 86850; 86900; 86901; 86920; 87040; 87086; 87340; 87502; 87635; 93005; 94760; 96361; 96365; 99285

== ENCOUNTER → 2021-06-17 | Outpatient (CLI) | payer MEDICARE ==
[2021-06-17 23:27] LABS: HGB 8.2 g/dL (12.0-15.0); MCH 31.3 pg (27.0-32.0); MCHC 30.4 g/dL (32.0-37.0); MCV 103.1 fL (80.0-97.0); NRBC Per 100 WBC 7.4 /100 WBCS (0.0-0.0); Platelet Count 140 X 10*3/uL (140-440); RBC 2.62 X 10*6/uL (4.10-5.20); RDW 25.4 % (11.5-14.5); WBC 10.43 X 10*3/uL (4.50-10.00)
[2021-06-17 23:55] LABS: % Iron Saturation 54.78 (12.00-45.00); Iron 125 ug/dL (50-170); Magnesium 2.4 mg/dL (1.5-2.4); Phosphorus 3.2 mg/dL (2.4-5.1); Total Iron Binding Capacity 228 ug/dL (228-460)
[2021-06-18 00:22] LABS: Vitamin B12 >2000.0 pg/mL (200.0-944.0)
[2021-06-18 00:52] LABS: African American GFR (CKD) 35.7 (60.0-200.0); BUN/Creat Ratio 7.85 Ratio (12.00-20.00); Blood Urea Nitrogen 11.7 mg/dL (9.0-27.0); Calcium 13.2 mg/dL (8.7-10.3); Carbon Dioxide 23.1 mmol/L (20.0-27.5); Chloride 104 mmol/L (96-109); Glucose 76 mg/dL (70-110); Non-African American GFR(CKD) 30.8 (60.0-200.0); Sodium 144 mmol/L (135-145)
== END | disposition home or self-care (01) ==
LOC: LABWHC1 14:44
PROVIDERS: ATTEND Nurse Practitioner Acute Care
DX: N18.4 Chronic kidney disease, stage 4 (severe) (principal); D64.9 Anemia, unspecified; N39.0 Urinary tract infection, site not specified; N25.81 Secondary hyperparathyroidism of renal origin; E55.9 Vitamin D deficiency, unspecified; M10.9 Gout, unspecified
CPT/HCPCS: 36415; 80048; 82306; 82607; 82728; 82746; 83036; 83540; 83550; 83735; 83970; 84100; 84550; 85027

== ENCOUNTER → 2021-06-20 | Outpatient (CLI) | payer MEDICARE ==
[2021-06-21 11:13] LABS: Free Kappa Lt Chain Qnt, Serum 14.65 mg/dL (0.33-1.94)
== END | disposition home or self-care (01) ==
LOC: LABWHC1 11:50
PROVIDERS: ATTEND Nurse Practitioner Acute Care
DX: E83.52 Hypercalcemia (principal)
CPT/HCPCS: 36415; 82164; 82306; 83883; 86334